=== PATIENT | male | born 1960 | race Caucasian/White ===

== ENCOUNTER → 2020-05-17 15:41 | Outpatient (CLI) | payer MEDICARE, OTHER, SELFPAY ==
--- NOTE | ~2020-05-17 | XR_ITS ---
EXAMINATION: XR shoulder RT min 2V DATE: 05/17/2020 16:18 INDICATION: Right shoulder pain TECHNIQUE: AP internally and externally rotated, AP oblique externally rotated and axillary views of the right shoulder were obtained. COMPARISON: None FINDINGS: Normal alignment. No fracture.Severe osteoarthritis at the right glenohumeral joint with severe join t space narrowing approaching [id number], subarticular cystic change at the inferior glenoid and sm all marginal osteophytes along the inferior humeral head and glenoid. Moderate acromioclavicular oste oarthritis. Soft tissues are unremarkable. Visualized portions of the lungs are clear. IMPRESSION: Moderate acromioclavicular and severe glenohumeral osteoarthritis. Reviewed, dictated and finalized at location A.
== END ==
PROVIDERS: PCP Internal Medicine; Visit Provider Nurse Practitioner Adult Health
DX: M19.011 Primary osteoarthritis, right shoulder (principal)
CPT/HCPCS: 73030

== ENCOUNTER 2024-11-20 14:34 | Outpatient (CLI) | payer MEDICARE, SELFPAY ==
[2024-11-20 14:46] LABS: Basophils Absolute Auto 0.1 K/mm3 (0.0-0.1); Basophils Percent Auto 0.8 % (0.2-1.2); Eosinophils Absolute Auto 0.3 K/mm3 (0-0.3); Eosinophils Percent Auto 4.5 % (0-4.4); Hematocrit 39.4 % (42.0-52.0); Immature Granulocyte Absolute 0.02 K/mm3 (0.00-0.031); Immature Granulocyte Percent A 0.3 % (0-0.5); Lymphocytes Absolute Auto 2.22 K/mm3 (0.9-3.2); Lymphocytes Percent Auto 30.4 % (18.3-44.2); Mean Corpuscular Hemoglobin 28.5 pg (26-34); Mean Corpuscular Volume 86.4 fl (80-100); Mean Platelet Volume 8.7 fl (7.4-10.4); Monocytes Absolute Auto 0.5 K/mm3 (0.1-0.6); Monocytes Percent Auto 6.4 % (2.6-8.5); Neutrophils Absolute Auto 4.2 K/mm3 (1.3-6.7); Neutrophils Percent Auto 57.6 % (45.5-73.1); Platelet Count Result 205 k/mm3 (150-375); Red Blood Count 4.56 M/mm3 (4.6-6.20); Red Cell Distribution Width 13.6 % (11.5-14.5); White Blood Count 7.3 K/mm3 (4.5-10.0)
[2024-11-20 16:29] LABS: Alanine Aminotransferase 21 U/L (6-50); Albumin Level 4.3 g/dL (3.5-5.1); Alkaline Phosphatase 82 U/L (38-126); Anion Gap 8 mmol/L (4-12); Aspartate Amino Transferase 55 U/L (17-59); Bilirubin,Total 0.7 mg/dL (0.2-1.3); Blood Urea Nitrogen 19 mg/dL (9-20); Calcium 9.1 mg/dL (8.4-10.2); Carbon Dioxide 29 mmol/L (22-30); Chloride 101 mmol/L (98-107); Estimated Glomerular Filt Rate > 60; Glucose 95 mg/dL (65-110); Potassium 4.3 mmol/L (3.4-5.0); Sodium 138 mmol/L (137-145)
[2024-11-20 16:59] LABS: Prostate Specific Antigen 5.3 ng/mL (< OR = 4.0)
== END 2024-11-20 14:35 | disposition home or self-care (01) ==
LOC: ANHLAB 14:36
PROVIDERS: PCP Internal Medicine; Visit Provider Internal Medicine Hematology & Oncology
DX: C61 Malignant neoplasm of prostate (principal)
CPT/HCPCS: 36415; 80053; 84153; 84402; 84403; 85025

== ENCOUNTER 2024-11-23 10:22 | Outpatient (CLI) | payer MEDICARE, SELFPAY | END 2024-11-23 10:23 | disposition home or self-care (01) | LOC: ANHAUDIO 10:22 | PROVIDERS: PCP Internal Medicine; Visit Provider Internal Medicine | DX: H90.3 Sensorineural hearing loss, bilateral (principal); H93.13 Tinnitus, bilateral | CPT/HCPCS: 92557; 92567 ==

== ENCOUNTER 2024-11-30 13:37 | Outpatient (CLI) | payer MEDICARE, SELFPAY ==
--- NOTE | ~2024-11-30 | PE_ITS ---
EXAMINATION: PET_PETPSMAST_PT DATE: 11/30/2024 15:36 INDICATION: Prostate cancer. TECHNIQUE: 5.470 mCi of Ga-68 gozetotide was administered intravenously. Low dose computed tomography (CT) images were acquired from the base of the brain to the proximal thighs for attenuation correcti on and anatomic localization. Automated exposure control was employed. Dose-length product (DLP) was 1350 mGy-cm. Positron emission tomography (PET) images were acquired in the same distribution. COMPARISON: None FINDINGS: Head/neck: There are no pathologically enlarged lymph nodes. Chest: The lungs demonstrate mild atelectasis. No pleural effusion. The heart size is normal. There a re coronary artery calcifications. No pericardial effusion. There is bilateral gynecomastia. Abdomen/pelvis/proximal thighs: The liver demonstrates surface nodularity, consistent with cirrhosis. The gallbladder, spleen, pancreas, adrenal glands, and kidneys are normal. The prostate is mildly en larged. There is increased activity in the prostate with maximum SUV of 7.7 on the left. There is div erticulosis of the colon without evidence of diverticulitis. There are no dilated loops of bowel. The re is a periumbilical portacaval shunt. Paraesophageal varices are noted. There is mild left external iliac lymphadenopathy with the largest measuring 14 x 18 mm with maximum SUV of 2.6. There is no asc ites. There is no osseous malignancy. IMPRESSION: 1. Mildly enlarged prostate with increased activity, consistent with primary malignancy. 2. Mild left external iliac lymphadenopathy with maximum SUV of 2.6, which is indeterminate for metas tatic disease. 3. Cirrhosis of the liver with portal venous hypertension. Reviewed, dictated and finalized at location B. IMPRESSION: 1. Mildly enlarged prostate with increased activity, consistent with primary ma lignancy. 2. Mild left external iliac lymphadenopathy with maximum SUV of 2.6, which is i ndeterminate for metastatic disease. 3. Cirrhosis of the liver with portal venous hypertension.
--- OUTSIDE RECORDS SUMMARY | 2024-11-30 15:41 | XMS_ITS | Patient Health Record ---
Author Organization [facility] Office Address [address] [facility] [address] [place] [address] Care Team Providers Care Business Process Manager Name Role Phone Manolo Headley Unavailable [phone] REASON FOR REFERRAL No Information MEDICATIONS Medication SIG (Take, Route, Frequency, Duration) Notes Start Date End Date Status Albuterol Sulfate 108 (90 Base) MCG/ACT 1 puff as needed Inhalation every 4 hrs 10/28/2024 Active Albuterol Sulfate 108 (90 Base) MCG/ACT 1 puff as needed Inhalation every 4 hrs 11/04/2024 Active Calcitriol 0.25 MCG TAKE 1 CAPSULE BY MO UT EVERY OTHER DAY for 90 Active Lasix 20 MG 1 tablet Orally Once a day for 90 days 06/03/2024 05/29/2025 Active Lasix 40 MG 1 tablet Orally Once a day for 90 days 05/31/2023 Active Lisinopril 20 MG 1 tablet Orally twic e a day for 90 days 05/31/2023 Active Vitamin D (Ergocalciferol) 1.25 MG (07932 UT) Take 1 capsule by mouth once a week for Active Tamsulosin HCl 0.4 MG Take 1 capsule by mouth once daily for 90 Active Sodium Chloride 1 GM as directed Orally once a day for 90 days 06/03/2024 10/23/2025 Active Lisinopril 20 MG 1 tablet Orally twic e a day for 90 days 09/27/2023 Active PROBLEMS Problem Type ICD Code Onset Dates Problem Status W/U Status Risk SNOMED Code Notes Problem Type 2 diabetes mellitus with hyperglycemia (E11.65) Active confirmed Hyperglycemia d ue to type 2 diabetes mellitus (217700358455364) Problem Type 2 diabetes mellitus with hyperglycemia (E11.65) Active confirmed Hyperglycemia d ue to type 2 diabetes mellitus (582955459643254) Problem Syndrome of inappropriate secretion of antidiuretic hormone (E22.2) Active confirmed Syndrome of inappropriate secretion of antidiuretic hormone (72045792) Problem Obesity, unspecified (E66.9) Active confirmed Obesity (761878537) Problem Hyperlipidemia, unspecified (E78.5) Active confirmed Hyperlipidemia (61974007) Problem Nicotine dependence, cigarettes, uncomplicated (F17.210) Active confirmed Tobacco user (725332922) Problem Essential (primary) hypertension (I10) Active confirmed Essential hypertension (25099438) Problem Chronic kidney disease, stage 2 (mild) (N18.2) Active confirmed Chronic kidne y disease stage 2 (778407006) Problem Chronic kidney disease, stage 2 (mild) (N18.2) Active confirmed Chronic kidne y disease stage 2 (136439752) Problem Renal osteodystrophy (N25.0) Active confirmed Renal osteodystrophy (13421451) Problem Other proteinuria (R80.8) Active confirmed Proteinuria (34072550) Problem Proteinuria, unspecified (R80.9) Active confirmed Proteinuria (88691157) Problem Essential hypertension (I10) Active confirmed Essential hypertension (07136404) Encounters Encounter Location Date Provider Diagnosis [facility] [address] [address] 12/20/2023 Manolo Headley Chronic kidney disea se, stage 2 (mild) N18.2 ; Essential hypertension I10 ; Proteinuria, unspecified R80.9 ; Type 2 diabetes mellitus with hyperglycemia E11.65 ; Obesity, unspecified E66.9 and Hyperlipidemia, unspecified E78.5 [facility] [address] [address] 03/06/2024 Manolo Headley Chronic kidney disea se, stage 2 (mild) N18.2 ; Essential hypertension I10 ; Proteinuria, unspecified R80.9 ; Type 2 diabetes mellitus with hyperglycemia E11.65 ; Obesity, unspecified E66.9 and Hyperlipidemia, unspecified E78.5 [facility] [address] [address] 06/03/2024 Manolo Headley Syndrome of inappropriate secretion of antidiuretic hormone E22.2 ; Hypo-osmolality and hyponatremia E87.1 ; Edema, unspecified R60.9 and Nicotine dependence, cigarettes, uncomplicated F17.210 [facility] [address] [address] 07/29/[address] [facility] [address] [address] 08/14/2024 Manolo Headley [facility] [address] [address] 09/02/2024 Manolo Headley Chronic kidney disea se, stage 2 (mild) N18.2 ; Essential (primary) hypertension I10 ; Type 2 diabetes mellitus with hyperglycemia E11.65 ; Proteinuria, unspecified R80.9 ; Renal osteodystrophy N25.0 and Hyperlipidemia, unspecified E78.5 [facility] [address] [address] 11/18/2024 Manolo Headley [facility] [address] [place] [address] 10/28/2024 Manolo Headley [facility] [address] [address] 11/04/2024 Manolo Headley [facility] [address] [address] 06/03/2024 Manolo Headley ASSESSMENTS Encounter Date Diagnosis Assessment Notes Treatment Notes Treatment Clinical Notes Section Notes 12/20/2023 Chronic kidney disease, stage 2 (mild) (ICD-10 - N18.2) 03/06/2024 Chronic kidney disease, stage 2 (mild) (ICD-10 - N18.2) 06/03/2024 Syndrome of inappropriate secretion of antidiuretic hormone (ICD-10 - E22.2) 06/03/2024 Hypo-osmolality and hyponatremia (ICD-10 - E87.1) 09/02/2024 Essential (primary) hypertension (ICD-10 - I10) 09/02/2024 Chronic kidney disease, stage 2 (mild) (ICD-10 - N18.2) 03/06/2024 Essential hypertension (ICD-10 - I10) 06/03/2024 Edema, unspecified (ICD-10 - R60.9) 09/02/2024 Type 2 diabetes mellitus with hyperglycemia (ICD-10 - E11.65) 12/20/2023 Essential hypertension (ICD-10 - I10) 03/06/2024 Proteinuria, unspecified (ICD-10 - R80.9) 12/20/2023 Proteinuria, unspecified (ICD-10 - R80.9) 06/03/2024 Nicotine dependence, cigarettes, uncomplicated (ICD-10 - F17.210) 09/02/2024 Proteinuria, unspecified (ICD-10 - R80.9) 09/02/2024 Renal osteodystrophy (ICD-10 - N25.0) 03/06/2024 Type 2 diabetes mellitus with hyperglycemia (ICD-10 - E11.65) 12/20/2023 Type 2 diabetes mellitus with hyperglycemia (ICD-10 - E11.65) 12/20/2023 Obesity, unspecified (ICD-10 - E66.9) 03/06/2024 Obesity, unspecified (ICD-10 - E66.9) 09/02/2024 Hyperlipidemia, unspecified (ICD-10 - E78.5) 03/06/2024 Hyperlipidemia, unspecified (ICD-10 - E78.5) 12/20/2023 Hyperlipidemia, unspecified (ICD-10 - E78.5) PLAN OF TREATMENT Next Appt Details Provider Name:Manolo Headley , 12/02/2024 04:15:00 PM, [address], [facility] [address], [address],
--- OUTSIDE RECORDS SUMMARY | 2024-11-30 15:42 | XMS_ITS | Clinical Summary ---
Author Organization [facility] Address [address] [place] [address] Phone Care Team Providers Care Construction Field Engineer Name Role Phone Brody Gonzalez MD Primary Care Provider Peter Reyes MD Unavailable Allergies No known active allergies Medications albuterol 108 (90 Base) MCG/ACT Aerosol Solution take 2 Puffs by inhalation. 02/27/2018 Active Fluticasone-Ume clidin-Vilant 100-62.5-25 MCG/ACT AEROSOL POWDER, BREATH ACTIVATED take 1 Puff by inhalation. Active ergocalciferol (VITAMIN D) 57768 UNIT Capsule TAKE 1 CAPSULE BY MOUTH ONCE A WEEK 11/27/2023 Active furosemide (Lasix) 40 MG Tablet 1 tablet Orally Once a day for 90 days 05/31/2023 Active gabapentin (NEURONTIN) 600 MG Tablet Take 600 mg by mouth. 12/11/2017 Active lisinopril (PRINIVIL, ZESTRIL) 20 MG Tablet 1 tablet Orally twice a day for 90 days 05/31/2023 Active metFORMIN (GLUCOPHAGE) 500 MG Tablet 02/20/2023 Activ e sertraline (ZOLOFT) 50 MG Tablet Take 50 mg by mouth. Active spironolactone (ALDACTONE) 50 MG Tablet Take 50 mg by mouth. 01/19/2021 Active tamsulosin (FLOMAX) 0.4 MG Capsule Take 0.4 mg by mouth. 12/26/2017 Active Mounjaro 2.5 MG/0.5ML Solution Pen-injector INJECT 1 PEN ONCE A WEEK 11/04/2023 Active Tadalafil 5 MG Tablet Take 1 Tablet by mouth daily. 90 Tablet 3 01/09/2024 Active Encounters Date Type Department Care Team Description 11/18/2024 Telephone [facility] [address] [place] [address] Peter Reyes MD Information 10/15/2024 11:15 AM BRANCH LEAD Initial Consult [facility] [address] [place] [address] Ty Hernandez MD Prostate cancer (HCC) (Primary Dx) Discharge Disposition: Discharged to home or Selfcare 10/15/2024 Travel 10/13/2024 Travel 10/08/2024 11:15 AM BRANCH LEAD Office Visit [facility] [address] [place] [address] Peter Reyes MD Prostate cancer (HCC) (Primary Dx) Discharge Disposition: Discharged to home or Selfcare 10/06/2024 Travel 09/30/2024 Telephone [facility] [address] [place] [address] Peter Reyes MD from Last 3 Months Immunizations Immunization Administration Dates Next Due Covid-19, Mrna, Lnp-s, Pf, 1 00 Mcg Or 50 Mcg Dose (MODERNA) 01/03/2022,02/16/2021,01/26/2021 Influenza Vaccine, Quadrivalent, PF /03/2023,08/30/2022,07/14/2020,2017 Influenza, Injectable, Quadrivalent 06/25/2018 Influenza, Seasonal, Injecta ble, Undefined 06/25/2021 Influenza,Split Virus,Trivalent,Injectable,PF 08/06/2024 Family History Medical History Relation Name Comments Hypertension Brother Kidney Disease Brother Chronic Obstructive Pulmonary Disease Mother pulmonary arrest Mother Heart Disease Sister Kidney Disease Sister Relation Name Status Comments Brother Mother Sister Social History Tobacco Use Types Packs/Day Years Used Date Smoking Tobacco: Every Day Cigarettes Smokeless Tobacco: Never Tobacco Cessation:Ready to Q uit: Not Asked; Counseling Given: Not Answered Alcohol Use Standard Drinks/Week Comments Not Currently 0 (1 standard drink = 0.6 oz pur e alcohol) Sexually Active Control Partners Comments Not Currently Sex and Gender Information Value Date Recorded Sex Assigned at Not on file Legal Sex Male 10:28 AM CDT Gender Identity Not on file Sexual Orientation Not on file Last Filed Vital Signs Vital Sign Reading Time Taken Comments Blood Pressure 116/64 10/15/2024 11:26 AM BRANCH LEAD Pulse 96 10/15/2024 11:26 AM BRANCH LEAD Temperature 36.3 C (97.3 F) 10/15/2024 11:26 AM BRANCH LEAD Respiratory Rate 20 10/15/2024 11:2 6 AM BRANCH LEAD Oxygen Saturation 99% 10/15/2024 11: 26 AM BRANCH LEAD Inhaled Oxygen Concentration - - Weight 124.9 kg (275 lb 4.8 oz) 025 11:26 AM BRANCH LEAD Height 176.5 cm (5' 9.5 ) 10/15/2024 11 :26 AM BRANCH LEAD Body Mass Index 40.07 10/15/2024 11:26 AM BRANCH LEAD Plan of Treatment Upcoming Encounters Date Type Department Care Team (Late st Contact Info) Description 12/10/2024 8:00 AM CDT Office Visit [facility] [address] [place] [address] Peter Reyes MD [address] [address] Health Maintenance Due Date Last Done Comments TdaP Immunization 1960 Pneumococcal Immunization (50+ years) (1 of 2 - PCV) 1979 Zoster Immunization (1 of 2) 1979 Colonoscopy 2005 Colorectal Cancer Screening 2005 Cologuard 2010 Immunochemical Fecal Occult Blood 2010 Respiratory Syncytial Virus (RSV) Immunization (Adult) (1 - Risk 60-74 years 1-dose series) 2020 SARS-COV-2 Immunization ( season) 2024 01/09/2023, 01/03/2022, 11/04/2021, Additional history exists Hepatitis C Virus (HCV) Screening Discontinued 09/20/2015 PSA Discussion Completed 06/03/2024, 01/09/2024 Influenza Immunization Completed , 08/29/2023, 08/30/2022, Additional history exists Hepatitis B Immunization Aged Out No longer eligible based on patient's age to complete this topic Meningococcal Immunization (ACWY) Aged Out No longer eligible based on patient's age to complete this topic Rotavirus Immunization Aged Out No lo nger eligible based on patient's age to complete this topic Procedures Procedure Name Priority Date/Time Associated Diagnosis Comments PSA DIAGNOSTIC,TOTAL Routine 06/03/2024 10:44 AM CDT Prostate cancer screening from Last 3 Months or Most Recently Relevant to Health Maintenance Results * (ABNORMAL) PSA DIAGNOSTIC,TOTAL (06/03/2024 10:44 AM CDT) PSA, TOTAL (PROSTATIC SPECIFIC ANTIGEN) 6.40(H) <4.00 ng/mL 06/03/2024 12:50 PM CDT [facility] Blood Venipuncture / Unknown 06/03/2024 10:44 AM CDT 06/03/2024 12:09 PM CDT Narrative [facility] - 06/03/2024 12:50 PM CDT PSA NOTE: The PSA value should be used in conjunction with information available from clinical evaluation and other diagnostic procedures. The ALINITY Total PSA assay is a Chemiluminescent Microparticle Immunoassay (CMIA) for the quantitative determination of total PSA (both free PSA and PSA complexed to [id number]) in human serum. Total PSA values obtained with different assay methods, including [place] PSA assays, cannot be used interchangeably. us Peter Reyes MD CHEMISTRY ORDERABLES Final Resul t [facility] [address] [place] [address] from Last 3 Months or Most Recently Relevant to Health Maintenance Insurance MEDICARE C [facility] Care Teams Construction Field Engineer Relationship Specialty Start Date End Date Brody Gonzalez MD [address] [place] [address] PCP - General Internal Medicine 01/15/23 Peter Reyes MD [address] [address] Consulting Physician Urology 08/10/24
--- OUTSIDE RECORDS SUMMARY | 2024-11-30 15:42 | XMS_ITS | Data Portability ---
Author Organization [place] [facility] [employer], Main Office Address [address] [place] [address] Care Team Providers Care Bench Molder Apprentice Name Role Phone EDSON HAN Milk Of Lime Slaker [facility] Contracts Specialist [phone] MANOLO CISNEROS Wet Cotton Feeder WALTER GONZALEZ Primary Care Provider [phone] [facility]STR[facility] Gastroen terologist LUÍS FRAZIER Per Diem Clerk [phone] DEON MONZON Hand Button Splitter KANDIS REYES Urologist Assessment Encounter Date Assessment Date Assessment LastModified by Organization Details LastModified Time 10/08/2023 10/08/2023 12/25/2022: PSA 4.35 HDL 37 A1C 6.2 05/08/2023: A1C 6.3 Gluc 111 08/08/2023: A1C 6.5 Not available 10/08/2023 15:21:39 01/02/2024 01/02/2024 12/25/2022: PSA 4.35 HDL 37 A1C 6.2 05/08/2023: A1C 6.3 Gluc 111 08/08/2023: A1C 6.5 01/01/2024: A1C 6.0 TSH 0.415L Gluc 101 Not available 01/02/2024 12:37:38 05/07/2024 05/07/2024 12/25/2022: PSA 4.35 HDL 37 A1C 6.2 05/08/2023: A1C 6.3 Gluc 111 08/08/2023: A1C 6.5 01/01/2024: A1C 6.0 TSH 0.415L Gluc 101 01/09/2024: PSA 6.05H 45 minutes spent with the patient, spent on reviewing diagnosis, and spent on reviewing and filling the disability paperwork romeo Not available 05/14/2024 15:47:01 08/06/2024 08/06/2024 12/25/2022: PSA 4.35 HDL 37 A1C 6.2 05/08/2023: A1C 6.3 Gluc 111 08/08/2023: A1C 6.5 01/01/2024: A1C 6.0 TSH 0.415L Gluc 101 01/09/2024: PSA 6.05H 05/26/2024: Dr Kayode TORREZ H/H 13.0/38.9 06/03/2024: Dr Allred PSA 6.4 06/03/2024: A1C 6.0 45 minutes spent with the patient, spent on reviewing diagnosis, reviewed GI note, discussed his apt with his urologist romeo Not available 08/06/2024 13:58:25 11/03/2024 11/03/2024 12/25/2022: PSA 4.35 HDL 37 A1C 6.2 05/08/2023: A1C 6.3 Gluc 111 08/08/2023: A1C 6.5 01/01/2024: A1C 6.0 TSH 0.415L Gluc 101 01/09/2024: PSA 6.05H 05/26/2024: Dr Kayode TORREZ H/H 13.0/38.9 06/03/2024: Dr Allred PSA 6.4 06/03/2024: A1C 6.0 45 minutes spent with the patient, spent on reviewing diagnosis, reviewed prostate biopsy report, discussed his apt with his urologist, chart updated romeo Not available 11/03/2024 18:17:26 Plan of Treatment Reminders Order Date Submit Date Provider Last Modified By Organization Details Last Modified Time Details Appointments Any 15 2024 10:45A Warner segal MD Not available Not available Not available Lab CMP, serum or plasma 2024 025 [facility] (Lab), [address] [place], [address], 11/20/2024 19:18:34 CBC w/ auto diff 2024 025 [facility] (Lab), [address] [place], [address], 11/20/2024 17:07:20 lipid panel, serum [address] (Lab), [address] [place], [address], 11/04/2024 10:42:02 TSH, serum or plasma [address] (Lab), [address] [place], [address], 11/04/2024 10:42:02 glycohemo globin, total, blood [address] (Lab), [address] [place], [address], 11/04/2024 10:42:01 microalbu min, urine [address] (Lab), [address] [place], [address], 11/04/2024 10:42:02 CMP, serum or plasma [email or web address] (Lab), [address] [place], [address], 08/06/2024 13:22:13 CBC w/ auto diff [email or web address] (Lab), [address] [place], [address], 08/06/2024 13:22:13 lipid panel, serum [address] (Lab), [address] [place], [address], 08/06/2024 13:22:13 TSH, serum or plasma [address] (Lab), [address] [place], [address], 08/06/2024 13:22:13 glycohemo globin, total, blood [address] (Lab), [address] [place], [address], 08/06/2024 13:22:13 microalbu min, urine [address] (Lab), [address] [place], [address], 08/06/2024 13:22:13 CMP, serum or plasma 2023 024 [facility] (Lab), [address] [place], [address], 05/27/2024 00:58:57 CBC w/ auto diff 2023 024 [facility] (Lab), [address] [place], [address], 05/27/2024 00:58:58 lipid panel, serum 2023 024 [facility] (Lab), [address] [place], [address], 05/26/2024 18:16:53 TSH, serum or plasma [address] (Lab), [address] [place], [address], 11/03/2024 11:10:47 PSA, total + free, serum or plasma 2023 024 [facility] (Lab), [address] [place], [address], 06/03/2024 19:08:47 glycohemo globin, total, blood 2023 024 [facility] (Lab), [address] [place], [address], 05/26/2024 22:27:16 microalbu min, urine [address] (Lab), [address] [place], [address], 11/03/2024 11:10:46 CMP, serum or plasma 2023 024 [facility] (Lab), [address] [place], [address], 01/03/2024 12:44:11 CBC w/ auto diff 2023 024 [facility] (Lab), [address] [place], [address], 01/03/2024 12:44:10 lipid panel, serum 2023 024 [facility] (Lab), [address] [place], [address], 01/03/2024 12:44:12 TSH, serum or plasma 2023 024 [facility] (Lab), [address] [place], [address], 01/03/2024 12:44:12 PSA, total + free, serum or plasma 2023 024 [facility] (Lab), [address] [place], [address], 01/10/2024 01:53:18 glycohemo globin, total, blood 2023 024 [facility] (Lab), [address] [place], [address], 01/03/2024 12:44:13 microalbu min, urine 2023 024 [facility] (Lab), [address] [place], [address], 01/03/2024 12:44:11 CMP, serum or plasma [address] (Lab), [address] [place], [address], 04/08/2024 17:52:45 CBC w/ auto diff [address] (Lab), [address] [place], [address], 04/08/2024 17:52:45 lipid panel, serum [address] (Lab), [address] [place], [address], 04/08/2024 17:52:45 TSH, serum or plasma [address] (Lab), [address] [place], [address], 04/08/2024 17:52:45 glycohemo globin, total, blood [address] (Lab), [address] [place], [address], 04/08/2024 17:52:44 microalbu min, urine 2023 024 [email or web address] [facility] ([facility]), [address] [facility], [place], [address], 04/08/2024 17:52:44 Referral nephrolog ist referral - Please call patient to schedule an appointme nt. Thank you. 2024 025 MATILDA Cisneros MD (Nephrology, [address], [address], [place], [address], 11/09/2024 16:58:22 pulmonolo gist referral 2024 025 MATILDA Han [facility]-, [address] [facility], [address], [place], [address], 11/04/2024 14:30:53 oncologis t referral - Please call patient to schedule an appointme nt. Thank you 2024 025 MATILDA Augustin MD, [address], [place], [address], 11/23/2024 17:01:[address] referral - Please call patient to schedule an appointme nt. Thank you. 2024 025 [facility], [address], [place], [address], 11/04/2024 18:30:33 podiatris t referral 2024 025 HILLARY Flores DPM, [address], [address], [place], [address], 11/04/2024 14:14:27 orthopedi c surgeon referral - Please call patient to schedule an appointme nt. Thank you. 2024 025 HILLARY Rosen PA, [address], [place], [address], 11/04/2024 14:30:25 nephrolog ist referral 2023 024 [email or web address] Manolo Cisneros MD (Nephrology, [address], [address], [place], [address], 08/10/2024 13:00:38 gastroent erologist referral 2023 024 [email or web address] Luís Frazier MD, [address] [place], [address], 08/10/2024 13:00:40 pulmonolo gist referral 2023 024 [email or web address] Edson Han [facility]-, [address] [facility], [address], [place], [address], 08/10/2024 13:00:41 urologist referral 2023 024 [email or web address] Kandis Reyes MD, [address] [facility], [address], [place], [address], 08/10/2024 13:02:[address] referral - Please call patient to schedule. [address] (Audiology), [facility] [address], [place], [address], 11/12/2024 08:46:31 cardiolog ist referral 2023 024 Gamaliel Jeffries MD, [address] [facility], [address], [place], [address], 08/10/2024 13:00:39 podiatris t referral 2023 024 Zac Flores DPM, [address] [facility], [address], [place], [address], 08/10/2024 13:01:16 orthopedi c surgeon referral - Please call patient to schedule. 2023 024 [email or web address] [facility], [address], [place], [address], 11/12/2024 08:46:30 nephrolog ist referral 2023 024 [email or web address] Manolo Cisneros MD (Nephrology, [address], [address], [place], [address], 11/03/2024 11:11:21 gastroent erologist referral 2023 024 [email or web address] Luís Frazier MD, [address] [place], [address], 11/03/2024 11:11:25 pulmonolo gist referral 2023 024 Edson Han [facility]-, [address] [facility], [address], [place], [address], 11/03/2024 11:11:[address] referral 2023 024 [email or web address] [facility] [address], [place], [address], 06/04/2024 17:47:22 cardiolog ist referral 2023 024 [email or web address] Gamaliel Jeffries MD, [address], [address], [place], [address], 11/03/2024 11:11:23 orthopedi c surgeon referral 2023 024 [email or web address] Kalen Marquis MD (Orthopedics) , [address], [address], [place], [address], 11/03/2024 11:11:28 urologist referral 2023 024 Kandis Reyes MD, [address] [facility], [address], [place], [address], 11/03/2024 11:11:24 podiatris t referral 2023 024 [email or web address] Zac Flores DPM, [address], [address], [place], [address], 11/03/2024 11:11:22 nephrolog ist referral 2023 024 [email or web address] Manolo Cisneros MD (Nephrology, [address], [address], [place], [address], 06/30/2024 08:48:48 gastroent erologist referral 2023 024 [email or web address] Luís Frazier MD, [address] [place], [address], 06/30/2024 08:49:52 pulmonolo gist referral 2023 024 [email or web address] Edson Han [facility], [address] [facility], [address], [place], [address], 06/30/2024 08:50:15 cardiolog ist referral 2023 024 [email or web address] Gamaliel Jeffries MD, [address] [facility], [address], [place], [address], 06/30/2024 08:50:44 orthopedi c surgeon referral 2023 024 [email or web address] Kalen Marquis MD (Orthopedics) , [address], [address], [place], [address], 06/30/2024 08:50:45 urologist referral 2023 024 [email or web address] Kandis Reyes MD, [address] [facility], [address], [place], [address], 06/30/2024 08:49:27 podiatris t referral 2023 024 [email or web address] Zac Flores [facility], [address] [facility], [address], [place], [address], 06/30/2024 08:48:49 nephrolog ist referral 2023 024 Manolo Cisneros MD (Nephrology, [address], [address], [place], [address], 04/08/2024 17:51:46 gastroent erologist referral 2023 024 Luís Frazier MD, [address] [place], [address], 04/08/2024 17:51:51 pulmonolo gist referral 2023 024 [email or web address] Edson Han [facility], [address] [facility], [address], [place], [address], 04/08/2024 17:51:52 urologist referral 2023 024 Kandis Reyes MD, [address] [facility], [address], [place], [address], 04/08/2024 17:51:49 cardiolog ist referral 2023 024 [email or web address] Gamaliel Jeffries MD, [address] [facility], [address], [place], [address], 04/08/2024 17:51:48 podiatris t referral 2023 024 [email or web address] Zac Flores DPM, [address] [facility], [address], [place], [address], 04/08/2024 17:51:47 Procedures colonosco py screening (PROC) - Please call patient to schedule an appointme nt. Thank you. 2024 025 [facility], [address], [address], [place], [address], 11/04/2024 15:00:46 upper endoscopy procedure (EGD) (PROC) - Please call patient to schedule an appointme nt. Thank you. 2024 025 [facility] Gastroenterol [facility], [address], [address], [place], [address], 11/04/2024 15:05:23 colonosco py screening (PROC) 2023 024 [email or web address] [facility] Gastroenterol [facility]gy, [address], [address], [place], [address], 11/26/2024 10:46:22 upper endoscopy procedure (EGD) (PROC) - Please call patient to schedule. 2023 024 [email or web address] [facility] Gastroenterol ogy, [address], [address], [place], [address], 11/26/2024 10:45:17 colonosco py screening (PROC) 2023 024 [email or web address] Zamudio MD, [address], [address], [place], [address], 11/26/2024 10:42:25 upper endoscopy procedure (EGD) (PROC) 2023 024 [email or web address] Zamudio MD, [address], [address], [place], [address], 11/26/2024 10:43:03 colonosco py screening (PROC) 2023 024 nuvia Weinberg MD, [address], [address], [place], [address], 06/30/2024 08:47:57 upper endoscopy procedure (EGD) (PROC) 2023 024 nuvia Weinberg MD, [address], [address], [place], [address], 06/30/2024 08:47:56 colonosco py screening (PROC) 2023 024 nuvia Weinberg MD, [address], [address], [place], [address], 04/08/2024 17:52:21 upper endoscopy procedure (EGD) (PROC) 2023 024 nuvia Weinberg MD, [address], [address], [place], [address], 04/08/2024 17:52:19 Surgeries None recorded. Imaging LDCT, chest, for lung cancer screening - Please call patient to schedule. [facility] 2024 [facility]25 [facility], [address] [place] [address], [address], [place], [address], 11/04/2024 09:30:54 Medication Orders albuterol sulfate HFA 90 mcg/actua tion aerosol inhaler 2024 025 HILLARY [facility] ([facility]), [address] [place] [address], [facility] [place], [id number], 11/17/2024 08:59:38 Breztri Aerospher e 160 mcg-9mcg- 4.8mcg/ac tuation HFA aerosol inhaler 2023 024 rosalio mares [facility], [address] [facility], [place], [address], 05/07/2024 12:07:34 Breztri Aerospher e 160 mcg-9mcg- 4.8mcg/ac tuation HFA aerosol inhaler [address] [facility], [address] [place], [address], 01/02/2024 12:52:38 Patient TargetsNo targets recorded. Patient Instructions Encounter Date Encounter Id Patient Instructions Last Modified By Organization Details Last Modified Time 01/02/2024 [id number] depression screening* [email or web address] 2 Not available 01/08/2024 18:09:38 alcohol misuse* [email or web address] 2 Not available 01/08/2024 18:09:37 Timed Up and Go test (TUG)* [email or web address] 2 Not available 01/08/2024 18:09:38 dementia rating scale-2* [email or web address] 2 Not available 01/08/2024 18:09:37 multi-dimensiona l health assessment questionnaire* [email or web address] 2 Not available 01/08/2024 18:09:37 diabetic eye exam* [email or web address] Not availa ble 06/30/2024 09:23:21 Personalized a [facility] Plan and Screening Recommendations Advance Directives - Do you have one? No Advance Directives - Do we have your advance directive on file in your health record? Primary Prevention/Interven tion (prevents or decreases the chance of common diseases from occurring) Smoking Risk: Smoker Refer to attached smoking cessation handouts Refer to attached handouts and prescription will be sent to pharmacy Continue to consider stopping smoking and call if we can assist you Alcohol Misuse Screening: Negative Weight: Appropriate Overwei ght continue your current weight loss efforts try to lose 5% of your body weight try to lose 10% of your body weight Physical activity: Need more exercise/physical activity decrease sitting time to no more than 5hr/day Nutrition: Good Average Fall Risk (screened today): Low Intermediate Refer to attached handout Preventing Falls: After your Visit Recommend regular use of cane or walker Vaccines Pneumococcal: Influenza: Your next one in the fall of this year Chronic Disease Risks Stroke: Low Risk Intermediate Risk I have no recommendations Act thea diagnosis, Continue current treatment plan Heart Attack: Low risk Intermediate Risk I have no recommendations Act thea diagnosis, Continue current treatment plan Clogging of the Arteries: Low risk Intermediate Risk I have no recommendations Act thea diagnosis, Continue current treatment plan Diabetes: High Risk Active diagnosis, Continue current treatment plan Secondary Prevention/Interven tion (detects treatable diseases before they may cause symptoms, disability, or ) Prostate Cancer Screening: No digital rectal exam screening necessary Colon Cancer Screening: Colonoscopy Date Screening Last Performed: ___2019____ Eye Disease Screening: Dementia Risk: Low I have no recommendations Depression Screening: Negative Positive Active diagnosis, Continue current treatment plan [email or web address] Not available 01/02/2024 14:33:49 05/07/2024 [id number] diabetic eye exam* [email or web address] Not avail able 11/03/2024 08:06:49 08/06/2024 [id number] diabetic eye exam* ellen mann 2 Not available 08/06/2024 13:22:14 Reason for Referral Wet Cotton Feeder Referral for Pr oteinuria Referring Physician: Walter Gonzalez Internal Medicine, Encounter Date: 10/08/2023 Hand Button Splitter Referral for Type 2 diabetes mellitus without complication Referring Physician: Nathalia Naik Medicine, Encounter Date: 10/08/2023 Contracts Specialist Referral for Es sential hypertension Referring Physician: Nathalia Naik Medicine, Encounter Date: 10/08/2023 Urologist Referral for Prost ate specific antigen above reference range Referring Physician: Walter Gonzalez Internal Medicine, Encounter Date: 10/08/2023 Per Diem Clerk Referral for Chronic hepatitis C Referring Physician: Nathalia Naik Medicine, Encounter Date: 10/08/2023 Milk Of Lime Slaker Referral for C hronic obstructive pulmonary disease Referring Physician: Nathalia Naik Medicine, Encounter Date: 10/08/2023 Wet Cotton Feeder Referral for Pr oteinuria Referring Physician: Nathalia Naik, Encounter Date: 01/02/2024 Hand Button Splitter Referral for Type 2 diabetes mellitus without complication Referring Physician: Nathalia Naik, Encounter Date: 01/02/2024 Contracts Specialist Referral for Es sential hypertension Referring Physician: Walter Gonzalez Internal Medicine, Encounter Date: 01/02/2024 Urologist Referral for Prost ate specific antigen above reference range Referring Physician: Walter Gonzalez Internal Medicine, Encounter Date: 01/02/2024 Per Diem Clerk Referral for Chronic hepatitis C Referring Physician: Walter Gonzalez Internal Medicine, Encounter Date: 01/02/2024 Milk Of Lime Slaker Referral for C hronic obstructive pulmonary disease Referring Physician: Walter Gonzalez Internal Medicine, Encounter Date: 01/02/2024 Orthopedic Surgeon Referral for Pain of bilateral knee joints Referring Physician: Walter Gonzalez Internal Medicine, Encounter Date: 01/02/2024 Wet Cotton Feeder Referral for Pr oteinuria Referring Physician: Walter Gonzalez Internal Medicine, Encounter Date: 05/07/2024 Hand Button Splitter Referral for Type 2 diabetes mellitus without complication Referring Physician: Walter Gonzalez Internal Medicine, Encounter Date: 05/07/2024 Contracts Specialist Referral for Es sential hypertension Referring Physician: Nathalia Naik Medicine, Encounter Date: 05/07/2024 Urologist Referral for Prost ate specific antigen above reference range Referring Physician: Walter Gonzalez Internal Medicine, Encounter Date: 05/07/2024 Per Diem Clerk Referral for Chronic hepatitis C Referring Physician: Nathalia Naik Medicine, Encounter Date: 05/07/2024 Milk Of Lime Slaker Referral for C hronic obstructive pulmonary disease Referring Physician: Nathalia Naik, Encounter Date: 05/07/2024 Orthopedic Surgeon Referral for Pain of bilateral knee joints Referring Physician: Nathalia Naik, Encounter Date: 05/07/2024 [employer] Make Up Helper Referral for Hea ring loss Referring Physician: Walter Gonzalez Internal Medicine, Encounter Date: 05/07/2024 Wet Cotton Feeder Referral for Pr oteinuria Referring Physician: Walter Gonzalez Internal Medicine, Encounter Date: 08/06/2024 Hand Button Splitter Referral for Type 2 diabetes mellitus without complication Referring Physician: Walter Gonzalez Internal Medicine, Encounter Date: 08/06/2024 Contracts Specialist Referral for Es sential hypertension Referring Physician: Walter Gonzalez Internal Medicine, Encounter Date: 08/06/2024 Urologist Referral for Prost ate specific antigen above reference range Referring Physician: Walter Gonzalez Internal Medicine, Encounter Date: 08/06/2024 Per Diem Clerk Referral for Chronic hepatitis C Referring Physician: Nathalia Naik Medicine, Encounter Date: 08/06/2024 Milk Of Lime Slaker Referral for C hronic obstructive pulmonary disease Referring Physician: Nathalia Naik Medicine, Encounter Date: 08/06/2024 Orthopedic Surgeon Referral for Pain of bilateral knee joints Please call patient to schedule. Referring Physician: Nathalia Naik, Encounter Date: 08/06/2024 Cd [employer] Materials Make Up Helper Referral for Hea ring loss Please call patient to schedule. Referring Physician: Nathalia Naik, Encounter Date: 08/06/2024 Wet Cotton Feeder Referral for Pr oteinuria Please call patient to schedule an appointment. Thank you. Referring Physician: Nathalia Naik, Encounter Date: 11/03/2024 Hand Button Splitter Referral for Type 2 diabetes mellitus without complication Referring Physician: Nathalia Naik, Encounter Date: 11/03/2024 Milk Of Lime Slaker Referral for C hronic obstructive pulmonary disease Referring Physician: Nathalia Naik, Encounter Date: 11/03/2024 Orthopedic Surgeon Referral for Pain of bilateral knee joints Please call patient to schedule an appointment. Thank you. Referring Physician: Walter Gonzalez Internal Medicine, Encounter Date: 11/03/2024 [employer] Make Up Helper Referral for Hea ring loss Please call patient to schedule an appointment. Thank you. Referring Physician: Walter Gonzalez Internal Medicine, Encounter Date: 11/03/2024 Please call patient to sched ule an appointment. Thank you Referring Physician: Walter Gonzalez, Internal Medicine, Encounter Date: 11/03/2024 Results Created Date Observation Date Name Description Value Unit Range Abnormal Flag Note LastModifiedBy Organization Detail LastModifiedTime 01/01/20 24 01/01/2024 CBC/C OMPLE TE BLD COUNT W/DIF F white blood cells 10.1 x10'3 /uL 4.2-10 .8 Not Available [facility] (Lab) [address] [place], [address], 01/01/2024 18:00:37 01/01/20 24 01/01/2024 CBC/C OMPLE TE BLD COUNT W/DIF F red blood cells 4.84 x10'6 /uL 4.10-5 .80 Not Available [facility] (Lab) [address] [place], [address], 01/01/2024 18:00:37 01/01/20 24 01/01/2024 CBC/C OMPLE TE BLD COUNT W/DIF F hemoglobin 14.0 g/dL 13.2-1 7.0 Not Available [facility] (Lab) [address] [place], [address], 01/01/2024 18:00:37 01/01/20 24 01/01/2024 CBC/C OMPLE TE BLD COUNT W/DIF F hematocrit 42.2 % 39.3-5 0.0 Not Available [facility] (Lab) [address] [place], [address], 01/01/2024 18:00:37 01/01/20 24 01/01/2024 CBC/C OMPLE TE BLD COUNT W/DIF F mean red cell volume 87.2 fL 80.0-9 7.0 Not Available [facility] (Lab) [address] [place], [address], 01/01/2024 18:00:37 01/01/20 24 01/01/2024 CBC/C OMPLE TE BLD COUNT W/DIF F mean red cell hemoglobin 28.9 pg 27.0-3 3.0 Not Available [facility] (Lab) [address] [facility] [place], [address], 01/01/2024 18:00:37 01/01/20 24 01/01/2024 CBC/C OMPLE TE BLD COUNT W/DIF F mean RBC HGB concentratio n 33.2 g/dL 31.0-3 6.0 Not Available [facility] (Lab) [address] [place], [address], 01/01/2024 18:00:37 01/01/20 24 01/01/2024 CBC/C OMPLE TE BLD COUNT W/DIF F red cell distribution width 14.1 % 11.8-1 5.5 Not Available [facility] (Lab) [address] [place], [address], 01/01/2024 18:00:37 01/01/20 24 01/01/2024 CBC/C OMPLE TE BLD COUNT W/DIF F platelets 236 x10'3 /uL 150-40 0 Not Available [facility] (Lab) [address] [place], [address], 01/01/2024 18:00:37 01/01/20 24 01/01/2024 CBC/C OMPLE TE BLD COUNT W/DIF F mean platelet volume 9.5 fL 9.0-12 .4 Not Available [facility] (Lab) [address] [place], [address], 01/01/2024 18:00:37 01/01/20 24 01/01/2024 CBC/C OMPLE TE BLD COUNT W/DIF F neutrophils 72.7 % 39.0-7 2.0 high Not Available [facility] (Lab) [address] [place], [address], 01/01/2024 18:00:37 01/01/20 24 01/01/2024 CBC/C OMPLE TE BLD COUNT W/DIF F lymphocytes 19.1 % 16.0-4 7.0 Not Available [facility] [facility] (Lab) [address] [place], [address], 01/01/2024 18:00:37 01/01/20 24 01/01/2024 CBC/C OMPLE TE BLD COUNT W/DIF F monocytes 5.6 % 5.0-12 .0 Not Available [facility] (Lab) [address] [place], [address], 01/01/2024 18:00:37 01/01/20 24 01/01/2024 CBC/C OMPLE TE BLD COUNT W/DIF F eosinophils 1.7 % 1.0-7. 0 Not Available [facility] (Lab) [address] [place], [address], 01/01/2024 18:00:37 01/01/20 24 01/01/2024 CBC/C OMPLE TE BLD COUNT W/DIF F basophils 0.5 % 0.0-2. 0 Not Available [facility] (Lab) [address] [place], [address], 01/01/2024 18:00:37 01/01/20 24 01/01/2024 CBC/C OMPLE TE BLD COUNT W/DIF F immature granulocytes 0.4 % 0.00-0 .50 Not Available [facility] (Lab) [address] [place], [address], 01/01/2024 18:00:37 01/01/20 24 01/01/2024 CBC/C OMPLE TE BLD COUNT W/DIF F neutrophils, absolute count 7.37 x10'3 /uL 1.5-8. 0 Not Available [facility] (Lab) [address] [place], [address], 01/01/2024 18:00:37 01/01/20 24 01/01/2024 CBC/C OMPLE TE BLD COUNT W/DIF F lymphocytes, absolute count 1.94 x10'3 /uL 1.07-3 .43 Not Available [facility] (Lab) [address] [place], [address], 01/01/2024 18:00:37 01/01/20 24 01/01/2024 CBC/C OMPLE TE BLD COUNT W/DIF F monocytes, absolute count 0.57 x10'3 /uL 0.29-0 .99 Not Available [facility] (Lab) [address] [place], [address], 01/01/2024 18:00:37 01/01/20 24 01/01/2024 CBC/C OMPLE TE BLD COUNT W/DIF F eosinophils, absolute count 0.17 x10'3 /uL 0.02-0 .53 Not Available [facility] (Lab) [address] [place], [address], 01/01/2024 18:00:37 01/01/20 24 01/01/2024 CBC/C OMPLE TE BLD COUNT W/DIF F basophils, absolute count 0.05 x10'3 /uL 0.01-0 .08 Not Available [facility] (Lab) [address] [place], [address], 01/01/2024 18:00:37 01/01/20 24 01/01/2024 CBC/C OMPLE TE BLD COUNT W/DIF F immature granulocytes ,absolute 0.04 x10'3 /uL 0.00-0 .05 Not Available [facility] (Lab) [address] [place], [address], 01/01/2024 18:00:37 01/01/20 24 01/01/2024 CBC/C OMPLE TE BLD COUNT W/DIF F nucleated red blood cells 0.0 % -0 Not Available [facility] (Lab) [address] [place], [address], 01/01/2024 18:00:37 01/01/20 24 01/01/2024 CBC/C OMPLE TE BLD COUNT W/DIF F NRBC# 0.00 x10'3 /uL Not Available [facility] (Lab) [address] [place], [address], 01/01/2024 18:00:37 01/01/20 24 01/01/2024 MICRO ALBUM IN RANDO M URINE microalbumin , urine 9.5 mg/L 0.0-16 .6 Not Available [facility] (Lab) [address] [place], [address], 01/01/2024 18:56:54 01/01/20 24 01/01/2024 COMPR EHENS THEA METAB OLIC PANEL sodium 137 mmol/ L 137-14 5 Not Available [facility] (Lab) [address] [place], [address], 01/01/2024 18:58:57 01/01/20 24 01/01/2024 COMPR EHENS THEA METAB OLIC PANEL potassium 4.3 mmol/ L 3.5-5. 1 Not Available [facility] (Lab) [address] [place], [address], 01/01/2024 18:58:57 01/01/20 24 01/01/2024 COMPR EHENS THEA METAB OLIC PANEL chloride 101 mmol/ L 98-107 Not Available [facility] (Lab) [address] [place], [address], 01/01/2024 18:58:57 01/01/20 24 01/01/2024 COMPR EHENS THEA METAB OLIC PANEL carbon dioxide 30 mmol/ L 22-30 Not Available [facility] (Lab) [address] [place], [address], 01/01/2024 18:58:57 01/01/20 24 01/01/2024 COMPR EHENS THEA METAB OLIC PANEL anion gap 10.3 mmol/ L 14-22 low Not Available [facility] (Lab) [address] [place], [address], 01/01/2024 18:58:57 01/01/20 24 01/01/2024 COMPR EHENS THEA METAB OLIC PANEL glucose 101 mg/dL 70-99 high Not Available [facility] (Lab) [address] [place], [address], 01/01/2024 18:58:57 01/01/20 24 01/01/2024 COMPR EHENS THEA METAB OLIC PANEL BUN 14 mg/dL 8-19 Not Available [facility] (Lab) [address] [place], [address], 01/01/2024 18:58:57 01/01/20 24 01/01/2024 COMPR EHENS THEA METAB OLIC PANEL creatinine 0.81 mg/dL 0.66-1 .25 Not Available [facility] (Lab) [address] [place], [address], 01/01/2024 18:58:57 01/01/20 24 01/01/2024 COMPR EHENS THEA METAB OLIC PANEL GFR >60 Refer ence Range : [place] [facility] GFR Healt hy Adult : >60 mL/mi n/1.7 3 m2 Chron ic Kidne y Disea se: 15-60 mL/mi n/1.7 3 m2 Kidne y Failu re: <15/m L/min /1.73 m2 www.n iddk. nih.g ov The MDRD study equat ion has not been valid ated in child joanne <18 years of age; pregn ant women ; the elder ly >85 years of age; or in some racia l or ethni c subgr oups, such as Hispa nics. Outsi de the valid ated alejandro eters , estim ated GFR is less accur ate, requi ring clini carlyle judgm ent on a case- by-ca se basis . Clini carlyle inter preta tion for other races and ages must be made by the clini etelvina. The MDRD study equat ion has not been valid ated for the evalu ation of serum creat inine relat ed to nutri drew l statu s or medic ation usage . For perso ns <18 years of age, a pedia tric GFR calcu lator is avail able on the [facility] websi te: https ://erik yarbrough.rebel rg/pr ofess ional s/kdo qi/gf r_cal culat or Not Available [facility] (Lab) [address] [place], [address], 01/01/2024 18:58:57 01/01/20 24 01/01/2024 COMPR EHENS THEA METAB OLIC PANEL alkaline phosphatase 98 U/L 38-126 Not Available [facility] (Lab) [address] [place], [address], 01/01/2024 18:58:57 01/01/20 24 01/01/2024 COMPR EHENS THEA METAB OLIC PANEL alanine aminotransfe rase 17 U/L 0-50 Not Available [facility] (Lab) [address] [place], [address], 01/01/2024 18:58:57 01/01/20 24 01/01/2024 COMPR EHENS THEA METAB OLIC PANEL aspartate aminotransfe rase 29 U/L 15-46 Not Available [facility] (Lab) [address] [place], [address], 01/01/2024 18:58:57 01/01/20 24 01/01/2024 COMPR EHENS THEA METAB OLIC PANEL bilirubin, total 0.70 mg/dL 0.20-1 .30 Not Available [facility] (Lab) [address] [place], [address], 01/01/2024 18:58:57 01/01/20 24 01/01/2024 COMPR EHENS THEA METAB OLIC PANEL calcium 9.3 mg/dL 8.4-10 .2 Not Available [facility] (Lab) [address] [place], [address], 01/01/2024 18:58:57 01/01/20 24 01/01/2024 COMPR EHENS THEA METAB OLIC PANEL total protein 7.1 g/dL 6.3-8. 2 Not Available [facility] (Lab) [address] [place], [address], 01/01/2024 18:58:57 01/01/20 24 01/01/2024 COMPR EHENS THEA METAB OLIC PANEL albumin 4.3 g/dL 3.0-4. 4 Not Available [facility] (Lab) [address] [place], [address], 01/01/2024 18:58:57 01/01/20 24 01/01/2024 COMPR EHENS THEA METAB OLIC PANEL globulin 2.8 g/dL 2.6-4. 2 Not Available [facility] (Lab) [address] [place], [address], 01/01/2024 18:58:57 01/01/20 24 01/01/2024 COMPR EHENS THEA METAB OLIC PANEL A/G ratio 1.5 ratio 1.0-2. 0 Not Available [facility] (Lab) [address] [place], [address], 01/01/2024 18:58:57 01/01/20 24 01/01/2024 LIPID PANEL cholesterol 125 mg/dL 140-19 9 low [facility] NSUS RECOM MENDA TION FOR KALEB STERO L: ADULT CHILD LOW RISK: <200 <170 BORDE RLINE : <200- 239 ----- HIGH RISK: >240 >200 Not Available [facility] (Lab) [address] [place], [address], 01/01/2024 18:58:58 01/01/20 24 01/01/2024 LIPID PANEL triglyceride s 85 mg/dL 0-150 [facility] NS[facility] REPOR T RECOM MENDA TION FOR TRIGL YCERI KEZIA: ADULT CHILD LOW RISK: <150 ----- BODER LINE: 150-1 99 ----- HIGH RISK: >200 ----- Not Available [facility] (Lab) [address] [place], [address], 01/01/2024 18:58:58 01/01/20 24 01/01/2024 LIPID PANEL HDL cholesterol 37 mg/dL 40- low Not Available [facility] (Lab) [address] [place], [address], 01/01/2024 18:58:58 01/01/20 24 01/01/2024 LIPID PANEL LDL cholesterol, calculated 71 mg/dL 0-130 [facility] NS[facility] REPOR T RECOM MENDA TIONS FOR LDL: ADULT CHILD LOW RISK <130 <110 (OPTI MAL LDL) <100 ----- BORDE RLINE : 130-1 59 ----- HIGH RISK: >160 >130 A TRIGL YCERI DE RESUL T >400 INVAL IDATE S THE CALCU LATIO N FOR LDL FRACT IONAT ION - THE LDL RESUL T WILL NOT BE REPOR TRISH. Not Available [facility] (Lab) [address] [place], [address], 01/01/2024 18:58:58 01/01/20 24 01/01/2024 TSH W/REF ANN MARIE FT4 TSH with reflex free T4 0.415 uIU/m L 0.465- 4.680 low Not Available [facility] (Lab) [address] [place], [address], 01/01/2024 19:28:10 01/01/20 24 01/01/2024 HEMOG LOBIN A1C HA1C 6.0 % 4.0-6. 0 Diabe jonathan Scree navneet Crite nishant: <5.7% Consi stent with absen ce of diabe jonathan 5.7-6 .4% Consi stent with incre ased risk for diabe jonathan (pred iabet es) >OR=6 .5% Consi stent with diabe joanthan REFER ENCE: Diabe jonathan Care 2016, 39(Jason ppl.1 ):s13 -s22 Not Available [facility] (Lab) [address] [place], [address], 01/01/2024 20:51:17 01/01/20 24 01/01/2024 T4 FREE free T4 0.93 NG/dL 0.78-2 .19 Not Available [facility] (Lab) [address] [place], [address], 01/01/2024 22:39:26 05/26/20 24 05/26/2024 LIPID PANEL cholesterol 113 mg/dL 140-19 9 low [facility] NS[facility] RECOM MENDA TION FOR KALEB STERO L: ADULT CHILD LOW RISK: <200 <170 BORDE RLINE : <200- 239 ----- HIGH RISK: >240 >200 Not Available [facility] (Lab) [address] [place], [address], 05/26/2024 18:16:53 05/26/20 24 05/26/2024 LIPID PANEL triglyceride s 89 mg/dL 0-150 [facility] REPOR T RECOM MENDA TION FOR TRIGL YCERI KEZIA: ADULT CHILD LOW RISK: <150 ----- BODER LINE: 150-1 99 ----- HIGH RISK: >200 ----- Not Available [facility] (Lab) [address] [place], [address], 05/26/2024 18:16:53 05/26/20 24 05/26/2024 LIPID PANEL HDL cholesterol 40 mg/dL 40- Not Available [facility] (Lab) [address] [place], [address], 05/26/2024 18:16:53 05/26/20 24 05/26/2024 LIPID PANEL LDL cholesterol, calculated 55 mg/dL 0-130 [facility] REPOR T RECOM MENDA TIONS FOR LDL: ADULT CHILD LOW RISK <130 <110 (OPTI MAL LDL) <100 ----- RAIMUNDODE RLINE : 130-1 59 ----- HIGH RISK: >160 >130 A TRIGL YCERI DE RESUL T >400 INVAL IDATE S THE CALCU LATIO N FOR LDL FRACT IONAT ION - THE LDL RESUL T WILL NOT BE REPOR TRISH. Not Available [facility] (Lab) [address] [place], [address], 05/26/2024 18:16:53 05/26/2005/26/2024 HEMOG LOBIN A1C HA1C 6.0 % 4.0-6. 0 Diabe jonathan Scree navneet Crite nishant: <5.7% Consi stent with absen ce of diabe jnoathan 5.7-6 .4% Consi stent with incre ased risk for diabe jonathan (pred iabet es) >OR=6 .5% Consi stent with diabe jonathan REFER ENCE: Diabe jonathan Care 2016, 39(Jason ppl.1 ):s13 -s22 Not Available [facility] (Lab) [address] [place], [address], 05/26/2024 22:27:16 05/26/20 24 05/27/2024 PSA FREE + TOTAL (LC) prostate specific Ag, serum <0.1 NG/mL 0.0-4. 0 Laine ECLIA metho dolog y. . Accor ding to the Ameri can [employer] g[employer] iatio n, Serum PSA shoul d decre ase and remai n at undet ectab le level s after radic al prost atect samina. The AUA defin es bioch emica l recur rence as an initi al PSA value 0.2 ng/mL or great er follo wed by a subse quent confi rmato ry PSA value 0.2 ng/mL or great er. Value s obtai kasandra with diffe rent assay metho ds or kits canno t be used inter leyva eably . Resul ts canno t be inter prete d as absol margaret evide nce of the prese nce or absen ce of jessica zamora se. Not Available [facility] (Lab) [address] [place], [address], 05/27/2024 12:12:05 05/26/20 24 05/27/2024 PSA FREE + TOTAL (LC) PSA, free 0.45 NG/mL n/a Laine ECLIA metho dolog y. Not Available [facility] (Lab) [address] [place], [address], 05/27/2024 12:12:05 05/26/20 24 05/27/2024 PSA FREE + TOTAL (LC) % free PSA >450.0 % The table below lists the proba bilit y of prost ate cance r for men with non-s uspic ious JUANJOSE resul ts and total PSA betwe en 4 and 10 ng/mL , by patie nt age (Marcie hammond et al, WANDY 1998, 279:1 542). % Free PSA 50-64 yr 65-75 yr 0.00- 10.00 % 56% 55% 10.01 -15.0 0% 24% 35% 15.01 -20.0 0% 17% 23% 20.01 -25.0 0% 10% 20% >25.0 0% 5% 9% Pleas e note: Bekah braxton al did not make speci fic recom menda tions regar ding the use of perce nt free PSA for any other popul ation of men. Perfo rmed at: [facility] [address] [facility], [place] [address] Lab Direc tor: Enrique camacho PhD, Phone : [phone] Not Available [facility] (Lab) [address] [place], [address], 05/27/2024 12:12:05 11/03/19 25 09/18/2024 biops y, prost ate, needl e (PROC ) No observ ation record ed. BARCODE Not Available 2024 13:00:46 11/03/19 25 08/03/2024 MRI, pelvi s, w/wo contr ast No observ ation record ed. BARCODE Not Available 2024 13:00:47 Result Notes None recorded. Problems Name Problem SNOMED Code Status Onset Date Resolution Date Notes Provider Name and Address Organization Details Recorded Time Low back pain 002345841 Active 2022 Not Available [facility] 4 04:25:01 Generalize d anxiety disorder 00388341 Active 2022 Not Available [facility] 4 04:25:01 Essential hypertensi on 89176773 Active 2022 Not Available [facility] 4 04:25:01 Cigarette smoker 63988215 Active 2022 Not Available [facility] 4 04:25:01 Prostate specific antigen above reference range 386101973 Active 2022 Not Available [facility] 4 04:25:01 Type 2 diabetes mellitus without complicati on 303098857 Active 2022 Not Available [facility] 4 04:25:01 Infection of sebaceous cyst 649467104 Active 2022 Not Available [facility] 4 04:25:01 Chronic kidney disease 066505636 Active 2022 Not Available [facility] 4 04:25:01 Gastroesop hageal reflux disease without esophagiti s 701866124 Active 2022 Not Available [facility] 4 04:25:01 Pain of bilateral knee joints 8789752591749 04 Active 2022 Not Available [facility] 4 04:25:01 Skin lesion 54517076 Active 2022 Not Available [facility] 4 04:25:02 Urinary incontinen ce 013897287 Active 2022 Not Available [facility] 4 04:25:01 Plantar wart of right foot 5394350943229 9101 Active 2023 Not Available [facility] 4 04:25:01 Lesion of skin of foot 3827094812421 08 Active 2023 Not Available [facility] 4 04:25:00 Foot callus 740103531 Active 2023 Not Available [facility] 4 04:25:01 Onychomyco sis of toenails 602009735 Active 2023 Not Available [facility] 4 04:25:01 Hearing loss 73878561 Active 2023 Walter engel MD [address] [place] [address], [id number] , [employer] [facility] 4 12:09:11 Mixed anxiety and depressive disorder 741722152 Active 2024 Naima Merchant [facility] null, [facility] 5 15:09:28 Asthma-chr onic obstructiv e pulmonary disease overlap syndrome 6045516875077 9107 Active 2021 Not Available [facility] 4 04:25:00 Lumbar radiculopa thy 077908006 Active Not Available [facility] 4 04:25:01 Chronic hepatitis C 224789147 Active Not Available [facility] 4 04:25:01 Chronic obstructiv e pulmonary disease 84467388 Active 2017 Not Available [facility] 4 04:25:01 Body mass index 30+ - obesity 820659958 Active 2017 Not Available [facility] 4 04:25:01 Dry skin 51794654 Active 03/14/ 2022 Not Available [facility] 4 04:25:01 Anxiety disorder 311104898 Active Not Available [facility] 4 04:25:01 Pain 74488834 Active Not Available [facility] 4 04:25:01 Disease of liver 398892909 Active Not Available [facility] 4 04:25:01 Gallstone 805396313 Active Not Available [facility] 4 04:25:01 Osteoarthr itis of knee 586999977 Active Not Available [facility] 4 04:25:01 Proteinuri a 67243097 Active 2021 Not Available [facility] 4 04:25:01 Alpha-1-an titrypsin deficiency 73724048 Active 2021 Not Available [facility] 4 04:25:01 Current tear of medial cartilage AND/OR meniscus of knee Active Not Available [facility] 4 04:25:01 Current tear of lateral cartilage AND/OR meniscus of knee Active Not Available [facility] 4 04:25:01 Follow-up orthopedic assessment 733856232 Active Not Available [facility] 4 04:25:01 Depressive disorder 82316292 Active Not Available [facility] 4 04:25:01 Chondromal acia of patella 97128470 Active Not Available [facility] 4 04:25:01 Arthritis 3332132 Active Not Available [facility] 4 04:25:01 Hypertensi ve disorder 53125903 Active Not Available [facility] 4 04:25:01 Obesity 813824720 Active Not Available [facility] 4 04:25:01 Onychomyco sis 715586178 Active 2021 Not Available [facility] 4 04:25:01 Nicotine dependence 40698160 Active 2021 Not Available [facility] 4 04:25:01 Tinea pedis 0598197 Active 2021 Not Available [facility] 4 04:25:01 Dyspnea on exertion 29118975 Active 2021 Not Available [facility] 4 04:25:01 Verruca plantaris 05766337 Active 2021 Not Available [facility] 4 04:25:01 Derangemen t of knee 78592615 Active Not Available [facility] 4 04:25:01 Alcoholism 8493241 Active Not Available [facility] 4 04:25:01 Diabetes mellitus 89982599 Active 2008 Not Available [facility] 4 04:25:01 Hypersomni a 12554768 Active Not Available [facility] 4 04:25:01 Obstructiv e sleep apnea syndrome 08259068 Active Not Available [facility] 4 04:25:01 Chronic rhinitis 32630000 Active Not Available [facility] 4 04:25:02 Pain in limb 01644860 Active Not Available [facility] 4 04:25:02 Problem Notes None recorded. Procedures Surgical History Date Name Laterality Status Provider Name and Address Organization Details Recorded Time 01/02/20 24 Medicare Wellness CPT Code, subsequent completed Xiang Johnson LPN [facility] 01/02/2024 14:15:56 01/02/20 23 Medicare Wellness CPT Code, subsequent completed Janet Velazquez RN [facility] 01/01/2023 11:41:41 01/02/20 23 Advanced Care Planning completed Janet Velazquez RN [facility] 01/01/2023 11:43:20 05/11/20 18 Cystoscopy and treatment completed Not Available [facility] 11/21/2022 04:42:10 05/11/20 18 Fragmenting of kidney stone completed Not Available [facility] 11/21/2022 04:42:10 09/06/20 14 Knee arthroscopy/donnie farhad completed Not Available [facility] 11/21/2022 04:42:10 05/18/20 14 Knee arthroscopy/donnie farhad completed Not Available [facility] 11/21/2022 04:42:10 02/27/19 89 Remove bladder stone completed Not Available [facility] 11/21/2022 04:42:10 Knee Surgery completed Not Available [facility] 11/21/2022 04:42:10 Imaging Results Imaging Date Name Status LastModified by Organiz ation Details LastModified Time 09/18/2024 biopsy, prostate, needle (PROC) completed [facility] Information not available 11/03/2024 13:00:46 08/03/2024 MRI, pelvis, w/wo contrast completed [facility] Information not available 11/03/2024 13:00:47 Procedure Notes None recorded. Medical Equipment None Reported. Allergies No known drug allergies Medications Name Sig Start Date Stop Date Status Note LastModified by Organization Details LastModified Time safety lancets 28g misc active Not Available Not Available Not Available buspirone 5 mg tablet Take 1 tablet twice a day by oral route for 30 days. active Not Available Not Available No t Available metformin 500 mg tablet TAKE 1 TABLET TWICE DAILY active Not Available Not Available No t Available gabapenti n 600 mg tablet TAKE 1 TABLET BY MOUTH THREE TIMES DAILY active Not Available Not Available No t Available albuterol sulfate 2.5 mg/3 mL (0.083 %) solution for nebulizat ion USE 1 VIAL IN NEBULIZE R THREE TIMES DAILY DIRECTED active Not Available Not Available No t Available ammonium lactate 12 % lotion apply to both feet in the evening before bed- not in between toes 01/01 completed Not Available Not Available Not Available azithromy bull 250 mg tablet TAKE 2 TABLETS (500 MG) BY ORAL ROUTE ONCE DAILY FOR 1 DAY THEN 1 TABLET (250 MG) BY ORAL ROUTE ONCE DAILY FOR 4 DAYS active Not Available Not Available No t Available ibuprofen 800 mg tablet 08/31 completed Not Available Not Available Not Available cephalexi n 250 mg capsule Take 1 capsule every 6 hours by oral route for 7 days. 06/07 completed Not Available Not Available Not Available hydrocodo ne 5 mg-acetam inophen 325 mg tablet TK 1 T PO Q 4 H PRN 06/30 completed Not Available Not Available Not Available BuSpar 10 mg tablet daily 2012 active Not Available Not Available Not Avai lable lisinopri l 20 mg tablet Take 1 tablet every day by oral route for 90 days. active Not Available Not Available No t Available prednison e 20 mg tablet 03/13 completed Not Available Not Available Not Available prednison e 5 mg tablet 12/22 completed Not Available Not Available Not Available Accu-Chek Softclix Lancets USE TO CHECK GLUCOSE ONCE DAILY 04/18 completed Changed to fastclix Not Available Not Available Not Available tamsulosi n 0.4 mg capsule TAKE 1 CAPSULE BY MOUTH ONCE DAILY 2024 active Not Available Not Available Not Avai lable OneTouch Ultra Test strips use to test blood glucose once daily 2024 active Not Available Not Available Not Avai lable sulfaceta mide sodium 10 % eye drops 03/13 completed Not Available Not Available Not Available cephalexi n 500 mg capsule 3 x a day 12/22 completed Not Available Not Available Not Available nicotine 21 mg/24 hr daily transderm al patch Apply 1 patch every day by transder mal route as directed for 30 days. 10/12 completed Not Available Not Available Not Available gabapenti n 300 mg capsule TK 2 CS PO QHS FOR 3 DAYS THEN 1 BID FOR 3 DAYS THE 1 TID THEREAFT ER IF TOLERATI NG 03/13 completed Not Available Not Available Not Available hydrocodo ne 5 mg-acetam inophen 500 mg tablet Take 1 tablet twice a day by oral route. 2012 active Not Available Not Available Not Avai lable furosemid e 20 mg tablet TAKE 1 TABLET BY MOUTH ONCE DAILY active Not Available Not Available No t Available hydrocort isone butyrate 0.1 % topical cream 03/13 completed Not Available Not Available Not Available ergocalci ferol (vitamin D2) 1,250 mcg (50,000 unit) capsule TAKE 1 CAPSULE BY MOUTH ONCE A WEEK active Not Available Not Available No t Available lorazepam 1 mg tablet TK 1 T PO 2 HOURS BEFORE AND 1 T A DAY BEFORE 03/13 completed Not Available Not Available Not Available diazepam 10 mg tablet Take 1 tablet every day by oral route at bedtime. 03/13 completed Not Available Not Available Not Available ibuprofen 600 mg tablet Take 1 tablet 3 times a day by oral route as needed. 2012 active Not Available Not Available Not Avai lable albuterol sulfate HFA 90 mcg/actua tion aerosol inhaler INHALE TWO PUFFS BY MOUTH EVERY 4 TO 6 HOURS NEEDED active Not Available Not Available No t Available ketoconaz ole 2 % topical cream 01/01 completed Not Available Not Available Not Available lisinopri l 40 mg tablet TAKE 1 TABLET EVERY DAY 05/09 completed Not Available Not Available Not Available fluticaso ne propionat e 50 mcg/actua tion nasal spray,thanh pension USE 1 SPRAY(S) IN EACH NOSTRIL ONCE DAILY 10/12 completed Not Available Not Available Not Available sertralin e 50 mg tablet TAKE 1 TABLET EVERY DAY. NO ALCOHOL, DRIVING OR WITH SEDATING MEDICATI ONS. NOTIFY IF ANY CHANGE IN MOOD OR BEHAVIOR active Not Available Not Available No t Available calcitrio l 0.25 mcg capsule TAKE 1 CAPSULE BY MOUTH EVERY OTHER DAY active Not Available Not Available No t Available loratadin e 10 mg tablet TAKE 1 TABLET BY MOUTH ONCE DAILY NEEDED FOR 90 DAYS 10/12 completed Not Available Not Available Not Available spironola ctone 50 mg tablet TAKE 1 TABLET BY MOUTH ONCE DAILY 01/01 completed Not Available Not Available Not Available valsartan 160 mg tablet take one tablet twice a day 06/30 completed Not Available Not Available Not Available tadalafil 5 mg tablet TAKE 1 TABLET BY MOUTH ONCE DAILY active Not Available Not Available No t Available Ventolin HFA 12/22 completed Edson Ivy, next apt 01/09 Not Available Not Available Not Available sodium chloride 1,000 mg soluble tablet TAKE ONE TABLET BY MOUTH DAILY AT 9 AM active Not Available Not Available No t Available Nuvigil 150 mg tablet 03/13 completed Not Available Not Available Not Available GaviLyte- G 236 gram-22.7 4 gram-6.74 gram-5.86 gram oral solution 05/19 completed Not Available Not Available Not Available Safety Lancets 28 gauge TEST ONCE DAILY active Not Available Not Available No t Available Spiriva Respimat 2.5 mcg/actua tion solution for inhalatio n Inhale 2 puffs every day by inhalati on route as directed for 30 days. 10/03 completed Not Available Not Available Not Available Incruse Ellipta 62.5 mcg/actua tion powder for inhalatio n Inhale 1 puff every day by inhalati on route. 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 2024 active Not Available Not Available Not Linnea suero OneTouch Ultra2 Meter USE DIRECTED TO CHECK BLOOD SUGARS ONCE DAILY active Not Available Not Available No t Available OneTouch Delica Plus Lancet 33 gauge USE 1 TO CHECK GLUCOSE ONCE DAILY active Not Available Not Available No t Available Breztri Aerospher e 160 mcg-9mcg- 4.8mcg/ac tuation HFA aerosol inhaler Inhale 2 puffs twice a day by inhalati on route for 90 days. 2024 active Not Available Not Available Not Linnea suero BinaxNOW COVID-19 Ag Self Test kit TEST DIRECTED TODAY 05/09 completed Not Available Not Available Not Available Mounjaro 5 mg/0.5 mL subcutane ous pen injector Inject 0.5 mL every week by subcutan eous route. 2024 active Not Available Not Available Not Linnea suero Mounjaro 2.5 mg/0.5 mL subcutane ous pen injector INJECT 1 PEN ONCE A WEEK 12/02 completed new dose Not Available Not Available Not Available Vitals Date Recorded Body height Body mass index (BMI) Body weight Body temperature Heart rate Systolic blood pressure Diastolic blood pressure Provider Name and Address Organization Details Last Updated DateTime 4 177.8 cm 26.5 kg/m2 14187.7 9 g 97.2 [degF] 100 /min 128 mm[Hg] 66 mm[Hg] SAHIL Oneil [facility] [employer] 4 15:18:26 Date Recorded Body height Body mass index (BMI) Body weight Body temperature Heart rate Systolic blood pressure Diastolic blood pressure Provider Name and Address Organization Details Last Updated DateTime 4 177.8 cm 37.3 kg/m2 276404. 02 g 97.6 [degF] 78 /min 124 mm[Hg] 66 mm[Hg] SAHIL Oneil [facility] [employer] 4 12:27:13 Date Recorded Pain severity - 0-10 verbal numeric rating [Score] - Reported Provider Name and Address Organization Details Last Updated DateTime 01/02/2024 7 Xiang Johnson LPN [facility] I L [facility] 01/02/2024 14:16:50 Date Recorded Body height Body mass index (BMI) Body weight Body temperature Heart rate Systolic blood pressure Diastolic blood pressure Provider Name and Address Organization Details Last Updated DateTime 4 177.8 cm 36.3 kg/m2 988470. 87 g 97.6 [degF] 78 /min 122 mm[Hg] 62 mm[Hg] SAHIL Oneil [facility] [employer] 4 11:40:29 Date Recorded Body height Body mass index (BMI) Body weight Body temperature Heart rate Oxygen saturation Oxygen saturation in Arterial blood by Pulse oximetry Systolic blood pressure Diastolic blood pressure Provider Name and Address Organization Details Last Updated DateTime 4 177.8 cm 35.7 kg/m2 412451. 5 g 98.1 [degF] 80 /min 94 % 94 % 126 mm[Hg] 62 mm[Hg] Mary Downs MA [facility] [employer] 4 12:33:09 Date Recorded Body height Body mass index (BMI) Body weight Body temperature Heart rate Oxygen saturation Oxygen saturation in Arterial blood by Pulse oximetry Pain severity - 0-10 verbal numeric rating [Score] - Reported Systolic blood pressure Diastolic blood pressure Provider Name and Address Organization Details Last Updated DateTime 5 177.8 cm 40.3 kg/m2 131810. 46 g 97.7 [degF] 85 /min 96 % 96 % 2 124 mm[Hg] 62 mm[Hg] Batool Stauffer MA [facility] [employer] 5 12:06:12 Social History Question Answer Notes LastModified by Organization Details LastModified Time Tobacco Smoking Status Current Every Day Smoker Not Available [employer] 11/21/2022 04:41:35 Do You Have An Advance Directive? No Papers Given Previously [email or web address] Information not available 01/02/2024 What Is Your Level Of Alcohol Consumption? None Former Alcoholic MIGRATION.0301 [id number] Information not available 11/21/2022 Do You Wear A Helmet When Biking? No [email or web address] Information not available 01/02/2024 What Is Your Level Of Caffeine Consumption? Occasional 0-1 Day. No OTC Stimulants MIGRATION.030 [id number] Information not available 11/21/2022 How Much Tobacco Do You Chew? None MIGRATION.030 613965 Information not available 11/21/2022 In The 14 Days Before Symptom Onset, Have You Had Close Contact With A Laboratory-conf irmed COVID-19 While That Case Was Ill? No MIGRATION.030 [id number] Information not available 11/21/2022 In The 14 Days Before Symptom Onset, Have You Had Close Contact With A Person Who Is Under Investigation For COVID-19 While That Person Was Ill? No MIGRATION.030 835986 Information not available 11/21/2022 Are You Currently Employed? No [email or web address] Information not available 01/02/2024 What Type Of Diet Are You Following? REGULAR MIGRATION.030 [id number] Information not available 11/21/2022 Which Illicit Or Recreational Drugs Have You Used? None MIGRATION.030 023168 Information not available 11/21/2022 Do You Or Have You Ever Used E-cigarettes Or Vape? Never Used Electronic Cigarettes MIGRATION.030 319012 Information not available 11/21/2022 What Is The Highest Grade Or Level Of School You Have Completed Or The Highest Degree You Have Received? [id number] MIGRATION.030 257212 Information not available 11/21/2022 Do You Have An Electrostatic Air Filter? Yes MIGRATION.030 174504 Information not available 11/21/2022 What Is Your Occupation? Disabled MIGRATION.030 918759 Information not available 11/21/2022 Have There Been Any Changes To Your Family Or Social Situation? Yes MIGRATION.030 938981 Information not available 11/21/2022 What Is The Fluoride Status Of Your Home? Fluoridated MIGRATION.030 131176 Information not available 11/21/2022 Are There Any Guns Present In Your Home? Yes MIGRATION.0301 477640 Information not available 11/21/2022 Do You Have A Humidifier? Yes MIGRATION.0301 970802 Information not available 11/21/2022 Do You Use Insect Repellent Routinely? No MIGRATION.0301 111120 Information not available 11/21/2022 Where Do You Live? SingleLevelHouse MIGRATION.030 683155 Information not available 11/21/2022 Guns Present In The Home? Yes Information not available 01/02/2024 Are You Able To Care For Yourself? Yes [email or web address] Information not available 01/02/2024 Are You Blind Or Do Yo Have Difficulty Seeing? No Information not available 01/02/2024 Are You Deaf Or Do You Have Serious Difficulty Hearing? No [email or web address] Information not available 01/02/2024 Live Alone Of With Others? With Others [email or web address] Information not available 01/02/2024 Do You Have A Medical Power Of Pickle Water Pump Operator? No MIGRATION.0301 189975 Information not available 11/21/2022 Do You Have Moisture Problems In Your Home? No MIGRATION.0301 053624 Information not available 11/21/2022 What Was The Date Of Your Most Recent Tobacco Screening? 11/03/2024 Information not available 11/03/2024 How Many Children Do You Have? 1 MIGRATION.0301 111763 Information not available 11/21/2022 What Is Your Current Pack Years? [email or web address] MIGRATION.0301 880007 Information not available 11/21/2022 Do You Have Any Pets? No [email or web address] Information not available 01/02/2024 What Is Your Relationship Status? MIGRATION.0301 801297 Information not available 11/21/2022 Do You Use Your Seat Belt Or Car Seat Routinely? Yes MIGRATION.0301 765213 Information not available 11/21/2022 Do You Have Smoke And Carbon Monoxide Detectors In Your Home? Yes MIGRATION.0301 406084 Information not available 11/21/2022 At What Age Did You Start Smoking Tobacco? 16 MIGRATION.0301 381296 Information not available 11/21/2022 Are You Passively Exposed To Smoke? Yes MIGRATION.0301 783801 Information not available 11/21/2022 Do You Or Have You Ever Used Smokeless Tobacco? Never Used Smokeless Tobacco MIGRATION.0301 187917 Information not available 11/21/2022 Are There Any Smokers In Your House? Yes MIGRATION.0301 914101 Information not available 11/21/2022 How Much Tobacco Do You Smoke? 1 PPD Information not available 11/03/2024 What Types Of Sporting Activities Do You Participate In? None MIGRATION.0301 851519 Information not available 11/21/2022 Do You Feel Stressed (tense, Restless, Nervous, Or Anxious, Or Unable To Sleep At Night)? [id number] MIGRATION.0301 256497 Information not available 11/21/2022 Do You Use Any Illicit Or Recreational Drugs? No MIGRATION.0301 480804 Information not available 11/21/2022 Do You Use Sunscreen Routinely? No Information not available 01/02/2024 Has Tobacco Cessation Counseling Been Provided? No MIGRATION.0301 093163 Information not available 11/21/2022 How Many Years Have You Smoked Tobacco? 48 [email or web address] Information not available 11/04/2024 Have You Recently Traveled Abroad? No MIGRATION.0301 773486 Information not available 11/21/2022 Do You Have Any Dietary Restrictions? No MIGRATION.0301 208783 Information not available 11/21/2022 Do You Or Have You Ever Used Any Other Forms Of Tobacco Or Nicotine? No MIGRATION.0301 933542 Information not available 11/21/2022 Sex: Male Functional Status Question Answer Note LastModified by Organizat ion Details LastModified Time What is your exercise level? None MIGRATION.[id number] Information not available 11/21/2022 Mental Status None recorded. Family History Relationship Description Onset Age of this Age Resolved Age Notes LastModified by Organization Details LastModified Time Unspecified Relation Hypertensive disorder [facility] MIGRATION.941 [id number] Not available 11/21/2022 04:42:16 Unspecified Relation Family history of ischemic heart disease MIGRATION.979 [id number] Not available 11/21/2022 04:42:16 Unspecified Relation Family history of chronic obstructive lung disease MIGRATION.252 0326004 Not available 11/21/2022 04:42:16 Unspecified Relation Family history of Depression MIGRATION.969 [id number] Not available 11/21/2022 04:42:16 Unspecified Relation Family history of Crohn's disease MIGRATION.909 [id number] Not available 11/21/2022 04:42:16 Mother Diabetes mellitus [facility] MIGRATION.570 [id number] Not available 11/21/2022 04:42:16 Brother Sleep apnea MIGRATION.03 0 [id number] Not available 11/21/2022 04:42:16 Notes:heart disease, COPD,de pression, krohns disease, RLS,sleep apnea (Brother) Medical History Condition Response BLINDNESS N NERVE DISEASE Y RHEUMATIC FEVER N BLADDER PROBLEMS N KIDNEY STONES N MRSA N OTHER # 1 N POLIO N LUNG DISEASE/DISORDER N RADIATION / CHEMOTHERAPY N COPD Y Other # 2 N BLOOD DISEASES N EAR OR HEARING PROBLEMS N MUMPS N DEPRESSION (INCLUDING POST ) Y BOWEL PROBLEMS N STROKE/TIA N ULCERS N BENIGN PROSTATIC HYPERPLASIA N MEASLES N MYOCARDIAL INFARCTION N OBESITY Y GERD/NAUSEA N ANEURYSM N URINARY/BLADDER/KIDNEY PROBLEMS Y CORONARY ARTERY DISEASE (CAD) N ADDICTION CONCERNS N ENDOMETRIOSIS N Impotence N USE OF BLOOD THINNERS N SKIN PROBLEMS N GASTROINTESTINAL DISORDER N PERIPHERAL VASCULAR DISEASE N MUSCLE,JOINT OR BONE PROBLEMS N GASTROINTESTINAL BLEEDING N BLOOD CLOTS N ASTHMA N CATARACTS N ERECTILE DYSFUNCTION N VARICOSITIES N GI PROBLEMS N Low Testosterone N INFERTILITY N AIDS/HIV N CHEMOTHERAPY / RADIATION N LIVER DISEASE N MALE HYPOGONADISM N HYPERTENSION Y Deficiency N TOURETTE'S N ANXIETY DISORDER Y BLOOD TRANSFUSION N ANEMIA/BLOOD DISORDER N CHRONIC EAR INFECTIONS N BRONCHITIS N TUBERCULOSIS N GLAUCOMA N FOOT PROBLEM N DIVERTICULITIS N SLEEP APNEA Y CHICKENPOX N INFECTIOUS DISEASE N HEART ARRHYTHMIA N PROSTATE N INSOMNIA N HIGH CHOLESTEROL / HYPERLIPIDEMIA N HYPERTHYROIDISM N EYE PROBLEMS N EDEMA N CHRONIC PAIN SYNDROME N HYPOTHYROIDISM N CAROTID BLOCKAGE N CONSTIPATION N BACK / NECK PROBLEMS Y ATHEROSCLEROSIS N BREAST PROBLEMS N DIALYSIS N ECZEMA N OSTEOPOROSIS N ARTHRITIS Y APPENDICITIS N DIABETES, TYPE Y BAD TEETH N ENT N HEARTBURN / REFLUX N AUTISM SPECTRUM DISORDER (ASD) N HEPATITIS / LIVER DISEASE Y GOUT N SLEEP DISORDER N ALZHEIMER'S DISEASE N Brain Problems N HERPES N DEMENTIA N HEADACHES/MIGRAINES N SEIZURES/EPILEPSY N VASCULAR DISEASE N PACEMAKER N Blood Disorder N DIZZINESS N HEART DISEASE/HEART PROBLEMS N KIDNEY DISEASE Y MULTIPLE SCLEROSIS N CARDIAC ARRHYTHMIA N CANCER: SPECIFY N ATRIAL FIBRILLATION N Gall Stones Y PULMONARY EMBOLISM N AUTOIMMUNE DISEASE N Immunizations Vaccine Type Date Status Note Provider Nam e and Address Organization Details Recorded Time COVID-19, mRNA, LNP-S, PF, 100 mcg/0.5mL dose or 50 mcg/0.25mL dose 2 completed Not Available [facility] 10/05/2023 04:25:02 COVID-19, mRNA, LNP-S, PF, 100 mcg/0.5mL dose or 50 mcg/0.25mL dose 1 completed Not Available [facility] 10/05/2023 04:25:02 COVID-19, mRNA, LNP-S, PF, 100 mcg/0.5mL dose or 50 mcg/0.25mL dose 1 completed Not Available [facility] 10/05/2023 04:25:02 Influenza, split virus, quadrivalent, preservative 8 completed Not Available [facility] 10/05/2023 04:25:02 Influenza, split virus, trivalent, preservative 1 completed Not Available [facility] 10/05/2023 04:25:02 Influenza, split virus, quadrivalent, PF 2 completed Not Available [facility] 10/05/2023 04:25:02 Influenza, split virus, quadrivalent, PF 0 completed Not Available [facility] 10/05/2023 04:25:02 Influenza, split virus, quadrivalent, PF 8 completed Not Available [facility] 10/05/2023 04:25:02 Influenza, split virus, quadrivalent, PF 3 completed Walter Gonzalez MD [address], [place], [address], [employer] 08/29/2023 15:26:27 Influenza, split virus, trivalent, PF 4 completed Walter Gonzalez MD [address], [place], [address], [employer] 08/06/2024 14:18:32 Past Encounters Encounter ID Performer Location Encounter Start Date Encounter Closed Date Diagnosis/Indication Diagnosis SNOMED-CT Code Diagnosis ICD10 Code Diagnosis Note [id number] [facility] [address] [place] [address] 02/07/2021 00:00:00 02/07/2021 12:08:25 [id number] [facility] [place] [address] [place] [address] 04/12/2021 00:00:00 04/12/2021 14:07:21 [id number] [facility] [place] [address] [place] [address] 06/08/2021 00:00:00 06/22/2021 14:10:56 [id number] [facility] [address] [place] [address] 09/21/2021 00:00:00 09/21/2021 17:34:45 [id number] [facility] [place] [address] [place] [address] 10/12/2021 00:00:00 11/14/2021 12:10:29 [id number] [facility] [place] [address] [place] [address] 10/13/2021 00:00:00 10/13/2021 13:16:14 [id number] [facility] [place] [address] [place] [address] 11/24/2021 00:00:00 11/24/2021 12:11:48 [id number] [facility] [place] [address] [place] [address] 12/04/2021 00:00:00 12/04/2021 15:51:55 [id number] [facility] [place] [address] [place] [address] 12/25/2021 00:00:00 12/26/2021 12:06:31 [id number] [facility] Internal Med [facility] [address] [place] [address] 03/01/2022 00:00:00 03/01/2022 15:14:24 [id number] [facility] General [facility] [address] [place] [address] 03/13/2022 00:00:00 03/13/2022 13:46:02 [id number] [facility] [place] [address] [place] [address] 08/30/2022 00:00:00 08/30/2022 11:43:29 [id number] [facility] General Surgery [address] [facility] [place] [address] 09/11/2022 00:00:00 09/11/2022 13:47:37 [id number] [facility] General Surgery [address] [address] 10/02/2022 00:00:00 10/02/2022 13:32:26 [id number] [facility] General Surgery [address] [address] 10/09/2022 00:00:00 10/09/2022 13:15:34 [id number] [facility] Pul[facility] [address] [place] [address] 10/24/2022 00:00:00 10/24/2022 13:52:19 [id number] Walter engel MD [facility] Internal [facility] [address] [facility] [address] [place] [address] 01/01/2023 11:11:41 01/01/2023 11:50:14 Screening - NAD 157024490 Z13.9 C-scope: DId get this with Dr Weinberg and next in 5 years 05/08/18 Get yearly flu shotUTD tdapUTD on COVID 19 vaccineCan do shingrix RTC in 4 monthsDo labsER if worseHe did verbalize his understand ing of the above Low back pain 796627962 M54.50 On gabapentin 600mg tidDoes well on thisDoes not see pain management Li parker anxiety disorder 74453644 F41.1 On the sertraline 50mg daily, does well on this dose, renewed 06/08/2021 Not on buspirone 5mg po bid, as he is anxious more as he found out that his GF cheated on him Not suicidal or homicidalD eclines any referral to psychiatry Chronic ob structive pulmonary disease 04775761 J44.9 On ventDanish Carbajal HHN 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 S/p PFT 05/26/2021 S/p LDCT 05/08/2021 S/p LDCT 06/25/2022 Chronic hepatitis C [address] Bingham 06/30/18 Treated with [facility] 02/08/2020 : Dr Frazier, f/u in 3 months, started on lasix and aldactone and needs to do EGD 07/26/2020 : Dr Burke Cherryca: EGD: F/u EGD in 2-3 years and f/u with liver clinic On spironolac tone 50mg daily given by Dr Efren Nina GI Dr Frazier last OV 01/22/2022 , is to get another Essential hypertension 14812366 I10 On lisinopril 40mg daily Does wellGet labsNeeds to see Dr Jeffries, last OV 07/12/2021 , f/u in one year Cigarette smoker 3719143 7 F17.210 2-3 PPD for 20 yearsNow 1PPDGet LDCTStates that the welbutrin or the chantix did not work Advised to quit, can do nicotine gum and patchLDCT: 03/21/18: Neg OV 12/22/18:G et LDCT again OV 04/27/19:L DCT 04/15/19: NotedIs to see Dr Bingham and Dr Jeffries OV 08/31/19:S ees Edson Dyerdv ised to use his CPAP OV 12/22/2019 :Keep apt with Edson Ivy NPUses his CPAP OV 06/07/2020 :Now smokes 1-2 cigarettes per day, advised to quit!Get LDCT doneSeyordan Coyne and use CPAP OV 10/05/2020 :Uses CPAPSees pulmonary Edson Ivy 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/07/2021 :Advised to quit smokingNee ds to see Edson leal LDCT done OV 06/08/2021 :Now sees Edson Han NPLDCT 05/08/2021 : next in one year OV 10/12/2021 :Keep apt with Edson Han 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/01/2022 :Edson Han NP 11/24/2021 , next 05/28/2022 OV 08/30/2022 :See pulmonary OV 01/01/2023 Edson Han next apt 04/24/2023 Obstructiv e sleep apnea syndrome 41584063 G47.33 On CPAP See pulmonary Prostate s pecific antigen above reference range 482121327 R97.[address] Brewer a referral Type 2 yaya betes mellitus without complication 177780712 E11.9 On metformin 500mg bid Does wellGet labsNeeds to see eyeDr Ramalexandreaher 12/25/2021 , next 07/02/2022 Pain of bi lateral knee joints 3473881302 [address] Marquis 02/13/2022 , s/p knee injections , need to lose weight to get surgery Chronic ki dney disease 178687058 N18.9 S/p US abd 02/02/2022 , Dr Kayode TORREZ Gastroesop hageal reflux disease without esophagitis 883315268 K21.9 LDCT 06/25/2022 , thickened mucosa, told to contact PCP, by Edson Han Will refer EGD Proteinuria 32788623 R80 .[address] Kayode TORREZ Skin lesion 62994955 L98 .9 S/p removal Dr Nguyen 10/09/2022 Adult heal th examination 967091624 Z00.00 Screening for disorder 005678646 Z13.9 [id number] Edson Han, [facility] Pulmonolo gy [place] [address] [place] [address] 04/24/2023 10:45:59 04/24/2023 11:43:39 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 He is aware to get his children and siblings testedChec k alpha 1 level Nicotine dependence 5629 4008 Z87.891 Smoking cessation counseling and techniques reviewed at length. L iterature reviewed.A void triggers, support groups.Dis traction techniques Greater than 3 but less than 10 minutes spent discussing cessation. Declines NRT.Discus sed Rx options if needed in the future.LDC T due 06/2023 - ordered today Asthma-chr onic obstructive pulmonary disease overlap syndrome [id number] 1587888 J44.9 CAT 10PFT completed 05/26/21 (in chart) with mild obstructio n and good bronchodil ator response.C ontinue Trelegy Ellipta 100 one puff dailyHe is aware to rinse and spit after use.Contin ue Albuterol PRN - discussed indication s for useDiscuss ed reportable signs and symptomsOr emily for nebulizer today for PRN useRTC in 3-4 months, PRN for concerns Obstructiv e sleep apnea syndrome 18110594 G47.33 Home study 02/2019 with AHI 13.5Machin e set up 06/26/18Do wnload today with 60% total use in the last 30 days.He is on CPAP 8 cm H2OHis AHI is 4.9 [id number] Walter engel MD [facility] [address], [place] [address] 05/09/2023 11:57:12 05/09/2023 13:58:54 Screening - NAD 946820798 Z13.9 C-scope: DId get this with Dr Weinberg and next in 5 years 05/08/18 Get yearly flu shotUTD tdapUTD on COVID 19 vaccineCan do shingrix RTC in 4 monthsDo labsER if worseHe did verbalize his understand ing of the above Low back pain 576913241 M54.50 On gabapentin 600mg tidDoes well on thisDoes not see pain management Li parker anxiety disorder 06080496 F41.1 On the sertraline 50mg daily, does well on this doseNot on buspirone 5mg po bid, as he is anxious more as he found out that his GF cheated on him Not suicidal or homicidalD eclines any referral to psychiatry Chronic ob structive pulmonary disease 94799929 J44.9 On ventolinOn lauralegyOn HHN 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 S/p PFT 05/26/2021 S/p LDCT 05/08/2021 S/p LDCT 06/25/2022 Addendum: 08/19/2023 :LDCT 08/07/2023 : Edson Ivy NP Chronic hepatitis C [address] Bingham 06/30/18 Treated with [place] 02/08/2020 : Dr Frazier, f/u in 3 months, started on lasix and aldactone and needs to do EGD 07/26/2020 : Dr Burke Myers: EGD: F/u EGD in 2-3 years and f/u with liver clinic On spironolac tone 50mg daily given by Dr Efren Nina GI Dr Frazier last OV 01/22/2022 , is to get another [place] Essential hypertension 07515800 I10 On lisinopril 40mg daily Does wellGet labsNeeds to see Dr Jeffries, last OV 07/12/2021 , f/u in one year Cigarette smoker 7833544 7 F17.210 2-3 PPD for 20 yearsNow 1PPDGet LDCTStates that the welbutrin or the chantix did not work Advised to quit, can do nicotine gum and patchLDCT: 03/21/18: Neg OV 12/22/18:G et LDCT again OV 04/27/19:L DCT 04/15/19: NotedIs to see Dr Bingham and Dr Jeffries OV 08/31/19:S ees Edson Dyerdv ised to use his CPAP OV 12/22/2019 :Keep apt with Edson Ivy NPUses his CPAP OV 06/07/2020 :Now smokes 1-2 cigarettes per day, advised to quit!Get LDCT doneSeyordan Coyne and use CPAP OV 10/05/2020 :Uses CPAPSees pulmonary Edson Ivy 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/07/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 :Advised to quit smokingNee ds to see Edson leal LDCT done OV 06/08/2021 :Now sees Edson Han NPLDCT 05/08/2021 : next in one year OV 10/12/2021 :Keep apt with Edson Han 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/01/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 :Edson Han 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 11/24/2021 , next 05/28/2022 OV 08/30/2022 :See pulmonary OV 01/01/2023 Edson Han next apt 04/24/2023 OV 05/09/2023 : Sees Edson Han 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 Obstructiv e sleep apnea syndrome 53038393 G47.33 On CPAP See pulmonary Prostate s pecific antigen above reference range 212360204 R97.[address] Brewer a referral Type 2 yaya betes mellitus without complication 760032654 E11.9 On metformin 500mg bid Does wellGet labsNeeds to see eyeDr Lynsey 12/25/2021 , next 07/02/2022 Pain of bi lateral knee joints 5110425331 [address] Marquis 02/13/2022 , s/p knee injections , need to lose weight to get surgery Chronic ki dney disease 584810959 N18.9 S/p US abd 02/02/2022 , Dr Cisneros IJ Gastroesop hageal reflux disease without esophagitis 092287756 K21.9 LDCT 06/25/2022 , thickened mucosa, told to contact PCP, by Edson Han Will refer EGD Proteinuria 62793749 R80 .9 On VIT DOn Calcitriol Sees Dr Kayode TORREZ Skin lesion 42146311 L98 .9 S/p removal Dr Nguyen 10/09/2022 Urinary incontinence 165 808268 R32 On flomaxElev ated PSASees Dr Reyes [id number] Walter engel MD [facility] [address] [facility], [address] [place] [address] 08/29/2023 12:08:11 08/29/2023 12:47:34 Screening - NAD 413056094 Z13.9 C-scope: DId get this with Dr Weinberg and next in 5 years 05/08/18 Get yearly flu shotUTD tdapUTD on COVID 19 vaccineCan do shingrixCa n do RSV vaccine RTC in 4 monthsDo labsER if worseHe did verbalize his understand ing of the above Low back pain 522734568 M54.50 On gabapentin 600mg tidDoes well on thisDoes not see pain management Li Galeano Generalize d anxiety disorder 80797116 F41.1 On the sertraline 50mg daily, does well on this doseNot on buspirone 5mg po bid, as he is anxious more as he found out that his GF cheated on him Not suicidal or homicidalD eclines any referral to psychiatry Chronic ob structive pulmonary disease 08225697 J44.9 On ventolinOn trelegyOn HHN Seen 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 S/p PFT 05/26/2021 S/p LDCT 05/08/2021 S/p LDCT 06/25/2022 LDCT 08/07/2023 : Edson Ivy 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 Chronic hepatitis C [address] Bingham 06/30/18 Treated with Harvoni 02/08/2020 : Dr Frazier, f/u in 3 months, started on lasix and aldactone and needs to do EGD 07/26/2020 : Dr Burke Myers: EGD: F/u EGD in 2-3 years and f/u with liver clinic On spironolac tone 50mg daily given by Dr Efren hussein Sees GI Dr Frazier last OV 01/22/2022 Referred 08/29/2023 Essential hypertension 61208803 I10 On lisinopril 40mg daily Does wellGet labsNeeds to see Dr Jeffries Cigarette smoker 5624671 7 F17.210 2-3 PPD for 20 yearsNow 1PPDGet LDCTStates that the welbutrin or the chantix did not work Advised to quit, can do nicotine gum and patchLDCT: 03/21/18: Neg OV 12/22/18:G et LDCT again OV 04/27/19:L DCT 04/15/19: NotedIs to see Dr Bingham and Dr Jeffries OV 08/31/19:S ees Edson Dyerdv ised to use his CPAP OV 12/22/2019 :Keep apt with Edson Ivy NPUses his CPAP OV 06/07/2020 :Now smokes 1-2 cigarettes per day, advised to quit!Get LDCT doneSeyordan Coyne and use CPAP OV 10/05/2020 :Uses CPAPSees pulmonary 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 Ivy 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/07/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 :Advised to quit smokingNee ds to see Edson leal LDCT done OV 06/08/2021 :Now sees Edson Han NPLDCT 05/08/2021 : next in one year OV 10/12/2021 :Keep apt with Edson Han 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/01/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 :Edson Han NP 11/24/2021 , next 05/28/2022 OV 08/30/2022 :See pulmonary OV 01/01/2023 Edson Han next apt 04/24/2023 OV 05/09/2023 : Sees Edson Han 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 08/29/2023 : See pulmonary Obstructiv e sleep apnea syndrome 27407665 G47.33 On CPAP See pulmonary Prostate s pecific antigen above reference range 861233362 R97.[address] Brewer a referral Type 2 yaya betes mellitus without complication 800315015 E11.9 On metformin 500mg bidGet on mounjaro 08/29/2023 as per his wishes, he denies any MEN2, MCT, or pancreatic symptoms, he will get the prescripti on and RTC next week for teaching Does Ina Jones to see eyeDr Lynsey 12/25/2021 , next 07/02/2022 Pain of bi lateral knee joints 1141970265 [address] Marquis 02/13/2022 , s/p knee injections , need to lose weight to get surgery Chronic ki dney disease 322358166 N18.9 S/p US abd 02/02/2022 , Dr Cisneros IJ Gastroesop hageal reflux disease without esophagitis 937249895 K21.9 LDCT 06/25/2022 , thickened mucosa, told to contact PCP, by Edson Han Will refer EGD Proteinuria 48450786 R80 .9 On VIT DOn Calcitriol Sees Dr Kayode TORREZ Skin lesion 34827001 L98 .9 S/p removal Dr Nguyen 10/09/2022 Urinary incontinence 165 568119 R32 On flomaxElev ated PSASees Dr Reyes Screening for malignant neoplasm of colon 279845515 Z12.11 Administra tion of influenza vaccine 80301022 Z23 [id number] Deon Monzon DPM [facility] [address] [address] 09/30/2023 11:06:41 12/20/2023 12:19:37 Plantar wart of right foot 1222551127 5502032 B07.0 hyperkerat oses alexandrea >> 4;onychomy cosis alexandrea Foot callus 908947083 L8 4 bilateral Lesion of skin of foot 7736823463 44259 L98.9 Type 2 yaya betes mellitus without complication 032447866 E11.9 Onychomyco sis of toenails 500297103 B35.1 [id number] Walter engel MD [facility] Internal Med [facility] [address] [facility], [address] [place] [address] 10/08/2023 15:08:26 10/08/2023 15:46:03 Screening - NAD 018406660 Z13.9 C-scope: DId get this with Dr Weinberg and next in 5 years 05/08/18 Get yearly flu shotUTD tdapUTD on COVID 19 vaccineCan do shingrixCa n do RSV vaccine RTC in 4 monthsDo labsER if worseHe did verbalize his understand ing of the above Low back pain 022105443 M54.50 On gabapentin 600mg tidDoes well on thisDoes not see pain management Li Rosas d anxiety disorder 24857364 F41.1 On the sertraline 50mg daily, does well on this doseNot on buspirone 5mg po bid, as he is anxious more as he found out that his GF cheated on him Not suicidal or homicidalD eclines any referral to psychiatry Chronic ob structive pulmonary disease 73702701 J44.9 On ventolinOn lauralegyOn HHN Seen 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 S/p PFT 05/26/2021 S/p LDCT 05/08/2021 S/p LDCT 06/25/2022 LDCT 08/07/2023 : Edson Ivy 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 Chronic hepatitis C [address] Bingham 06/30/18 Treated with Harvoni 02/08/2020 : Dr Frazier, f/u in 3 months, started on lasix and aldactone and needs to do EGD 07/26/2020 : Dr Burke Myers: EGD: F/u EGD in 2-3 years and f/u with liver clinic On spironolac tone 50mg daily given by Dr Efren hussein Sees GI Dr Frazier last OV 01/22/2022 Referred 08/29/2023 Essential hypertension 24458830 I10 On lisinopril 40mg daily Does Ina labsNeeds to see Dr Jeffries Cigarette smoker 4978935 7 F17.210 2-3 PPD for 20 yearsNow 1PPDGet LDCTStates that the welbutrin or the chantix did not work Advised to quit, can do nicotine gum and patchLDCT: 03/21/18: Neg OV 12/22/18:G et LDCT again OV 04/27/19:L DCT 04/15/19: NotedIs to see Dr Bingham and Dr Jeffries OV 08/31/19:S ees Edson Dyerdv ised to use his CPAP OV 12/22/2019 :Keep apt with Edson Ivy NPUses his CPAP OV 06/07/2020 :Now smokes 1-2 cigarettes per day, advised to quit!Get LDCT doneSeyordan Coyne and use CPAP OV 10/05/2020 :Uses CPAPSees pulmonary Edson Ivy 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/07/2021 :Advised to quit smokingNee ds to see Edson leal LDCT done OV 06/08/2021 :Now sees Edson Han NPLDCT 05/08/2021 : next in one year OV 10/12/2021 :Keep apt with Edson Han NP OV 03/01/2022 :Edson Han NP 11/24/2021 , next 05/28/2022 OV 08/30/2022 :See pulmonary OV 01/01/2023 Edson Han next apt 04/24/2023 OV 05/09/2023 : Sees Edson Han 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 08/29/2023 : See pulmonary OV 10/08/2023 : Keep apt with Dr Syed Obstructiv e sleep apnea syndrome 85354182 G47.33 On CPAP See pulmonary Prostate s pecific antigen above reference range 996314641 R97.[address] Brewer a referral Type 2 yaya betes mellitus without complication 625008716 E11.9 On metformin 500mg bidOn mounjaro 08/29/2023 He denies any MEN2, MCT, or pancreatic symptoms, he will get the prescripti on and RTC next week for teaching Does Ina labsNeeds to see Renae Menon 12/25/2021 , next 07/02/2022 OV 10/08/2023 :Andrew teaching done today, advised on how to use the pen, all side effects explained to him regarding the Mounlachellero, he did verbalize his understand ing of the teachingGe t labs Pain of bi lateral knee joints 0763631934 [address] Marquis 02/13/2022 , s/p knee injections , need to lose weight to get surgery Chronic ki dney disease 514883487 N18.9 S/p US abd 02/02/2022 , Dr Cisneros IJ Gastroesop hageal reflux disease without esophagitis 223301785 K21.9 LDCT 06/25/2022 , thickened mucosa, told to contact PCP, by Edson Han Will refer EGD Proteinuria 68423487 R80 .9 On VIT DOn Calcitriol Sees Dr Kayode TORREZ Skin lesion 51947758 L98 .9 S/p removal Dr Nguyen 10/09/2022 Urinary incontinence 165 677667 R32 On flomaxElev ated PSASees Dr Reyes Screening for malignant neoplasm of colon 513131177 Z12.11 [id number] Walter engel MD [facility] [address] [facility], [facility] [address] [place] [address] 01/02/2024 11:55:23 01/02/2024 13:09:24 Screening - NAD 341091262 Z13.9 C-scope: DId get this with Dr Weinberg and next in 5 years 05/08/18 Get yearly flu shotUTD tdapUTD on COVID 19 vaccineCan do shingrixCa n do RSV vaccine RTC in 4 monthsDo labsER if worseHe did verbalize his understand ing of the above Low back pain 304236377 M54.50 On gabapentin 600mg tidDoes well on thisDoes not see pain management Li Galeano Generalize d anxiety disorder 60607480 F41.1 On the sertraline 50mg daily, does well on this doseNot on buspirone 5mg po bid, as he is anxious more as he found out that his GF cheated on him Not suicidal or homicidalD eclines any referral to psychiatry Chronic ob structive pulmonary disease 45422724 J44.9 On ventolinOn trelegy, change to BreztrMaria C SWEENEYN Seen 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 S/p PFT 05/26/2021 S/p LDCT 05/08/2021 S/p LDCT 06/25/2022 LDCT 08/07/2023 : Edson Ivy 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 Chronic hepatitis C [address] Bingham 06/30/18 Treated with Harvoni 02/08/2020 : Dr Frazier, f/u in 3 months, started on lasix and aldactone and needs to do EGD 07/26/2020 : Dr Burke Myers: EGD: F/u EGD in 2-3 years and f/u with liver clinic On spironolac tone 50mg daily given by Dr Efren hussein Sees GI Dr Frazier last OV 01/22/2022 Referred 08/29/2023 Essential hypertension 60178000 I10 On lisinopril 20mg daily, filled by Dr Cisneros IJ 12/29/2023 Does wellGet labsNeeds to see Dr Jeffries Cigarette smoker 8505137 7 F17.210 2-3 PPD for 20 yearsNow 1PPDGet LDCTStates that the welbutrin or the chantix did not work Advised to quit, can do nicotine gum and patchLDCT: 03/21/18: Neg OV 12/22/18:G et LDCT again OV 04/27/19:L DCT 04/15/19: NotedIs to see Dr Bingham and Dr Jeffries OV 08/31/19:S ees Edson Dyerdv ised to use his CPAP OV 12/22/2019 :Keep apt with Edson Ivy NPUses his CPAP OV 06/07/2020 :Now smokes 1-2 cigarettes per day, advised to quit!Get LDCT doneSeyordan Coyne and use CPAP OV 10/05/2020 :Uses CPAPSees pulmonary Edson Ivy 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/07/2021 :Advised to quit smokingNee ds to see Edson leal LDCT done OV 06/08/2021 :Now sees Edson Han NPLDCT 05/08/2021 : next in one year OV 10/12/2021 :Keep apt with Edson Han 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/01/2022 :Edson Han 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 11/24/2021 , next 05/28/2022 OV 08/30/2022 :See pulmonary OV 01/01/2023 Edson Han next apt 04/24/2023 OV 05/09/2023 : Sees Edson Han 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 08/29/2023 : See pulmonary OV 10/08/2023 : Keep apt with Dr Syed OV 01/02/2024 : Now sees Edson Obstructiv e sleep apnea syndrome 29813457 G47.33 On CPAP See pulmonary Prostate s pecific antigen above reference range 518814331 R97.[address] Brewer a referral Type 2 yaya betes mellitus without complication 332316882 E11.9 On metformin 500mg bidOn mounjaro 08/29/2023 He denies any MEN2, MCT, or pancreatic symptoms, he will get the prescripti on and RTC next week for teaching Does Ina labsNeeds to see eyeDr Rammacher 12/25/2021 , next 07/02/2022 OV 10/08/2023 :Mounjaro teaching done today, advised on how to use the pen, all side effects explained to him regarding the Mounjaro, he did verbalize his understand ing of the teachingGe t labs OV 01/02/2024 : Does Ina labs Pain of bi lateral knee joints 5891521518 [address] Marquis 02/13/2022 , s/p knee injections , need to lose weight to get surgeryGet a referral to ortho Chronic ki dney disease 478125117 N18.9 S/p US abd 02/02/2022 , Dr Kayode TORREZ Gastroesop hageal reflux disease without esophagitis 869594457 K21.9 LDCT 06/25/2022 , thickened mucosa, told to contact PCP, by Edson Han Will refer EGD Proteinuria 54728129 R80 .9 On VIT DOn Calcitriol Sees Dr Kayode TORREZ Skin lesion 80352798 L98 .9 S/p removal Dr Nguyen 10/09/2022 Urinary incontinence 165 471026 R32 On flomaxElev ated PSASees Dr Reyes Screening for malignant neoplasm of colon 871199826 Z12.11 Screening for malignant neoplasm of prostate 509654210 Z12.5 Adult heal th examination 785688873 Z00.00 Screening for disorder 793709402 Z13.9 [id number] Walter engel MD [facility] Internal Med [facility] [address] [facility], [facility] [address] [place] [address] 05/07/2024 11:28:32 05/07/2024 12:11:47 Screening - NAD 866928848 Z13.9 C-scope: DId get this with Dr Weinberg and next in 5 years 05/08/18 Get yearly flu shotUTD tdapUTD on COVID 19 vaccineCan do shingrixCa n do RSV vaccine OV 05/07/2024 : His disability paperwork completed and handed to him RTC in 4 monthsDo labsER if worseHe did verbalize his understand ing of the above Low back pain 935165635 M54.50 On gabapentin 600mg tidDoes well on thisDoes not see pain management Li Galeano Generalize d anxiety disorder 31577367 F41.1 On the sertraline 50mg daily, does well on this doseNot on buspirone 5mg po bid, as he is anxious more as he found out that his GF cheated on him Not suicidal or homicidalD eclines any referral to psychiatry Chronic ob structive pulmonary disease 35118276 J44.9 On ventolinOn trelegy, change to BreztriOn HHN Seen 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 S/p PFT 05/26/2021 S/p LDCT 05/08/2021 S/p LDCT 06/25/2022 LDCT 08/07/2023 : Edson Ivy 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 Chronic hepatitis C [address] Bingham 06/30/18 Treated with Harvoni 02/08/2020 : Dr Frazier, f/u in 3 months, started on lasix and aldactone and needs to do EGD 07/26/2020 : Dr Burke Myers: EGD: F/u EGD in 2-3 years and f/u with liver clinic On spironolac tone 50mg daily given by Dr fEren hussein Sees GI Dr Frazier last OV 01/22/2022 Referred 08/29/2023 Essential hypertension 41229868 I10 On lisinopril 20mg daily, filled by Dr Cisneros IJ 12/29/2023 Does wellGet labsNeeds to see Dr Jeffries Cigarette smoker 6844550 7 F17.210 2-3 PPD for 20 yearsNow 1PPDGet LDCTStates that the welbutrin or the chantix did not work Advised to quit, can do nicotine gum and patchLDCT: 03/21/18: Neg OV 12/22/18:G et LDCT again OV 04/27/19:L DCT 04/15/19: NotedIs to see Dr Bingham and Dr Jeffries OV 08/31/19:S ees Edson Dyerdv ised to use his CPAP OV 12/22/2019 :Keep apt with Edson Ivy NPUses his CPAP OV 06/07/2020 :Now smokes 1-2 cigarettes per day, advised to quit!Get LDCT doneSees Edson and use CPAP OV 10/05/2020 :Uses CPAPSees pulmonary Edson Ivy 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/07/2021 :Advised to quit smokingNee ds to see Edson Barry t LDCT done OV 06/08/2021 :Now sees Edson Han NPLDCT 05/08/2021 : next in one year OV 10/12/2021 :Keep apt with Edson Han NP OV 03/01/2022 :Edson Han NP 11/24/2021 , next 05/28/2022 OV 08/30/2022 :See pulmonary OV 01/01/2023 Edson Han next apt 04/24/2023 OV 05/09/2023 : Sees Edson Han NP OV 08/29/2023 : See pulmonary OV 10/08/2023 : Keep apt with Dr Syed OV 01/02/2024 : Now sees Edson OV 05/07/2024 : See Edson Han NP Obstructiv e sleep apnea syndrome 68545849 G47.33 On CPAP See pulmonary Prostate s pecific antigen above reference range 065203941 R97.[address] Brewer a referral Type 2 yaya betes mellitus without complication 103524862 E11.9 On metformin 500mg Kiko conde 08/29/2023 He denies any MEN2, MCT, or pancreatic symptoms, he will get the prescripti on and RTC next week for teaching Does wellGet labsNeeds to see Renae Menon 12/25/2021 , next 07/02/2022 OV 10/08/2023 :Mounjaro teaching done today, advised on how to use the pen, all side effects explained to him regarding the Mounjaro, he did verbalize his understand ing of the teachingGe t labs OV 01/02/2024 : Does wellGet labs OV 05/07/2024 :On metforminG et labs Pain of bi lateral knee joints 4137941302 [address] Marquis 02/13/2022 , s/p knee injections , need to lose weight to get surgeryGet a referral to ortho Chronic ki dney disease 666504660 N18.9 S/p US abd 02/02/2022 , Dr Cisneros IJ Gastroesop hageal reflux disease without esophagitis 826119444 K21.9 LDCT 06/25/2022 , thickened mucosa, told to contact PCP, by Edson Han Will refer EGD Proteinuria 62928544 R80 .9 On VIT DOn Calcitriol Sees Dr Kayode TORREZ Skin lesion 59668337 L98 .9 S/p removal Dr Nguyen 10/09/2022 Urinary incontinence 165 524724 R32 On flomaxElev ated PSASees Dr Reyes Screening for malignant neoplasm of colon 445922145 Z12.11 Screening for malignant neoplasm of prostate 526313051 Z12.5 Hearing loss 33542525 H9 1.90 Refer to audiologis t, feels that his hearing is not as good [id number] Walter engel MD [facility] Internal Med [facility] [address] [facility], [address] [place] [address] 08/06/2024 12:08:48 08/06/2024 13:09:16 Screening - NAD 820927449 Z13.9 C-scope: DId get this with Dr Weinberg and next in 5 years 05/08/18 Get yearly flu shotUTD tdapUTD on COVID 19 vaccineCan do shingrixCa n do RSV vaccine OV 05/07/2024 : His disability paperwork completed and handed to him RTC in 4 monthsDo labsER if worseHe did verbalize his understand ing of the above Low back pain 092120556 M54.50 On gabapentin 600mg tidDoes well on thisDoes not see pain management Li Rosas d anxiety disorder 63824940 F41.1 On the sertraline 50mg daily, does well on this doseNot on buspirone 5mg po bid, as he is anxious more as he found out that his GF cheated on him Not suicidal or homicidalD eclines any referral to psychiatry Chronic ob structive pulmonary disease 43686027 J44.9 On ventolinOn trelegy, change to BreztriOn HHN Seen 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 S/p PFT 05/26/2021 S/p LDCT 05/08/2021 S/p LDCT 06/25/2022 LDCT 08/07/2023 : Edson Ivy 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 Chronic hepatitis C 1283 [address] B18.2 Dr Bingham 06/30/18 Treated with Harvoni 02/08/2020 : Dr Frazier, f/u in 3 months, started on lasix and aldactone and needs to do EGD 07/26/2020 : Dr Burke Cherryca: EGD: F/u EGD in 2-3 years and f/u with liver clinic On spironolac tone 50mg daily given by Dr Efren hussein Sees GI Dr Frazier last OV 01/22/2022 Referred 08/29/2023 Essential hypertension 88570653 I10 On lisinopril 20mg daily, filled by Dr Cisneros IJ 12/29/2023 Does wellGet labsNeeds to see Dr Jeffries Cigarette smoker 7009707 7 F17.210 2-3 PPD for 20 yearsNow 1PPDGet LDCTStates that the welbutrin or the chantix did not work Advised to quit, can do nicotine gum and patchLDCT: 03/21/18: Neg OV 12/22/18:G et LDCT again OV 04/27/19:L DCT 04/15/19: NotedIs to see Dr Bingham and Dr Jeffries OV 08/31/19:S ees Edson Dyerdv ised to use his CPAP OV 12/22/2019 :Keep apt with Edson Ivy NPUses his CPAP OV 06/07/2020 :Now smokes 1-2 cigarettes per day, advised to quit!Get LDCT doneSees Edson and use CPAP OV 10/05/2020 :Uses CPAPSees pulmonary Edson Ivy 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/07/2021 :Advised to quit smokingNee ds to see Edson Barry t LDCT done OV 06/08/2021 :Now sees Edson Han NPLDCT 05/08/2021 : next in one year OV 10/12/2021 :Keep apt with Edson Han 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/01/2022 :Edson Han 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 11/24/2021 , next 05/28/2022 OV 08/30/2022 :See pulmonary OV 01/01/2023 Edson Han next apt 04/24/2023 OV 05/09/2023 : Sees Edson Han 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 08/29/2023 : See pulmonary OV 10/08/2023 : Keep apt with Dr Syed OV 01/02/2024 : Now sees Edson OV 05/07/2024 : See Edson Han NP OV 08/06/2024 : Edson Han NPAdvised to quit smoking, also on trelegy Obstructiv e sleep apnea syndrome 66733947 G47.33 On CPAP See pulmonary Prostate s pecific antigen above reference range 833075898 R97.[address] Reyes Type 2 yaya betes mellitus without complication 963195215 E11.9 On metformin 500mg bidOn mounjaro 08/29/2023 He denies any MEN2, MCT, or pancreatic symptoms, he will get the prescripti on and RTC next week for teaching Joe sainiNevarsha to see Renae Menon 12/25/2021 , next 07/02/2022 OV 10/08/2023 :Mounjaro teaching done today, advised on how to use the pen, all side effects explained to him regarding the Mounjaro, he did verbalize his understand ing of the teachingHemal t labs OV 01/02/2024 : Does davidGet labs OV 05/07/2024 :On metforminG et labs OV 08/06/2024 :On metforminO n Andrew, does very well, states that he has tolerated the Mounjaro very well, and has continued to lose weightAdvi sed to hydrate and also use his supplement sNeeds to do labs, has to see eye MD also Pain of bi lateral knee joints 0273867651 [address] Marquis 02/13/2022 , s/p knee injections , need to lose weight to get surgeryGet a referral to ortho, referred again 08/06/2024 Chronic ki dney disease 788275671 N18.9 S/p US abd 02/02/2022 , Dr Kayode TORREZ Gastroesop hageal reflux disease without esophagitis 423117595 K21.9 LDCT 06/25/2022 , thickened mucosa, told to contact PCP, by Edson Han Will refer EGD Proteinuria 16443303 R80 .9 On VIT DOn Calcitriol Sees Dr Kayode TORREZ Skin lesion 06321813 L98 .9 S/p removal Dr Nguyen 10/09/2022 Urinary incontinence 165 607302 R32 On flomaxElev ated PSASees Dr Reyes Screening for malignant neoplasm of colon 844834296 Z12.11 Hearing loss 94092218 H9 1.90 Refer to audiologis t, feels that his hearing is not as good Administra tion of influenza vaccine 86807458 Z23 [id number] Walter engel MD [facility] [place] [facility] [address] [address] 11/03/2024 11:51:08 11/03/2024 12:48:30 Screening - NAD 908115613 Z13.9 C-scope: DId get this with Dr Weinberg and next in 5 years 05/08/18 Get yearly flu shotUTD tdapUTD on COVID 19 vaccineCan do shingrixCa n do RSV vaccineCan do #20 pneumonia OV 05/07/2024 : His disability paperwork completed and handed to him RTC in 4 monthsDo labsER if worseHe did verbalize his understand ing of the above Low back pain 387824088 M54.50 On gabapentin 600mg tidDoes well on thisDoes not see pain management Li Galeano Generalize d anxiety disorder 74026202 F41.1 On the sertraline 50mg daily, does well on this doseNot on buspirone 5mg po bid, as he is anxious more as he found out that his GF cheated on him Not suicidal or homicidalD eclines any referral to psychiatry Chronic ob structive pulmonary disease 08792328 J44.9 On ventolinOn BreztriOn HHN Seen 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 S/p PFT 05/26/2021 S/p LDCT 05/08/2021 S/p LDCT 06/25/2022 LDCT 08/07/2023 : Edson Ivy 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 Chronic hepatitis C [address] Bingham 06/30/18 Treated with Harvoni 02/08/2020 : Dr Frazier, f/u in 3 months, started on lasix and aldactone and needs to do EGD 07/26/2020 : Dr Burke Myers: EGD: F/u EGD in 2-3 years and f/u with liver clinic On spironolac tone 50mg daily given by Dr Efren hussein Sees GI Dr Frazier last OV 01/22/[address] Frazier on 12/2024 Essential hypertension 64949443 I10 On lisinopril 20mg daily, filled by Dr Cisneros IJ 12/29/2023 Does wellGet labsSeen by Dr Jeffries, s/p veneseal on 10/29/2024 Cigarette smoker 1725195 7 F17.210 2-3 PPD for 20 yearsNow 1PPDGet LDCTStates that the welbutrin or the chantix did not work Advised to quit, can do nicotine gum and patchLDCT: 03/21/18: Neg OV 12/22/18:G et LDCT again OV 04/27/19:L DCT 04/15/19: NotedIs to see Dr Bingham and Dr Jeffries OV 08/31/19:S ees Edson Dyerdv ised to use his CPAP OV 12/22/2019 :Keep apt with Edson Ivy NPUses his CPAP OV 06/07/2020 :Now smokes 1-2 cigarettes per day, advised to quit!Get LDCT doneSees Edson and use CPAP OV 10/05/2020 :Uses CPAPSees pulmonary Edson Ivy 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/07/2021 :Advised to quit smokingNee ds to see Edson CottrellGe t LDCT done OV 06/08/2021 :Now sees Edson Han NPLDCT 05/08/2021 : next in one year OV 10/12/2021 :Keep apt with Edson Han NP OV 03/01/2022 :Edson Han 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 11/24/2021 , next 05/28/2022 OV 08/30/2022 :See pulmonary OV 01/01/2023 Edson Han next apt 04/24/2023 OV 05/09/2023 : Sees Edson Han 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 08/29/2023 : See pulmonary OV 10/08/2023 : Keep apt with Dr Syed OV 01/02/2024 : Now sees Edson OV 05/07/2024 : See Edson Han NP OV 08/06/2024 : Edson Han NPAdvised to quit smoking, also on trelegy OV 11/03/2024 : Edson Han NPAdvised to quit! Obstructiv e sleep apnea syndrome 38200923 G47.33 On CPAP See pulmonary Prostate s pecific antigen above reference range 602106851 R97.[address] Reyes, now diagnosed with prostate cancerBx 09/18/2024 , is contemplat ing surgery or radiation Type 2 yaya betes mellitus without complication [id number] E11.9 On metformin 500mg bidOn mounjaro 08/29/2023 He denies any MEN2, MCT, or pancreatic symptoms, he will get the prescripti on and RTC next week for teaching Does wellGet labsNeeds to see Renae Rammacher 12/25/2021 , next 07/02/2022 OV 10/08/2023 :Mounjaro teaching done today, advised on how to use the pen, all side effects explained to him regarding the Mounjaro, he did verbalize his understand ing of the teachingGe t labs OV 01/02/2024 : Does wellGet labs OV 05/07/2024 :On metforminG et labs OV 08/06/2024 :On metforminO n Andrew, does very well, states that he has tolerated the Mounjaro very well, and has continued to lose weightAdvi sed to hydrate and also use his supplement sNeeds to do labs, has to see eye MD also OV 11/03/2024 :On metforminO n MounjaroGe t labs Pain of bi lateral knee joints [id number] [address] Marquis 02/13/2022 , s/p knee injections , need to lose weight to get surgeryGet a referral to ortho, referred again 08/06/2024 Chronic ki dney disease 913364411 N18.9 S/p US abd 02/02/2022 , Dr Kayode TORREZ Gastroesop hageal reflux disease without esophagitis [id number] K21.9 LDCT 06/25/2022 , thickened mucosa, told to contact PCP, by Edson Han Will refer EGD Proteinuria 52848641 R80 .9 On VIT DOn Calcitriol Sees Dr Kayode TORREZ Skin lesion 11897853 L98 .9 S/p removal Dr Nguyen 10/09/2022 Urinary incontinence 165 592629 R32 On flomaxElev ated PSASees Dr Reyes Screening for malignant neoplasm of colon [id number] Z12.11 Hearing loss 17528671 H9 1.90 Refer to audiologis t, feels that his hearing is not as good Health Concerns Section Related Observation LastModified by Organization Detai ls LastModified Time None Recorded Concern Status LastModified by Organization Details LastModified Time None Recorded Advance Directives Directive N: papers given previously Payers Encounter Date Sequence Insurance Name Policy Number Policy Walters Covered Member ID Walters Member ID Guarantor Name 10/08/2023 1 [facility] (MEDICARE REPLACEMENT/A DVANTAGE - HMO) [id number] Celio Foote [id number] Celio Foote 01/02/2024 1 [facility] (MEDICARE REPLACEMENT/A DVANTAGE - HMO) [id number] Celio Foote [id number] Celio Foote 05/07/2024 1 [facility] (MEDICARE REPLACEMENT/A DVANTAGE - HMO) [id number] Celio Foote [id number] Celio Foote 08/06/2024 1 [facility] (MEDICARE REPLACEMENT/A DVANTAGE - HMO) [id number] Celio Foote [id number] Celio Foote 11/03/2024 1 [facility] (MEDICARE REPLACEMENT/A DVANTAGE - HMO) [id number] Celio Foote [id number] Celio Foote Notes Date Note Type Note Provider Name and Address Organization Details Recorded Time 4 text/htm l OV 03/13/18:Here to establish care:Past PMD: Dr Reyes, last apt on 03/17/18Past Hx:HTNLBPKidney stonesDepressionReviewed social family historyHe states that he is doing well todayHe would like to get a referral to pain management as he does have 'bone on bone knee pain' and LBPHe states that he used to be on hydrocodone, but has tried to wean off this but needs to see pain managementOV 05/19/18:Here as he was in the hospital, he states that he is doing well at this timeHe was seen there for RUQ abd pain, he did a have a CT abd and a KUBOV 06/30/18:Here for his routine aptHe did have labs on 06/17/18 and is here to review theseOV 12/22/18:Here for his routine aptHe has not done any labs, he does want an apt with ortho for R>L knee painHe would like to check a KUB OV 04/27/19:Here for his routine aptNo new labsDoes have URI sx of cough, dry, no fevers, no chest pain or SOB, no blood in sputumNo rash, no wheezingHe states that he did do a sleep study but does not have the results yet from itOV 08/31/19:Here for his routine aptHe is doing well todayHis last labs were on 07/14/19OV 12/22/2019:Here for his routine aptHe has not done any new labsHe feels wellHe does have a spot on his R ankle, it is red, is tender, he does not recall any direct trauma to the area or any insect bite, no fevers or chills, no N/V or diarrheaHis ROS is otherwise negativeOV 06/07/2020:Here for his routine aptHe feels wellHe has not done the labsHe does c/o R shoulder pain, this is sharp, went to pain management and they did and xray and was told it was 'bone on bone', he is R handed, no weakness in the R UENo acute or remote traumaHe is here for his MWV alsoOV 10/05/2020:Here for his routine aptHe feels wellHe has done the labs yesterday, and states that he has also done labs for Dr Girno has also had a shot in the R shoulder from pain management and this has really helped the pain and the movement in the shoulderOV 02/07/2021:Here for his routine aptHe is doing very wellHe did do the labs and is here to review theseOV 06/08/2021:Here for his routine aptHe feels that he does have a URI, sx of cough, dry, no fevers, no chest pain or SOB, no blood in sputumNo rash, no wheezingNo exposure to COVID 19 and he has had his COVID 19 vaccine doneHe did do the labs on 05/26/2021Here for his MWVOV 10/12/2021:Here for his routine aptHe is doing wellNo new labs notedWnats to see ortho as he has alexandrea knee pain, does not see pain management nowOV 03/01/2022:Here for his routine aptHe is doing very well, he did see Dr Marquis and did have shots in the knees but was told to lose weightHe did see Dr Cisneros IJ alsoNeeds to do labsOV 08/30/2022:Here for his f/u apt, he is doing well today, he did 08/24/2022 OV 01/01/2023:Here for his f/u apt, he is doing well OV 05/09/2023: Here for his routine apt, is doing well today, labs done on 05/08/2023 OV 08/29/2023: Here for his f/u apt, he is doing well today, he did do thelabs OV 10/08/2023: Here for his Andrew training, he is doing very well now Walter Gonzalez MD [address] [facility], [address], [place], [address], [place] [facility] 10/17/2023 11:50:47 4 text/htm l OV 03/13/18:Here to establish care:Past PMD: Dr Reyes, last apt on 03/17/18Past Hx:HTNLBPKidney stonesDepressionReviewed social family historyHe states that he is doing well todayHe would like to get a referral to pain management as he does have 'bone on bone knee pain' and LBPHe states that he used to be on hydrocodone, but has tried to wean off this but needs to see pain managementOV 05/19/18:Here as he was in the hospital, he states that he is doing well at this timeHe was seen there for RUQ abd pain, he did a have a CT abd and a KUBOV 06/30/18:Here for his routine aptHe did have labs on 06/17/18 and is here to review theseOV 12/22/18:Here for his routine aptHe has not done any labs, he does want an apt with ortho for R>L knee painHe would like to check a KUB OV 04/27/19:Here for his routine aptNo new labsDoes have URI sx of cough, dry, no fevers, no chest pain or SOB, no blood in sputumNo rash, no wheezingHe states that he did do a sleep study but does not have the results yet from itOV 08/31/19:Here for his routine aptHe is doing well todayHis last labs were on 07/14/19OV 12/22/2019:Here for his routine aptHe has not done any new labsHe feels wellHe does have a spot on his R ankle, it is red, is tender, he does not recall any direct trauma to the area or any insect bite, no fevers or chills, no N/V or diarrheaHis ROS is otherwise negativeOV 06/07/2020:Here for his routine aptHe feels wellHe has not done the labsHe does c/o R shoulder pain, this is sharp, went to pain management and they did and xray and was told it was 'bone on bone', he is R handed, no weakness in the R UENo acute or remote traumaHe is here for his MWV alsoOV 10/05/2020:Here for his routine aptHe feels wellHe has done the labs yesterday, and states that he has also done labs for Dr Giron has also had a shot in the R shoulder from pain management and this has really helped the pain and the movement in the shoulderOV 02/07/2021:Here for his routine aptHe is doing very wellHe did do the labs and is here to review theseOV 06/08/2021:Here for his routine aptHe feels that he does have a URI, sx of cough, dry, no fevers, no chest pain or SOB, no blood in sputumNo rash, no wheezingNo exposure to COVID 19 and he has had his COVID 19 vaccine doneHe did do the labs on 05/26/2021Here for his MWVOV 10/12/2021:Here for his routine aptHe is doing wellNo new labs notedWnats to see ortho as he has alexandrea knee pain, does not see pain management nowOV 03/01/2022:Here for his routine aptHe is doing very well, he did see Dr Marquis and did have shots in the knees but was told to lose weightHe did see Dr Cisneros IJ alsoNeeds to do labsOV 08/30/2022:Here for his f/u apt, he is doing well today, he did 08/24/2022 OV 01/01/2023:Here for his f/u apt, he is doing well OV 05/09/2023: Here for his routine apt, is doing well today, labs done on 05/08/2023 OV 08/29/2023: Here for his f/u apt, he is doing well today, he did do thelabs OV 10/08/2023: Here for his Mounjaro training, he is doing very well now OV 01/02/2024: Here for his routine apt, he is doing well, and states that he has tolerated his Mounjaro very well Walter Gonzalez MD [address] [facility], [address], [place], [address], [place] - [facility] [employer] [facility] 01/08/2024 18:12:25 4 text/htm l OV 03/13/18:Here to establish care:Past PMD: Dr Reyes, last apt on 03/17/18Past Hx:HTNLBPKidney stonesDepressionReviewed social family historyHe states that he is doing well todayHe would like to get a referral to pain management as he does have 'bone on bone knee pain' and LBPHe states that he used to be on hydrocodone, but has tried to wean off this but needs to see pain managementOV 05/19/18:Here as he was in the hospital, he states that he is doing well at this timeHe was seen there for RUQ abd pain, he did a have a CT abd and a KUBOV 06/30/18:Here for his routine aptHe did have labs on 06/17/18 and is here to review theseOV 12/22/18:Here for his routine aptHe has not done any labs, he does want an apt with ortho for R>L knee painHe would like to check a KUB OV 04/27/19:Here for his routine aptNo new labsDoes have URI sx of cough, dry, no fevers, no chest pain or SOB, no blood in sputumNo rash, no wheezingHe states that he did do a sleep study but does not have the results yet from itOV 08/31/19:Here for his routine aptHe is doing well todayHis last labs were on 07/14/19OV 12/22/2019:Here for his routine aptHe has not done any new labsHe feels wellHe does have a spot on his R ankle, it is red, is tender, he does not recall any direct trauma to the area or any insect bite, no fevers or chills, no N/V or diarrheaHis ROS is otherwise negativeOV 06/07/2020:Here for his routine aptHe feels wellHe has not done the labsHe does c/o R shoulder pain, this is sharp, went to pain management and they did and xray and was told it was 'bone on bone', he is R handed, no weakness in the R UENo acute or remote traumaHe is here for his MWV alsoOV 10/05/2020:Here for his routine aptHe feels wellHe has done the labs yesterday, and states that he has also done labs for Dr Giron has also had a shot in the R shoulder from pain management and this has really helped the pain and the movement in the shoulderOV 02/07/2021:Here for his routine aptHe is doing very wellHe did do the labs and is here to review theseOV 06/08/2021:Here for his routine aptHe feels that he does have a URI, sx of cough, dry, no fevers, no chest pain or SOB, no blood in sputumNo rash, no wheezingNo exposure to COVID 19 and he has had his COVID 19 vaccine doneHe did do the labs on 05/26/2021Here for his MWVOV 10/12/2021:Here for his routine aptHe is doing wellNo new labs notedWnats to see ortho as he has alexandrea knee pain, does not see pain management nowOV 03/01/2022:Here for his routine aptHe is doing very well, he did see Dr Marquis and did have shots in the knees but was told to lose weightHe did see Dr Cisneros IJ alsoNeeds to do labsOV 08/30/2022:Here for his f/u apt, he is doing well today, he did 08/24/2022 OV 01/01/2023:Here for his f/u apt, he is doing well OV 05/09/2023: Here for his routine apt, is doing well today, labs done on 05/08/2023 OV 08/29/2023: Here for his f/u apt, he is doing well today, he did do thelabs OV 10/08/2023: Here for his Mounjaro training, he is doing very well now OV 01/02/2024: Here for his routine apt, he is doing well, and states that he has tolerated his Mounjaro very well OV 05/07/2024: Here for his f/u apt, he is doing very well today, he has not done his labs, but he would like to get his disability paperwork done Walter Gonzalez MD [address] [facility] [facility] [address], [place], [address], [place] - [facility] 05/14/2024 15:47:18 4 text/htm l OV 03/13/18:Here to establish care:Past PMD: Dr Reyes, last apt on 03/17/18Past Hx:HTNLBPKidney stonesDepressionReviewed social family historyHe states that he is doing well todayHe would like to get a referral to pain management as he does have 'bone on bone knee pain' and LBPHe states that he used to be on hydrocodone, but has tried to wean off this but needs to see pain managementOV 05/19/18:Here as he was in the hospital, he states that he is doing well at this timeHe was seen there for RUQ abd pain, he did a have a CT abd and a KUBOV 06/30/18:Here for his routine aptHe did have labs on 06/17/18 and is here to review theseOV 12/22/18:Here for his routine aptHe has not done any labs, he does want an apt with ortho for R>L knee painHe would like to check a KUB OV 04/27/19:Here for his routine aptNo new labsDoes have URI sx of cough, dry, no fevers, no chest pain or SOB, no blood in sputumNo rash, no wheezingHe states that he did do a sleep study but does not have the results yet from itOV 08/31/19:Here for his routine aptHe is doing well todayHis last labs were on 07/14/19OV 12/22/2019:Here for his routine aptHe has not done any new labsHe feels wellHe does have a spot on his R ankle, it is red, is tender, he does not recall any direct trauma to the area or any insect bite, no fevers or chills, no N/V or diarrheaHis ROS is otherwise negativeOV 06/07/2020:Here for his routine aptHe feels wellHe has not done the labsHe does c/o R shoulder pain, this is sharp, went to pain management and they did and xray and was told it was 'bone on bone', he is R handed, no weakness in the R UENo acute or remote traumaHe is here for his MWV alsoOV 10/05/2020:Here for his routine aptHe feels wellHe has done the labs yesterday, and states that he has also done labs for Dr Giron has also had a shot in the R shoulder from pain management and this has really helped the pain and the movement in the shoulderOV 02/07/2021:Here for his routine aptHe is doing very wellHe did do the labs and is here to review theseOV 06/08/2021:Here for his routine aptHe feels that he does have a URI, sx of cough, dry, no fevers, no chest pain or SOB, no blood in sputumNo rash, no wheezingNo exposure to COVID 19 and he has had his COVID 19 vaccine doneHe did do the labs on 05/26/2021Here for his MWVOV 10/12/2021:Here for his routine aptHe is doing wellNo new labs notedWnats to see ortho as he has alexandrea knee pain, does not see pain management nowOV 03/01/2022:Here for his routine aptHe is doing very well, he did see Dr Marquis and did have shots in the knees but was told to lose weightHe did see Dr Cisneros IJ alsoNeeds to do labsOV 08/30/2022:Here for his f/u apt, he is doing well today, he did 08/24/2022 OV 01/01/2023:Here for his f/u apt, he is doing well OV 05/09/2023: Here for his routine apt, is doing well today, labs done on 05/08/2023 OV 08/29/2023: Here for his f/u apt, he is doing well today, he did do thelabs OV 10/08/2023: Here for his Mounjaro training, he is doing very well now OV 01/02/2024: Here for his routine apt, he is doing well, and states that he has tolerated his Mounjaro very well OV 05/07/2024: Here for his f/u apt, he is doing very well today, he has not done his labs, but he would like to get his disability paperwork done OV 08/06/2024: Here for his f/u apt, he is doing very well, he did see Dr Allred and is now to get another imaging done as his PSA was again elevated Walter Gonzalez MD [address] [facility], [place], [address], [place] [facility] 08/06/2024 14:19:02 5 text/htm l OV 03/13/18:Here to establish care:Past PMD: Dr Reyes, last apt on 03/17/18Past Hx:HTNLBPKidney stonesDepressionReviewed social family historyHe states that he is doing well todayHe would like to get a referral to pain management as he does have 'bone on bone knee pain' and LBPHe states that he used to be on hydrocodone, but has tried to wean off this but needs to see pain managementOV 05/19/18:Here as he was in the hospital, he states that he is doing well at this timeHe was seen there for RUQ abd pain, he did a have a CT abd and a KUBOV 06/30/18:Here for his routine aptHe did have labs on 06/17/18 and is here to review theseOV 12/22/18:Here for his routine aptHe has not done any labs, he does want an apt with ortho for R>L knee painHe would like to check a KUB OV 04/27/19:Here for his routine aptNo new labsDoes have URI sx of cough, dry, no fevers, no chest pain or SOB, no blood in sputumNo rash, no wheezingHe states that he did do a sleep study but does not have the results yet from itOV 08/31/19:Here for his routine aptHe is doing well todayHis last labs were on 07/14/19OV 12/22/2019:Here for his routine aptHe has not done any new labsHe feels wellHe does have a spot on his R ankle, it is red, is tender, he does not recall any direct trauma to the area or any insect bite, no fevers or chills, no N/V or diarrheaHis ROS is otherwise negativeOV 06/07/2020:Here for his routine aptHe feels wellHe has not done the labsHe does c/o R shoulder pain, this is sharp, went to pain management and they did and xray and was told it was 'bone on bone', he is R handed, no weakness in the R UENo acute or remote traumaHe is here for his MWV alsoOV 10/05/2020:Here for his routine aptHe feels wellHe has done the labs yesterday, and states that he has also done labs for Dr Giron has also had a shot in the R shoulder from pain management and this has really helped the pain and the movement in the shoulderOV 02/07/2021:Here for his routine aptHe is doing very wellHe did do the labs and is here to review theseOV 06/08/2021:Here for his routine aptHe feels that he does have a URI, sx of cough, dry, no fevers, no chest pain or SOB, no blood in sputumNo rash, no wheezingNo exposure to COVID 19 and he has had his COVID 19 vaccine doneHe did do the labs on 05/26/2021Here for his MWVOV 10/12/2021:Here for his routine aptHe is doing wellNo new labs notedWnats to see ortho as he has alexandrea knee pain, does not see pain management nowOV 03/01/2022:Here for his routine aptHe is doing very well, he did see Dr Marquis and did have shots in the knees but was told to lose weightHe did see Dr Cisneros IJ alsoNeeds to do labsOV 08/30/2022:Here for his f/u apt, he is doing well today, he did 08/24/2022 OV 01/01/2023:Here for his f/u apt, he is doing well OV 05/09/2023: Here for his routine apt, is doing well today, labs done on 05/08/2023 OV 08/29/2023: Here for his f/u apt, he is doing well today, he did do thelabs OV 10/08/2023: Here for his Mounjaro training, he is doing very well now OV 01/02/2024: Here for his routine apt, he is doing well, and states that he has tolerated his Mounjaro very well OV 05/07/2024: Here for his f/u apt, he is doing very well today, he has not done his labs, but he would like to get his disability paperwork done OV 08/06/2024: Here for his f/u apt, he is doing very well, he did see Dr Allred and is now to get another imaging done as his PSA was again elevated OV 11/03/2024: Here for his f/u apt, he is doing well today, he is here with his significant other, states that he is now diagnosed with prostate cancer Walter Gonzalez MD [address] [place] [address] [address], [address], [place], [address], [place] [facility] [employer] [facility] 11/03/2024 18:17:50
--- OUTSIDE RECORDS SUMMARY | 2024-11-30 15:42 | XMS_ITS | Clinical Summary ---
Author Organization [facility] Address [address] [place] [address] [place] [address] Care Team Providers Care Human Services Professional Name Role Phone Unavailable Primary Care Provider Unavailabl e Allergies No known active allergies Medications albuterol sulfate HFA 90 mcg/actuation aerosol inhaler Take 2 Puffs by inhalation every 4 hours as needed for Other (See Comment). Active tadalafil (CIALIS) 5 mg tablet Take 1 Tablet by mouth daily. 4 Active tamsulosin (FLOMAX) 0.4 mg capsule Take 1 Capsule by mouth daily. 5 Active tirzepatide (Mounjaro) 2.5 mg/0.5 mL Pen Injector Inject 2.5 mg by subcutaneous injection every 7 days. 4 Active metFORMIN (GLUCOPHAGE) 500 mg tablet Take 1 Tablet by mouth 2 times daily. 3 Active lisinopriL (PRINIVIL) 20 mg tablet Take 20 mg by mouth daily. 3 Active furosemide (LASIX) 40 mg tablet Take 40 mg by mouth daily. 3 Active gabapentin (NEURONTIN) 600 mg tablet Take 1 Tablet by mouth 3 times daily. Active fluticasone-ume clidinium-vilan terol (TRELEGY ELLIPTA) 100-62.5-25 mcg Disk with Device Take 1 Puff by inhalation daily. Active ergocalciferol (VITAMIN D2) 50,000 unit capsule Take 1 Capsule by mouth every 7 days. 4 Active Active Problems No known active problems Encounters Date Type Department Care Team Description 11/27/2024 Orders Only [facility] Oncology and Hematology - [place] [address] [place] [address] Jesse Augustin MD 11/25/2024 Orders Only [facility] Oncology and Hematology - [place] [address] [place] [address] Jesse Augustin MD 11/25/2024 External Device Data [facility] ABSTRACTION Provider, Abstract 11/24/2024 External Device Data [facility] ABSTRACTION Provider, Abstract 11/24/2024 External Device Data [facility] ABSTRACTION Provider, Abstract 11/23/2024 Orders Only [facility] Oncology and Hematology - [place] [address] [place] [address] Jesse Augustin MD 11/20/2024 1:30 PM [employer] TECHNICIAN Office Visit [facility] Oncology and Hematology - [place] [address] [place] [address] Jesse Augustin MD Prostate cancer (CMS/HCC) (Primary Dx) from Last 3 Months Family History Medical History Relation Name Comments No Known Problems Brother 1 No Known Problems Brother 2 Diabetes Brother 3 Heart Disease Brother 3 Kidney Disease Brother 3 No Known Problems Child Heart Disease Father No Known Problems Mother Diabetes Sister 1 Hypertension Sister 1 No Known Problems Sister 2 No Known Problems Sister 3 No Known Problems Sister 4 Diabetes Sister 5 Heart Disease Sister 5 Relation Name Status Comments Brother 1 Alive Brother 2 Alive Brother 3 Child Alive Father Mother Sister 1 Alive Sister 2 Alive Sister 3 Alive Sister 4 Alive Sister 5 Social History Tobacco Use Types Packs/Day Years Used Date Smoking Tobacco: Every Day Cigarettes 0.5 49.2 Started: 09/23/1975 Smokeless Tobacco: Never Tobacco Cessation:Ready to Q uit: Not Asked; Counseling Given: Not Answered Alcohol Use Standard Drinks/Week Comments Never 0 (1 standard drink = 0.6 oz pur e alcohol) Sex and Gender Information Value Date Recorded Sex Assigned at Not on file Legal Sex Male 6:44 PM [employer] TECHNICIAN Gender Identity Not on file Sexual Orientation Not on file Last Filed Vital Signs Vital Sign Reading Time Taken Comments Blood Pressure 139/84 11/20/2024 1:58 PM [employer]ASS TECHNICIAN Pulse 86 11/20/2024 1:58 PM [employer]ASS TECHNICIAN Temperature 36.8 C (98.3 F) 11/20/2024 1:58 PM [employer] GLASS TECHNICIAN Respiratory Rate 15 11/20/2024 1:58 PM [employer] GLASS TECHNICIAN Oxygen Saturation 95% 11/20/2024 1:58 PM AUT[employer] GLASS TECHNICIAN Inhaled Oxygen Concentration - - Weight 129.9 kg (286 lb 6.4 oz) 11/20/2024 1:58 PM AUT[employer] GLASS TECHNICIAN Height 177.8 cm (5' 10 ) 11/20/2024 1:58 PM [employer] GLASS TECHNICIAN Body Mass Index 41.09 11/20/2024 1:58 PM AUTO GLASS TECHNICIAN Plan of Treatment Upcoming Encounters Date Type Department Care Team (Late st Contact Info) Description 12/16/2024 2:15 PM CDT Office Visit [facility] Oncology and Hematology [facility] [address] [facility] [address] [place] [address] Jesse Augustin MD [address] [facility] [address] [place] [address] Health Maintenance Due Date Last Done Comments DIABETES ANNUAL FOOT EXAM 1978 DIABETES ANNUAL RETINAL EXAM 1978 DIABETES MICROALBUMIN ANNUAL SCREEN 1978 LDL CHOLESTEROL ANNUAL 1978 DTAP/TDAP/TD VACCINES (1 - Tdap) 1979 COLORECTAL SCREENING 2005 Colorectal Cancer Screening 2005 FIT-DNA Q 3 years 2005 FIT/FOBT Q 1 year 2005 Flex Sig/CT Colonography Q 5 years 2005 Lung Cancer Screening 2010 ZOSTER VACCINE (1 of 2) 2010 RSV VACCINE (60+ or ) (1 - Risk 60-74 years 1-dose series) 2020 Medicare [place] ([place]) Preventative Visit/Annual Wellness Visit 09/23/2024 01/02/2024, 01/01/2023 DIABETES HBA1C Q 6 MONTHS 11/23/2024 05/26/2024 Abdominal Aortic Aneurysm (A AA) Screening Completed 07/01/2018, 02/07/2018 INFLUENZA VACCINE Completed 08/06/2024, , 08/30/2022, Additional history exists Procedures Procedure Name Priority Date/Time Associated Diagnosis Comments PSA Routine 11/20/2024 9:58 AM AUTO GLASS TECHNICIAN CBC WITH AUTODIFFERENTIAL Routine 11/20/2024 9:53 AM AUTO GLASS TECHNICIAN TESTOSTERONE, TOTAL Routine 11/20/2024 8 :39 AM AUTO GLASS TECHNICIAN MRA PELVIS W WO CONTRAST Routine 025 10:42 AM AUTO GLASS TECHNICIAN CBC WITH DIFFERENTIAL Routine 11/02/2024 10:46 AM AUTO GLASS TECHNICIAN from Last 3 Months Results * PSA (11/20/2024 9:58 AM AUTO GLASS TECHNICIAN) Blood us Jesse Augustin MD CHEMISTRY ORDERABLES Final Resu lt * CBC WITH AUTODIFFERENTIAL (11/20/2024 9:53 AM AUTO GLASS TECHNICIAN) Blood us Jesse Augustin MD HEMATOLOGY ORDERABLES Final Res ult * TESTOSTERONE, TOTAL (11/20/2024 8:39 AM AUTO GLASS TECHNICIAN) Blood us Jeses Augustin MD CHEMISTRY ORDERABLES Final Resu lt * MRA PELVIS W WO CONTRAST (11/03/2024 10:42 AM AUTO GLASS TECHNICIAN) Anatomical Region Laterality Modality Pelvis Other us Jesse Augustin MD MR ORDERABLES Final Result * CBC WITH DIFFERENTIAL (11/02/2024 10:46 AM AUTO GLASS TECHNICIAN) Blood us Jesse Augustin MD HEMATOLOGY ORDERABLES Final Res ult from Last 3 Months Insurance MEDICARE PART A AND B [facility] AAR [id number] [address] [facility] [id number]
--- OUTSIDE RECORDS SUMMARY | 2024-11-30 15:42 | XMS_ITS | Patient Health Summary ---
Author Organization [facility] Address [address] [place] [address] Care Team Providers Care Senior Analytical Chemist Name Role Phone Brody Goznalez MD Primary Care Provider Note from [facility],non-owned Affiliates and Associated Physician Practices is amultiple site organization consisting of ambulatory clinics and hospital sitesin [place], [place], [place] and [place]. This disclosure is being madepursuant to the Care Everywhere program and may not contain all information available regarding this patient. Last updated 18.[facility] Allergies No known active allergies Medications * Be aware that medications may not be up to date on this document. Alwaysverify current medications with the patient. * sertraline (ZOLOFT) 12.5 MG tablet Take 4 (four) Half Tablet by mouth once daily * gabapentin (NEURONTIN) 600 MG tablet Take 1 (one) tablet by mouth 3 times daily * albuterol HFA (PROVENTIL;VENTOLIN;PROAIR) 108 (90 BASE) MCG/ACT inhaler (Started 02/27/2018) Inhale 2 puffs by mouth every 4 hours as needed * lisinopril (PRINIVIL; ZESTRIL) 40 MG tablet(Started 02/18/2018) Take 1 (one) tablet by mouth once daily * spironolactone (ALDACTONE) 50 MG tablet(Started 01/19/2021) Take 1 tablet by mouth once daily 3 refills by 01/19/2022 * furosemide (LASIX) 20 MG tablet(Started 01/19/2021) Take 1 tablet by mouth once daily 3 refills by 01/19/2022 * metFORMIN (GLUCOPHAGE) 500 MG tablet Take 1 (one) tablet by mouth 2 times daily with morning and evening meal * tadalafil (CIALIS) 5 MG tablet Take 1 (one) tablet by mouth once as needed * Bxenuepjivs-Cvvjplxgc-Pkdyyg (TRELEGY ELLIPTA) 100-62.5-25 MCG/INH Inhale 1 (one) puff by mouth once daily * tamsulosin (Flomax) 0.4 MG capsule Take 1 (one) capsule by mouth once daily * Mounjaro 5 MG/0.5ML injection(Started 12/02/2023) Inject 5 (five) mg subcutaneously every 7 days * vitamin D, ergocalciferol, (Drisdol) 1.25 MG (39358 UT) capsule Take 1 (one) capsule by mouth every 7 days * sodium chloride 1 GM tablet Take 1 (one) tablet by mouth once daily Active Problems Problem Noted Date Diagnosed Date Osteoarthritis of knee 02/06/2020 Obesity 02/06/2020 Cirrhosis (prior HCV + [facility] risks) 06/30/2018 Right upper quadrant abdominal pain 05/20/2018 Chronic pain COPD (chronic obstructive pulmonary disease) Depression Hypertension Neuropathy Sleep apnea Spinal stenosis Resolved Problems Problem Noted Date Diagnosed Date Resolved Date History of hepatitis C 02/05 Social History Tobacco Use Types Packs/Day Years Used Date Smoking Tobacco: Every Day Cigarettes 1 50 Smokeless Tobacco: Never Tobacco Cessation:Ready to Q uit: Not Asked; Counseling Given: Not Answered Alcohol Use Standard Drinks/Week Comments Yes 0 (1 standard drink = 0.6 oz pur e alcohol) Rarely. Sex and Gender Information Value Date Recorded Sex Assigned at Not on file Gender Identity Not on file Sexual Orientation Not on file Last Filed Vital Signs Vital Sign Reading Time Taken Comments Blood Pressure 117/72 06/22/2024 10:24 AM CDT Pulse 102 06/22/2024 10:24 AM CDT Temperature 36.7 C (98.1 F) 06/22/2024 10:24 AM CDT Respiratory Rate 14 06/22/2024 10:24 AM CDT Oxygen Saturation 98% 06/22/2024 10:24 AM CDT Inhaled Oxygen Concentration - - Weight 112.5 kg (248 lb) 06/22/2024 10:24 AM CDT Height 177.8 cm (5' 10 ) 06/22/2024 10:24 AM CDT Body Mass Index 35.58 06/22/2024 10:24 AM CDT Procedures * PT-INR [facility](Performed 06/22/2024) Performed for Other cirrhosis of liver (HCC) * COMPREHENSIVE METABOLIC PANEL(Performed 06/22/2024) Performed for Other cirrhosis of liver (HCC) * CBC W AUTO DIFFERENTIAL(Performed 06/22/2024) Performed for Other cirrhosis of liver (HCC) * ALPHA FETOPROTEIN BLOOD TUMOR MARKER(Performed 06/22/2024) Performed for Other cirrhosis of liver (HCC) * MT LIVER ELASTOGRAPHY(Performed 06/22/2024) Performed for Cirrhosis (prior HCV + DAWKINS risks) * MT LIVER ELASTOGRAPHY(Performed 01/21/2023) Performed for Other cirrhosis of liver (HCC) * ALPHA FETOPROTEIN BLOOD TUMOR MARKER(Performed 01/15/2023) * PT-INR(Performed 01/15/2023) * CBC W AUTO DIFFERENTIAL(Performed 01/15/2023) * COMPREHENSIVE METABOLIC PANEL(Performed 01/15/2023) * ALPHA FETOPROTEIN BLOOD TUMOR MARKER(Performed 01/17/2022) * PT-INR(Performed 01/17/2022) * CBC W AUTO DIFFERENTIAL(Performed 01/17/2022) * COMPREHENSIVE METABOLIC PANEL(Performed 01/17/2022) * ALPHA FETOPROTEIN BLOOD TUMOR MARKER(Performed 09/11/2021) * PT-INR(Performed 09/11/2021) * CBC W AUTO DIFFERENTIAL(Performed 09/11/2021) * COMPREHENSIVE METABOLIC PANEL(Performed 09/11/2021) * PT-INR(Performed 03/31/2021) Performed for Cirrhosis (prior HCV + DAWKINS risks) * COMPREHENSIVE METABOLIC PANEL(Performed 03/31/2021) Performed for Cirrhosis (prior HCV + DAWKINS risks) * CBC W AUTO DIFFERENTIAL(Performed 03/31/2021) Performed for Cirrhosis (prior HCV + DAWKINS risks) * ALPHA FETOPROTEIN BLOOD TUMOR MARKER(Performed 03/31/2021) Performed for Cirrhosis (prior HCV + DAWKINS risks) * FERRITIN(Performed 09/20/2020) Performed for Other cirrhosis of liver (HCC) * BASIC METABOLIC PANEL (CALCIUM TOTAL)(Performed 09/20/2020) Performed for Other cirrhosis of liver (HCC) * JZCHO-9-UCLKMYBFWOJ BLOOD PHENOTYPING PANEL(Performed 09/20/2020) Performed for Cirrhosis (prior HCV + DAWKINS risks) * ZNNHM-2-NTRAOXUIWON BLOOD(Performed 09/20/2020) Performed for Cirrhosis (prior HCV + DAWKINS risks) * TRANSFERRIN(Performed 09/20/2020) Performed for Cirrhosis (prior HCV + DAWKINS risks) * IRON BLOOD(Performed 09/20/2020) Performed for Cirrhosis (prior HCV + DAWKINS risks) * HEPATITIS B CORE ANTIBODY TOTAL(Performed 09/20/2020) Performed for Encounter for screening for other viral diseases , Cirrhosis (prior HCV + DAWKINS risks) * HEPATITIS B SURFACE ANTIGEN W RFLX CONFIRMATION(Performed 09/20/2020) Performed for Encounter for screening for other viral diseases , Cirrhosis (prior HCV + DAWKINS risks) * HEPATITIS B SURFACE ANTIBODY(Performed 09/20/2020) Performed for Encounter for screening for other viral diseases , Cirrhosis (prior HCV + DAWKINS risks) * HEPATITIS A ANTIBODY(Performed 09/20/2020) Performed for Cirrhosis (prior HCV + DAWKINS risks) * US ABDOMEN LIMITED(Performed 09/20/2020) Performed for Cirrhosis (prior HCV + DAWKINS risks) * MT ED EGD FLEX TRANSORAL DX(Performed 07/26/2020) Performed for Other cirrhosis of liver (HCC) * EGD(Performed 07/26/2020) * COMPREHENSIVE METABOLIC PANEL(Performed 02/08/2020) Performed for Cirrhosis of liver without ascites, unspecified hepatic cirrhosis type (HCC) * CBC W AUTO DIFFERENTIAL(Performed 02/08/2020) Performed for Cirrhosis of liver without ascites, unspecified hepatic cirrhosis type (HCC) * CT ABDOMEN MULTI PHASE W CONT(Performed 08/25/2019) Performed for Cirrhosis of liver without ascites, unspecified hepatic cirrhosis type (HCC) * CREATININE BLOOD - POCT (IP) [facility](Performed 08/25/2019) Performed for Cirrhosis of liver without ascites, unspecified hepatic cirrhosis type (HCC) * COMPREHENSIVE METABOLIC PANEL(Performed 02/20/2019) Performed for Cirrhosis of liver without ascites, unspecified hepatic cirrhosis type (HCC) * CBC W AUTO DIFFERENTIAL(Performed 02/20/2019) Performed for Cirrhosis of liver without ascites, unspecified hepatic cirrhosis type (HCC) * CT ABDOMEN MULTI PHASE W CONT(Performed 08/18/2018) Performed for Right upper quadrant abdominal pain * CREATININE BLOOD - POCT (IP) [facility](Performed 08/18/2018) Performed for Right upper quadrant abdominal pain * COMPREHENSIVE METABOLIC PANEL(Performed 06/30/2018) Performed for Right upper quadrant abdominal pain * CBC W AUTO DIFFERENTIAL(Performed 06/30/2018) Performed for Right upper quadrant abdominal pain * PULSE OXIMETRY - POINT OF CARE (AMB)(Performed 02/27/2018) Performed for COPD exacerbation (HCC) * HEPATITIS C REAL-TIME PCR QUANTASURE(Performed 09/20/2015) * CBC W AUTO DIFFERENTIAL(Performed 09/20/2015) * COMPREHENSIVE METABOLIC PANEL(Performed 09/20/2015) * HEPATITIS C REAL-TIME PCR QUANTASURE(Performed 03/07/2015) * COMPREHENSIVE METABOLIC PANEL(Performed 03/07/2015) * CBC W AUTO DIFFERENTIAL(Performed 03/07/2015) * HEPATITIS C RNA QUANTITATIVE(Performed 06/18/2014) * HEPATITIS C FIBROSURE(Performed 06/18/2014) * COMPREHENSIVE METABOLIC PANEL(Performed 06/18/2014) * CBC W AUTO DIFFERENTIAL(Performed 06/18/2014) * CBC W AUTO DIFFERENTIAL(Performed 06/18/2014) * HEPATITIS C GENOTYPE(Performed 11/16/2013) * INTERLEUKIN-28B POLYMORPHISM GENOTYPE(Performed 11/16/2013) * HEPATITIS C RNA QUANTITATIVE(Performed 11/16/2013) * SMOOTH MUSCLE ANTIBODY(Performed 11/16/2013) * SHELDON BLOOD SCREEN(Performed 11/16/2013) * ALPHA FETOPROTEIN BLOOD TUMOR MARKER(Performed 11/16/2013) * FERRITIN(Performed 11/16/2013) * T4 FREE(Performed 11/16/2013) * COMPREHENSIVE METABOLIC PANEL(Performed 11/16/2013) * CBC W AUTO DIFFERENTIAL(Performed 11/16/2013) * PT-INR [facility](Performed 11/16/2013) * GROSS + MICRO EXAM(Performed 01/29/2008) Results * PT-INR [facility] (06/22/2024 12:06 PM CDT) Only the most recent of2 resultswithin the time period is included. PT 13.2 12.1 - 14.8 Seconds 06/22/2024 1:16 PM CDT [facility] INR 1.0 See Comment 06/22/2024 1:16 PM CDT [facility] Comment:The suggested therap eutic range for standard coumadin (warfarin) therapy is an INR of 2.0-3.0. For high-risk patients (Mechanical Mitral Valve Prosthesis, etc.), the suggested prophylactic therapeutic range is an INR of 2.5-3.5. Blood BLOOD SPECIMEN / Unknown Lab Venipuncture / Unknown 06/22/2024 12:06 PM CDT 06/22/2024 12:50 PM CDT Luís Grider MD LAB - COAG ULATION ORDERABLES Performing Organization Address [facility] Co de Phone Number [facility] [address] [place] [address], [facility] [phone] * ALPHA FETOPROTEIN BLOOD TUMOR MARKER (06/22/2024 12:06 PM CDT) Only the most recent of6 resultswithin the time period is included. [facility] Alpha-Fetoprote in Tumor Marker 5.7 <=8.3 ng/mL 06/22/2024 1:39 PM CDT [facility] Comment: AFP values will vary depending on testing procedure used. Results are not comparable across different methods. AFP values obtained by [facility] using an [place] Alinity Immunoassay. Blood BLOOD SPECIMEN / Unknown Lab Venipuncture / Unknown 06/22/2024 12:06 PM CDT 06/22/2024 12:50 PM CDT Luís Grider MD LAB - CHEM ISTRY ORDERABLES Performing Organization Address [facility] Co de Phone Number [facility] [address] [place] [id number], [facility] [phone] * CBC W/ DIFFERENTIAL (06/22/2024 12:06 PM CDT) Only the most recent of13 resultswithin the time period is included. [facility] WBC 7.3 4.0 - 10.7 x10E9/L 06/22/2024 1:05 PM CDT [facility] RBC Count 4.74 4.30 - 5.80 x10E12/L 06/22/2024 1:05 PM CDT [facility] Hemoglobin 13.7 13.3 - 17.5 g/dL 06/22/2024 1:05 PM CDT [facility] Hematocrit 41.0 38.7 - 51.1 % 06/22/2024 1:05 PM [facility] MCV 86.5 80.0 - 98.0 fL 06/22/2024 1:05 PM [facility] MCH 28.9 26.7 - 33.6 pg 06/22/2024 1:05 PM [facility] MCHC 33.4 31.7 - 36.3 g/dL 06/22/2024 1:05 PM [facility] RDW-CV 13.5 11.3 - 14.8 % 06/22/2024 1:05 PM [facility] Platelet Count 236 150 - 420 x10E9/L 06/22/2024 1:05 PM [facility] MPV 9.2 7.8 - 11.4 fL 06/22/2024 1:05 PM [facility] Neutrophil % 63.2 41.0 - 74.0 % 06/22/2024 1:05 PM [facility] Lymphocyte % 27.3 17.0 - 47.0 % 06/22/2024 1:05 PM [facility] Monocyte % 6.1 3.0 - 11.0 % 06/22/2024 1:05 PM [facility] Eosinophil % 2.1 0.0 - 7.0 % 06/22/2024 1:05 PM [facility] Basophil % 0.6 0.0 - 1.6 % 06/22/2024 1:05 PM [facility] Immature Granulocytes % 0.7 0.0 - 1.0 % 06/22/2024 1:05 PM [facility] Neutrophil Absolute 4.59 1.60 - 7.50 x10E9/L 06/22/2024 1:05 PM [facility] Lymphocyte Absolute 1.98 1.00 - 4.40 x10E9/L 06/22/2024 1:05 PM [facility] Monocyte Absolute 0.44 0.15 - 1.00 x10E9/L 06/22/2024 1:05 PM [facility] Eosinophil Absolute 0.15 0.00 - 0.60 x10E9/L 06/22/2024 1:05 PM [facility] Basophil Absolute 0.04 0.00 - 0.13 x10E9/L 06/22/2024 1:05 PM [facility] Blood BLOOD SPECIMEN / Unknown Lab Venipuncture / Unknown 06/22/2024 12:06 PM CDT 06/22/2024 12:51 PM CDT Luís Grider MD LAB - CHRISSIE TOLOGY ORDERABLES [facility] [address] [place] [address], [facility] [phone] * (ABNORMAL) COMPREHENSIVE METABOLIC PANEL (06/22/2024 12:06 PM CDT) Only the most recent of12 resultswithin the time period is included. BUN 17 7 - 26 mg/dL 06/22/2024 1:22 PM [facility] Creatinine 0.97 0.71 - 1.16 mg/dL 06/22/2024 1:22 PM [facility] Sodium 139 136 - 145 mmol/L 06/22/2024 1:22 PM [facility] Potassium 4.2 3.5 - 4.5 mmol/L 06/22/2024 1:22 PM [facility] Chloride 105 98 - 107 mmol/L 06/22/2024 1:22 PM [facility] CO2 26 22 - 29 mmol/L 06/22/2024 1:22 PM [facility] Glucose 103 70 - 115 mg/dL 06/22/2024 1:22 PM [facility] Calcium 9.0 8.4 - 10.2 mg/dL 06/22/2024 1:22 PM [facility] Protein Total 7.2 6.0 - 8.3 g/dL 06/22/2024 1:22 PM [facility] Albumin 3.9 3.4 - 5.0 g/dL 06/22/2024 1:22 PM [facility] Bilirubin Total 0.4 0.2 - 1.2 mg/dL 06/22/2024 1:22 PM [facility] Alkaline Phosphatase 94 40 - 150 U/L 06/22/2024 1:22 PM [facility] ALT 15 5 - 55 U/L 06/22/2024 1:22 PM [facility] AST 19 5 - 34 U/L 06/22/2024 1:22 PM [facility] Anion Gap 8 6 - 16 06/22/2024 1:22 PM [facility] BUN/Creatinine Ratio 18 7 - 23 06/22/2024 1:22 PM [facility] Osmolality Calculated 290 275 - 295 mOsm/kg 06/22/2024 1:22 PM [facility] Albumin/Globulin Ratio 1.2 1.1 - 2.3 06/22/2024 1:22 PM [facility] eGFR by CKD-EPI 88(L) >=90 mL/min/1.7 3 m2 06/22/2024 1:22 PM [facility] Blood BLOOD SPECIMEN / Unknown Lab Venipuncture / Unknown 06/22/2024 12:06 PM CDT 06/22/2024 12:51 PM CDT Luís Grider MD LAB - CHEM ISTRY ORDERABLES [facility] [address] [place] [address], [facility] [phone] * PROC FIBROSCAN (06/22/2024 10:02 AM CDT) Narrative Luís Grider MD - 06/22/2024 10:02 AM CDT Luís Grider MD 06/24/2024 4:18 PM Diagnosis: Other cirrhosis of liver (HCC) RN verified patient is NPO for prior 3 hours. Procedure explained. Date of Exam: 06/22/2024 Liver Stiffness: (LSM, kPa) median: 14.9 IQR/Median% (ideally < 30%): 6% CAP (controlled attenuation parameter): 230 Technical Difficulty: None Ordering Provider: Luís Badillo MD Phone Fax Fibroscan interpretation: I have personally reviewed the Fibroscan report and associated tracings. The calculated Liver Stiffness Measurement (LSM, kPa) indicates that: The probability of advanced liver fibrosis is: moderate. The loss of ultrasound signal, (controlled attenuation parameter, CAP [dB/m]), indicates that the probability of hepatic steatosis is: low. Luís Badillo MD The following criteria are used to indicate the probability of advanced (stage 3-4) fibrosis: < 7.0 kPa: low 7.0-8.9 kPa: low to moderate 9.0-14.9 kPa: moderate 15-20 kPa: high > 20 kPa: very high Liver stiffness > 20 kPa is also associated with a high probability of complications of portal hypertension including varices and ascites. Liver stiffness > 50 kPa is associated with a high risk of variceal bleeding. These interpretations are based on the following published data: Bayron PJ, Jeri M, Carmen M, et al. Accuracy of FibroScan controlled attenuation parameter and liver stiffness measurement in assessing steatosis and fibrosis in patients with nonalcoholic fatty liver disease. Gastroenterology 2019;156:3864-1095. Danyel MS, Ely R, Van Natta ML, et al. Vibration-controlled transient elastography to assess fibrosis and steatosis in patients with nonalcoholic fatty liver disease. Clin Gastroenterol Hepatol 2019;17:156-163. Note that scores have been developed that incorporate the Fibroscan liver stiffness measurement from large cohorts of patients with liver biopsies to further refine the ability of Fibroscan to identify patients with MASH and advanced fibrosis. These include the FAST (Fibroscan-AST) score (James, 202) and the Agile3+ and Agile4 scores (Miley, 202). James TA, Van Natta ML, Grecia M, Chas A, et al. Validation of the accuracy of the FAST score for detecting patients with at-risk nonalcoholic steatohepatitis (DAWKINS) in a [place] cohort and comparison to other non-invasive algorithms. PLoS ONE (2021) 17: [id number]. Miley COLLAZO, Chelsie J, Mary RASHID, et al. Enhanced diagnosis of advanced fibrosis and cirrhosis in individuals with NAFLD using FibroScan-based Agile scores. J Hepatol (2022) 78: 247-259. Fibroscan LSM can also be used with laboratory parameters without formulas to assess prognosis. According to the Baveno-VII criteria (Mcgowan, 202), Fibroscan LSM ?15 kPa plus a platelet count of ?[id number]/L rules out clinically significant portal hypertension (sensitivity and negative predictive value >90%) in patients with compensated advanced chronic liver disease. Mcgowan R, Elina J, Cathy G, Kelsey T, Bernadette Piedra on behalf of the [facility] VII Faculty. Baveno VII--Renewing consensus in portal hypertension. J Hepatol (2021) 76: 959-974 Assessing the likelihood of advanced fibrosis in patients with intermediate liver stiffness measurement (LSM) by Fibroscan (e.g., 8-15 kPa) can be improved by also calculating the FIB-4 score (Shaunae et al. Hepatology Communications 2019;3:4629-1520) or NAFLD Fibrosis score (Gee et al. Clinical Gastroenterology and Hepatology 2019;17:6245-9851 using routine clinical data. Note: 1. Fibroscan cannot reliably identify earlier stages of fibrosis (ie distinguish F0 from F1 and F2) and thus a histologic stage cannot be predicted from the Fibroscan reading. 2. Liver stiffness can be increased by factors other than fibrosis including passive congestion, infiltrative processes, active alcoholism, recent moderate alcohol consumption in the 2 weeks before the exam, biliary obstruction and marked inflammation. The interpretation of the Fibroscan result provided above may not have taken such clinical factors into account. Disease etiology also influences Fibroscan cutoff values for fibrosis stages and the following cutoffs have been proposed (Kylie et al, Clin Gastro Hepatol 2015; 13:27-36): Cutoffs for Stage 3 and Stage 4 fibrosis respectively: Hepatitis B: >9 and >11.7 kPa Hepatitis C: >9.5 and >12.5 kPa HCV-HIV: >11 and >14 kPa Cholestatic liver diseases: >10 and >17.9 kPa MASLD/MASH: >10 and >14 kPa CAP estimates of steatosis: normal <200 dB/m mild 200 to 250 dB/m moderate 250-290 dB/m substantial > 290 dB/m (Note that Fibroscan is not a quantitative measure of liver fat.) These criteria are estimates and may change as additional supporting data becomes available. (This additional interpretive data was last updated 01/26/23.) [email or web address] Luís Grider MD PROCEDURE/ MINOR SURGICAL ORDERABLES * PROC FIBROSCAN (01/21/2023 10:25 AM CDT) Narrative Luís Badillo MD - 01/21/2023 10:25 AM CDT Luís Badillo MD 01/23/2023 3:11 PM Diagnosis: DAWKINS RN verified patient has no implanted devices and NPO for prior 3 hours. Date of Exam: 01/21/2023 Liver Stiffness: (LSM, kPa) median: 19.8 IQR (interquartile range): 2.5 IQR/Median% (ideally < 30%): 13% CAP (controlled attenuation parameter): 377 Technical Difficulty: None Ordering Provider: Dr. Badillo Phone Fax Fibroscan interpretation: I have personally reviewed the Fibroscan report and associated tracings. The calculated Liver Stiffness Measurement (LSM, kPa) indicates that: The probability of advanced liver fibrosis is: high. The loss of ultrasound signal, (controlled attenuation parameter, CAP [dB/m]), indicates that the probability of hepatic steatosis is: high. Luís Badillo MD The following criteria are used to indicate the probability of advanced (stage 3-4) fibrosis: < 7.0 kPa: low 7.0-8.9 kPa: low to moderate 9.0-14.9 kPa: moderate 15-20 kPa: high > 20 kPa: very high Liver stiffness > 20 kPa is also associated with a high probability of complications of portal hypertension including varices and ascites. Liver stiffness > 50 kPa is associated with a high risk of variceal bleeding. These interpretations are based on the following published data: Bayron PJ, Jeri M, Carmen M, et al. Accuracy of FibroScan controlled attenuation parameter and liver stiffness measurement in assessing steatosis and fibrosis in patients with nonalcoholic fatty liver disease. Gastroenterology 2019;156:8040-6575. Danyel MS, Ely R, Van Rodrigo ML, et al. Vibration-controlled transient elastography to assess fibrosis and steatosis in patients with nonalcoholic fatty liver disease. Clin Gastroenterol Hepatol 2019;17:156-163. Note: 1. Fibroscan cannot reliably identify earlier stages of fibrosis (ie distinguish F0 from F1 and F2) and thus a histologic stage cannot be predicted from the Fibroscan reading. 2. Assessing the likelihood of advanced fibrosis in patients with indeterminate liver stiffness measurement (LSM) by Fibroscan (e.g., 8-15 kPa) can be improved by also calculating the FIB4 score (Kiki et al. Hepatology Communications 2019;3:7542-0563) or NAFLD Fibrosis score (Gee et al. Clinical Gastroenterology and Hepatology 2019;17:5017-0876. from routine clinical data. 3. Liver stiffness can be increased by factors other than fibrosis including passive congestion, infiltrative processes, active alcoholism, biliary obstruction and marked inflammation. The interpretation of the Fibroscan result provided above may not have taken such clinical factors into account. Disease etiology also influences Fibroscan cutoff values for fibrosis stages and the following cutoffs have been proposed (Kylie et al, Clin Gastro Hepatol 2015; 13:27-36): Cutoffs for Stage 3 and Stage 4 fibrosis respectively: Hepatitis B: >9 and >11.7 kPa Hepatitis C: >9.5 and >12.5 kPa HCV-HIV: >11 and >14 kPa Cholestatic liver diseases: >10 and >17.9 kPa NAFLD/DAWKINS: >10 and >14 kPa CAP estimates of steatosis: normal <200 dB/m mild 200 to 250 dB/m moderate 250-290 dB/m substantial > 290 dB/m (Note that Fibroscan is not a quantitative measure of liver fat.) These criteria are estimates and may change as additional supporting data becomes available. [email or web address] Luís Grider MD PROCEDURE/ MINOR SURGICAL ORDERABLES * PT-INR (01/15/2023 10:14 AM CDT) Only the most recent of4 resultswithin the time period is included. INR 1.0 [facility] Comment: Reference Range 0.9-1.1 Moderate-intensity Warfarin Therapy 2.0-3.0 Higher-intensity Warfarin Therapy 3.0-4.0 PT 10.1 9.0 - 11.5 sec [facility] Comment: For additional information, please refer to [email or web address]/faq/[email or web address] (This link is being provided for informational/ educational purposes only.) Test Performed at: [facility] [address] TIARA FRANCISCO MD 01/15/2023 10:1 4 AM CDT 01/15/2023 10:14 AM CDT Luís Grider MD LAB - COAG ULATION ORDERABLES Performing Organization Address City/[facility]/ZIP Co de Phone Number [facility] [address] [place] [phone] * [id number]-[id number] BLOOD PHENOTYPING PANEL (09/20/2020 9:15 AM MOLDING TECHNICIAN) Dcbez-4-Miovfqfdz in Phenotype M1S 09/22/2020 8:18 AM MOLDING TECHNICIAN [employer] ([facility]) Comment: 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 The M allele protein product is a normal variant. The S allele protein product is a deficiency variant that is associated with a less severe deficiency (approximately 60 percent of normal serum concentrations) of the odefj-9-zdacmzbq inhibitor than the classic Z variant (approximately 15 percent of normal serum concentrations). Individuals with this phenotype are rarely at risk for development of jncng-3-tfjapzdi inhibitor deficiency-related hepatic or pulmonary disease. Caution in interpretation is advised if the patient has been transfused in the previous 21 days. Performed By: [facility] [address] [place] [address] Rebar Bender: Theresa Mustafa MD Xrswn-3-Dfqqmirgg in 131 90 - 200 mg/dL 09/22/2020 8:18 AM MOLDING TECHNICIAN [employer] ([facility]) Comment:To convert to umol/L , multiply mg/dL by 0.185 Blood BLOOD SPECIMEN / Unknown Lab Venipuncture / Unknown 09/20/2020 9:15 AM MOLDING TECHNICIAN 09/20/2020 11:05 AM MOLDING TECHNICIAN Luís Grider MD LAB - CHEM ISTRY ORDERABLES Performing Organization Address City/[facility]/ZIP Co de Phone Number [employer] [facility]) [address] * TRANSFERRIN (09/20/2020 9:15 AM MOLDING TECHNICIAN) Transferrin 298 174 - 382 mg/dL 09/20/2020 12:25 PM [facility] Transferrin Saturation % 26 16 - 50 % 09/20/2020 12:25 PM [facility] Blood BLOOD SPECIMEN / Unknown Lab Venipuncture / Unknown 09/20/2020 9:15 AM MOLDING TECHNICIAN 09/20/2020 11:05 AM MOLDING TECHNICIAN Luís Grider MD LAB - CHEM ISTRY ORDERABLES Performing Organization Address City/[facility]/ZIP Co de Phone Number [address] [address], [facility] [phone] * [id number]-[id number] BLOOD (09/20/2020 9:15 AM MOLDING TECHNICIAN) Icmff-8-Ipfzer ypsin 129 90 - 200 mg/dL 09/20/2020 11:44 AM [facility] Blood BLOOD SPECIMEN / Unknown Lab Venipuncture / Unknown 09/20/2020 9:15 AM MOLDING TECHNICIAN 09/20/2020 11:05 AM MOLDING TECHNICIAN Luís Grider MD LAB - CHEM ISTRY ORDERABLES Performing Organization Address [facility]/ZIP Co de Phone Number [address] [address], [facility] [phone] * BASIC METABOLIC PANEL (CALCIUM TOTAL) (09/20/2020 9:15 AM MOLDING TECHNICIAN) BUN 19 7 - 26 mg/dL 09/20/2020 10:50 AM [facility] Creatinine 1.0 0.6 - 1.2 mg/dL 09/20/2020 10:50 AM [facility] Sodium 143 136 - 145 mmol/L 09/20/2020 10:50 AM [facility] Potassium 4.4 3.5 - 4.5 mmol/L 09/20/2020 10:50 AM [facility] Chloride 103 98 - 107 mmol/L 09/20/2020 10:50 AM [facility] CO2 29 22 - 29 mmol/L 09/20/2020 10:50 AM [facility] Glucose 109 70 - 115 mg/dL 09/20/2020 10:50 AM [facility] Calcium 9.2 8.4 - 10.2 mg/dL 09/20/2020 10:50 AM [facility] Anion Gap 15 8 - 18 09/20/2020 10:50 AM [facility] BUN/Creatinine Ratio 19 7 - 23 09/20/2020 10:50 AM [facility] Osmolality Calculated 299 270 - 300 mOsm/kg 09/20/2020 10:50 AM [facility] eGFR >60 >60 mL/min/1.7 3 m2 09/20/2020 10:50 AM [facility] Blood BLOOD SPECIMEN / Unknown Lab Venipuncture / Unknown 09/20/2020 9:15 AM MOLDING TECHNICIAN 09/20/2020 10:17 AM MOLDING TECHNICIAN Luís Grider MD LAB - CHEM ISTRY ORDERABLES [address] [address], [facility] [phone] * IRON BLOOD (09/20/2020 9:15 AM MOLDING TECHNICIAN) Pathologist [facility] Iron 90 50 - 175 mcg/dL 09/20/2020 12:30 PM [facility] Blood BLOOD SPECIMEN / Unknown Lab Venipuncture / Unknown 09/20/2020 9:15 AM MOLDING TECHNICIAN 09/20/2020 11:05 AM MOLDING TECHNICIAN Luís Grider MD LAB - CHEM ISTRY ORDERABLES [address] [address], [facility] [phone] * HEPATITIS B SURFACE ANTIBODY (09/20/2020 9:15 AM MOLDING TECHNICIAN) Hepatitis B Virus Surface Antibody Non-react robert Non-react robert 09/20/2020 11:54 AM [facility] Comment: < 8 mIU/mL Hepatitis B surface Antibody (HBsAb). Nonreactive for HBsAb - individual is considered not immune to Hepatitis B Virus infection. Hepatitis B Surface Antibody Quantitative 1.5 <8.0 mIU/mL 09/20/2020 11:54 AM MOLDING TECHNICIAN [facility] Comment: Hepatitis B Surface Antibody Numeric Result Interpretation: Nonreactive: <8.0 mIU/mL Indeterminate: 8.0 - 12.0 mIU/mL Reactive: >12.0 mIU/mL Blood BLOOD SPECIMEN / Unknown Lab Venipuncture / Unknown 09/20/2020 9:15 AM MOLDING TECHNICIAN 09/20/2020 11:05 AM MOLDING TECHNICIAN Luís Grider MD LAB - CHEM ISTRY ORDERABLES [address] [address], [facility] [phone] * (ABNORMAL) HEPATITIS B CORE ANTIBODY (09/20/2020 9:15 AM MOLDING TECHNICIAN) HBc Antibody Total Reactive(A ) Non-reacti ve 09/20/2020 12:29 PM MOLDING TECHNICIAN [facility] Blood BLOOD SPECIMEN / Unknown Lab Venipuncture / Unknown 09/20/2020 9:15 AM MOLDING TECHNICIAN 09/20/2020 11:05 AM MOLDING TECHNICIAN Luís Grider MD LAB - CHEM ISTRY ORDERABLES [address] [address], [facility] [phone] * HEPATITIS B SURFACE ANTIGEN W RFLX CONFIRMATION (09/20/2020 9:15 AM MOLDING TECHNICIAN) Hepatitis B Virus Surface Antigen Non-reacti ve Non-reacti ve 09/20/2020 11:54 AM MOLDING TECHNICIAN [facility] Blood BLOOD SPECIMEN / Unknown Lab Venipuncture / Unknown 09/20/2020 9:15 AM MOLDING TECHNICIAN 09/20/2020 11:05 AM MOLDING TECHNICIAN Luís Grider MD LAB - CHEM ISTRY ORDERABLES Performing Organization Address [facility]/ZIP Co de Phone Number [facility] [address] [place] [address], [place] [phone] * (ABNORMAL) HEPATITIS A ANTIBODY (09/20/2020 9:15 AM MOLDING TECHNICIAN) Hepatitis A Virus Antibody Total Positive( A) Negative 09/21/2020 1:42 PM MOLDING TECHNICIAN [employer] ([facility]) Comment: The positive anti-HAV is consistent with recent or remote Hepatitis A infection or antibody response to HAV vaccination. False positive anti-HAV can occur. Performed by [facility], [address] [place] [address] [email or web address], Theresa Mustafa MD, Lab. Director Blood BLOOD SPECIMEN / Unknown Lab Venipuncture / Unknown 09/20/2020 9:15 AM MOLDING TECHNICIAN 09/20/2020 11:05 AM MOLDING TECHNICIAN Luís Grider MD LAB - CHEM ISTRY ORDERABLES Performing Organization Address [facility] Co de Phone Number [employer] ([facility]) [address] [place], [place] [phone] [place] [address] * FERRITIN (09/20/2020 9:15 AM MOLDING TECHNICIAN) Only the most recent of2 resultswithin the time period is included. Ferritin 39 22 - 275 ng/mL 09/20/2020 11:54 AM MOLDING TECHNICIAN [facility] Blood BLOOD SPECIMEN / Unknown Lab Venipuncture / Unknown 09/20/2020 9:15 AM MOLDING TECHNICIAN 09/20/2020 11:05 AM MOLDING TECHNICIAN Luís Grider MD LAB - CHEM ISTRY ORDERABLES Performing Organization Address [facility] Co de Phone Number [facility] [address] [place] [address], [place] [phone] * US ABDOMEN LIMITED (09/20/2020 8:58 AM MOLDING TECHNICIAN) Anatomical Region Laterality Modality Abdomen Ultrasound 09/20/2020 9:00 AM MOLDING TECHNICIAN Impressions 09/20/2020 9:15 AM MOLDING TECHNICIAN IMPRESSION: 1.Hepatic cirrhosis without evidence of discrete observations suggest hepatocellular carcinoma. 2.No evidence of cholelithiasis or acute cholecystitis. Dictated by Josh Collins MD (resident advisor) I, Dr. LEONCIO RESENDIZ have personally reviewed and interpreted this examination/study. This report was electronically signed by LEONCIO RESENDIZ on 09/20/2020 9:15 AM . Narrative 09/20/2020 9:15 AM MOLDING TECHNICIAN EXAMINATION: Limited abdominal sonogram HISTORY: 59-year-old male with history of cirrhosis, HCC screening COMPARISON: CT abdomen multiphase dated 08/25/2019 FINDINGS: Hepatic echotexture is coarsened with a mildly nodular hepatic contour, consistent with cirrhosis. No discrete hepatic mass or intrahepatic biliary dilation is seen. The hepatic veins are patent. The main portal vein is patent and nondilated with hepatopedal flow. No gallstones or pericholecystic fluid is seen. The gallbladder wall is normal in thickness, measuring 3 mm. Sonographic Aguirre's sign is negative. The common bile duct is nondilated, measuring 4 mm. The right kidney measures 10.6 x 4.7 x 5.4 cm. Limited views the right kidney reveal no evidence of nephrolithiasis or hydronephrosis. The spleen measures 13.2 cm in length. The visible pancreas is normal in echogenicity. No ascites is present. Procedure Note Leoncio Resendiz MD - 09/20/2020 EXAMINATION: Limited abdominal sonogram HISTORY: 59-year-old male with history of cirrhosis, HCC screening COMPARISON: CT abdomen multiphase dated 08/25/2019 FINDINGS: Hepatic echotexture is coarsened with a mildly nodular hepatic contour, consistent with cirrhosis. No discrete hepatic mass or intrahepatic biliary dilation is seen. The hepatic veins are patent. The main portal vein is patent and nondilated with hepatopedal flow. No gallstones or pericholecystic fluid is seen. The gallbladder wall is normal in thickness, measuring 3 mm. Sonographic Aguirre's sign is negative. The common bile duct is nondilated, measuring 4 mm. The right kidney measures 10.6 x 4.7 x 5.4 cm. Limited views the right kidney reveal no evidence of nephrolithiasis or hydronephrosis. Thespleen measures 13.2 cm in length. The visible pancreas is normal in echogenicity. No ascites is present. IMPRESSION: 1.Hepatic cirrhosis without evidence of discrete observations suggest hepatocellular carcinoma. 2.No evidence of cholelithiasis or acute cholecystitis. Dictated by Josh Collins MD (resident advisor) I, Dr. LEONCIO RESENDIZ have personally reviewed and interpreted this examination/study. This report was electronically signed by LEONCIO RESENDIZ on 09/20/2020 9:15 AM . Luís Grider MD US ORDERAB LES * EGD (07/26/2020 1:03 PM MOLDING TECHNICIAN) Report Endoscopy POC Endoscopy Department Report __ _ Patient Name: Celio Foote Procedure Date: 07/26/2020 1:03 PM Date of : 1960 Classification: Outpatient Gender: Male Ethnicity: Not or Race: White __ _ Providers: Burke Myers MD, Ty Cadena (Fellow) Referring MD: Luís Badillo MD (Referring MD) Procedure: Upper GI endoscopy Indications: Cirrhosis rule out esophageal varices Medications: See the Anesthesia note for documentation of the administered medications Patient Profile: 58M w/ cirrhosis, for EV screen. Description of Procedure: Pre-Anesthesia Assessment: Prior to the procedure, a History and Physical was performed, and patient medications and allergies were reviewed. The patient's tolerance of previous anesthesia was also reviewed. The risks and benefits of the procedure and the sedation options and risks were discussed with the patient. All questions were answered, and informed consent was obtained. Prior Anticoagulants: The patient has taken no previous anticoagulant or antiplatelet agents. ASA Grade Assessment: III - A patient with severe systemic disease. After reviewing the risks and benefits, the patient was deemed in satisfactory condition to undergo the procedure. After obtaining informed consent, the endoscope was passed under direct vision. Throughout the procedure, the patient's blood pressure, pulse, and oxygen saturations were monitored continuously. The GIF-H190 was introduced through the mouth, and advanced to the second part of duodenum. The upper GI endoscopy was accomplished without difficulty. The patient tolerated the procedure well. Findings: The examined esophagus was normal. The esophagogastric landmarks were identified: The Z-line was found at 45 cm, the upper extent of the gastric folds was found at 45 cm, and the site of hiatal narrowing was found at 45 cm from the incisors. The entire examined stomach was normal. The cardia and gastric fundus were normal on retroflexion. A small lymphangiectasia was present in the second portion of the duodenum. The exam of the duodenum was otherwise normal. Estimated Blood Loss: Estimated blood loss: None. Complications: No immediate complications. Impression: - Normal esophagus. No esophageal, gastroesophageal or gastric varices present. - Normal stomach. - Small lymphangiectasia in second portion of duodenum, otherwise normal examined duodenum. Moderate Sedation: MAC Recommendation: - Patient has a contact number available for emergencies. The signs and symptoms of potential delayed complications were discussed with the patient. Return to normal activities tomorrow. Written discharge instructions were provided to the patient. - Resume previous diet. - Continue present medications. - Repeat upper endoscopy in 2-3 years for surveillance. - Follow-up in Liver clinic as previously scheduled. Attending Participation: I was present and participated during the entire procedure, including non-espinosa portions. Procedure Code(s): --- Professional --- 77993, Esophagogastroduode noscopy, flexible, transoral; diagnostic, including collection of specimen(s) by brushing or washing, when performed (separate procedure) Diagnosis Code(s): --- Professional --- I89.0, Lymphedema, not elsewhere classified K74.60, Unspecified cirrhosis of liver CPT copyright 2019 [employer]. All rights reserved. The codes documented in this report are preliminary and upon animation director review may be revised to meet current compliance requirements. Burke Myers MD 07/26/2020 1:48:58 PM Note Initiated On: 07/26/2020 1:03 PM Number of Addenda: 0 [facility] [address] [place], [place] [id number] [place] [address] PROVATION 07/26/2020 1:03 PM MOLDING TECHNICIAN Anthony Silva MD GI PROCEDURE ORDERAB LES [facility] PROVATION * CT ABDOMEN MULTI PHASE W CONT (08/25/2019 8:25 AM MOLDING TECHNICIAN) Only the most recent of2 resultswithin the time period is included. Anatomical Region Laterality Modality Computed Tomogra phy 08/25/2019 8:31 AM MOLDING TECHNICIAN Impressions 08/26/2019 4:07 PM MOLDING TECHNICIAN IMPRESSION: 1. No arterially-enhancing hepatic lesions concerning for hepatocellular carcinoma. 2. Hepatic cirrhosis with sequela of portal hypertension. Dictated by Christiano Rhodes MD (resident advisor). I, Dr. ROE LÓPEZ M.D. have personally reviewed and interpreted this examination/study. This report was electronically signed by ROE LÓPEZ M.D. on 08/26/2019 4:07 PM . Narrative 08/26/2019 4:07 PM MOLDING TECHNICIAN EXAMINATION: Computed tomography (CT) of the abdomen with contrast HISTORY: K74.60: Cirrhosis of liver without ascites, unspecified hepatic cirrhosis type TECHNIQUE: CT of the abdomen was performed following the uneventful administration of 150 mL of Isovue-370 intravenous contrast according to a three-phase liver protocol. COMPARISON: Comparison is made with a study from 08/18/2018. FINDINGS: The aorta is normal in course and caliber. Mild bilateral dependent atelectasis is present. Otherwise no focal consolidation is seen in the visible lung bases. The heart size is normal without pericardial effusion. Surface nodularity of the liver is consistent with hepatic cirrhosis. No arterially-enhancing liver lesion suspicious for hepatocellular carcinoma is identified. A 1.0 cm simple cyst is redemonstrated in the right hepatic lobe. An evolving region of fat necrosis along the lateral aspect of the inferior tip of the liver has decreased in size when compared to the prior exam. There is a replaced right hepatic artery arising from the superior mesenteric artery. There is an accessory left hepatic artery arising from the left gastric artery. The portal vein is mildly dilated measuring up to 1.9 cm in diameter. The portal and main hepatic veins are patent without evidence of thrombi. No ascites is identified. 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 The spleen is not enlarged. The gallbladder is normal without evidence of wall thickening, pericholecystic fluid, or gallstones. The intrahepatic and extrahepatic bile ducts are nondilated. The pancreas and adrenal glands are normal. The right kidney remains smaller than the left with mild cortical scarring. There is no evidence of renal calculus or hydronephrosis. The previously identified calculi in the lower pole of the right kidney as well as the proximal right ureter are not seen on today's examination. The distal esophagus and stomach appear normal. The visualized portions of the small bowel and large bowel are normal in caliber without evidence of wall thickening or obstruction. No free intraperitoneal air is seen. Nonspecific enlarged periportal lymph nodes are redemonstrated, the largest measuring 1.6 cm in short axis (series 8, image 106). A mildly enlarged lymph node along the anterior aspect of the common bile duct measures 2 cm in short axis (series 8 image 83), unchanged from the prior exam. Bone windows demonstrate no suspicious lytic or blastic lesions. The visible osseous structures are intact. Mild multilevel degenerative changes are noted in the spine. Procedure Note Roe López MD - 08/26/2019 EXAMINATION: Computed tomography (CT) of the abdomen with contrast HISTORY: K74.60: Cirrhosis of liver without ascites, unspecified hepatic cirrhosis type TECHNIQUE: CT of the abdomen was performed following the uneventful administration of 150 mL of Isovue-370 intravenous contrast according toa three-phase liver protocol. COMPARISON: Comparison is made with a study from 08/18/2018. FINDINGS: The aorta is normal in course and caliber. Mild bilateral dependent atelectasis is present. Otherwise no focal consolidation is seen in the visible lung bases. The heart size isnormal without pericardial effusion. Surface nodularity of the liver is consistent with hepatic cirrhosis. No arterially-enhancing liver lesion suspicious for hepatocellularcarcinoma is identified. A 1.0 cm simple cyst is redemonstrated in the righthepatic lobe. An evolving region of fat necrosis along the lateral aspect of the inferior tip of the liver has decreased in size when compared to theprior exam. There is a replaced right hepatic artery arising from the superior mesenteric artery. There is an accessory left hepatic artery arisingfrom the left gastric artery. The portal vein is mildly dilated measuring upto 1.9 cm in diameter. The portal and main hepatic veins are patent without evidence of thrombi. No ascites is identified. 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 The spleen is not enlarged. The gallbladder is normal without evidence of wall thickening, pericholecystic fluid, or gallstones. The intrahepatic and extrahepatic bile ducts are nondilated. The pancreas and adrenal glands are normal.The right kidney remains smaller than the left with mild cortical scarring. There is no evidence of renal calculus or hydronephrosis. The previously identified calculi in the lower pole of the right kidney as well as the proximal right ureter are not seen on today's examination. The distal esophagus and stomach appear normal. The visualized portionsof the small bowel and large bowel are normal in caliber without evidenceof wall thickening or obstruction. No free intraperitoneal air is seen. Nonspecific enlarged periportal lymph nodes are redemonstrated, the largest measuring 1.6 cm in short axis (series 8, image 106). A mildly enlarged lymph node along the anterior aspect of the common bile duct measures 2 cm in short axis (series 8 image 83), unchanged from theprior exam. Bone windows demonstrate no suspicious lytic or blastic lesions. The visible osseous structures are intact. Mild multilevel degenerative changes are noted in the spine. IMPRESSION: 1. No arterially-enhancing hepatic lesions concerning for hepatocellular carcinoma. 2. Hepatic cirrhosis with sequela of portal hypertension. Dictated by Christiano Rhodes MD (resident advisor). I, Dr. ROE LÓPEZ M.D. have personally reviewed and interpretedthis examination/study. This report was electronically signed by ROE LÓPEZ M.D. on 08/26/2019 4:07 PM . Darshan Wolf MD CT ORDERABLES * (ABNORMAL) CREATININE BLOOD - POCT (IP) [facility] (08/25/2019 8:07 AM MOLDING TECHNICIAN) Only the most recent of2 resultswithin the time period is included. Creatinine POCT 1.45(A) 0.3 - 1.3 mg/dL [facility] POCT TESTING eGFR POCT 53(A) 60 ml/min [facility] POCT TEST[facility] Blood BLOOD SPECIMEN / Unknown 08/25/2019 8:07 AM MOLDING TECHNICIAN Darshan Wolf MD LAB - POINT OF CARE ORDERABLES [facility] POCT TESTING [address] [phone] * PULSE OXIMETRY - POINT OF CARE (AMB) (02/27/2018) Pathologist [facility] Oximetry POCT 96 0 - 100 % QC Verified Yes Yes Blood BLOOD SPECIMEN / Unknown 02/27/2018 Nancy Weaver APRNGOOD [facility] LAB - POINT OF CARE ORDERABLES * HEPATITIS C REAL-TIME PCR QUANTASURE (09/20/2015 2:00 PM MOLDING TECHNICIAN) Only the most recent of2 resultswithin the time period is included. Pathologist [facility] Hepatitis C Virus RNA PCR Quantitative <15 NOT DETECTED <15 IU/mL [facility] ([facility]) Hepatitis C Virus RNA Log IU/mL <1.18 NOT DETECTED <1.18 Log IU/mL [facility] ([facility]) See Note [facility] ([facility]) Comment: This test was performed using the NATI(R)AmpliPrep/ NATI(R)TaqMan(R)HCV Test, v2.0. The performance characteristics of this assay have been determined by [employer]. Performance characteristics refer to the analytical performance of the test. For more information on this test, go to: http://education.[employer]/faq/EZI27g2 (This link is being provided for informational/ educational purposes only.) Test Performed at: [facility] [address] [place] [address] NGUYEN GARCIA DO,MPH 09/20/2015 2:00 PM MOLDING TECHNICIAN 09/20/2015 2:00 PM MOLDING TECHNICIAN Darshan Wolf MD LAB - SEROLOGY ORDER [facility] ([facility]) * (ABNORMAL) HEPATITIS C FIBROSURE (06/18/2014 12:54 PM CDT) Fibrosis Score 0.71(H) 0.00 - 0.21 [facility] (BEAKER) Fibrosis Stage Comment [facility] (BEAKER) Comment:F3-Bridging fibrosis with many septa Necroinflammat Activity Score 0.48(H) 0.00 - 0.17 [facility] (BEAKER) Necroinflammat Activity Grade A1-A2 [facility] (BEAKER) Alpha 2-Macroglobulins Quantitative 340(H) 110 - 276 mg/dL [facility] (BEAKER) Haptoglobin 85 34 - 200 mg/dL [facility] (BEAKER) Apolipoprotein A-1 123 110 - 180 mg/dL [facility] (BEAKER) Bilirubin Total 0.6 0.0 - 1.2 mg/dL [facility] (BEAKER) GGT 70(H) 0 - 65 IU/L [facility] (BEAKER) ALT P5P 56(H) 0 - 55 IU/L [facility] (BEAKER) Interpretation Comment [facility] ([facility]ER) Comment: Quantitative results of 6 biochemical tests are analyzed using a computational algorithm to provide a quantitative surrogate marker (0.0-1.0) for liver fibrosis (METAVIR F0-F4) and for necroinflammatory activity (METAVIR A0-A3). Fibrosis Scoring Comment [facility] (BEAKER) Comment: <0.21 = Stage F0 - No fibrosis 0.21 - 0.27 = Stage F0 - F1 0.27 - 0.31 = Stage F1 - Portal fibrosis 0.31 - 0.48 = Stage F1 - F2 0.48 - 0.58 = Stage F2 - Bridging fibrosis with few septa 0.58 - 0.72 = Stage F3 - Bridging fibrosis with many septa 0.72 - 0.74 = Stage F3 - F4 >0.74 = Stage F4 - Cirrhosis Necroinflammat Activity Scoring Comment [facility] [facility] ([place] Comment: <0.17 = Grade A0 - No Activity 0.17 - 0.29 = Grade A0 - A1 0.29 - 0.36 = Grade A1 - Minimal activity 0.36 - 0.52 = Grade A1 - A2 0.52 - 0.60 = Grade A2 - Moderate activity 0.60 - 0.62 = Grade A2 - A3 >0.62 = Grade A3 - Severe activity Limitations Comment [facility] ([facility] Comment: The negative predictive value of a Fibrotest score <0.31 (absence of clinically significant fibrosis) was 85% when compared to liver biopsy in 1,270 HCV infected patients with a 38% prevalence of significant liver fibrosis (F2, 3 or 4). The positive predictive value of a Fibro- test score >0.48 (F2, 3, 4) was 61% in that same patient cohort. HCV FibroSURE is not recommended in patients with Gilbert Disease, acute hemolysis (e.g. HCV ribavirin therapy mediated hemolysis) acute hepa- titis of the liver, extra-hepatic cholestasis, transplant patients, and/or renal insufficiency patients. Any of these clinical situations may lead to inaccurate quantitative predictions of fibrosis and necroinflammatory activity in the liver. Comment Comment [facility] ([place]) Comment: This test was developed and its performance characteristics determined by [facility]. It has not been cleared or approved by the Food and Drug Administration. The FDA has determined that such clearance or approval is not necessary. For questions regarding this report please contact [facility] Customer Service Department at . Blood specimen (specimen) BLOOD SPECIMEN / Unknown 06/18/2014 12:54 PM CDT 06/18/2014 2:07 PM CDT Narrative [facility] ([place]) - 06/22/2014 5:14 PM CDT Performed at: [address] [place] [address] [address] [facility], [place], [place] [id number] Parking Patroller: Bryon Koehler MD, Phone: [phone] Performed at: 02 - [facility] [address] [id number] Parking Patroller: Nguyen Walden MD, Phone: [phone] Darshan Wolf MD LAB - CHEMISTRY ALEXANDRA CLFITON [facility] ([place]) * (ABNORMAL) HEPATITIS C RNA QUANTITATIVE PCR (06/18/2014 12:54 PM CDT) Only the most recent of2 resultswithin the time period is included. [facility] Hepatitis C Virus RNA PCR Specimen: 1 ml Serum Reference: [id number] Test: Hepatitis C RT-PCR (Quantitative) RESULT 615,200 IU/ml Reference Range Not Detected INTERPRETATION The quantitative Hepatitis C viral RNA RT-PCR determination was performed on a serum sample and is reported in IU/ml. Detection and quantification was successful. COMMENT The Hepatitis C (HCV) viral RNA analysis utilized a serum sample, real-time reverse management lecturer PCR, and is reported as Not Detected/Detected (<50)/Quantity (IU/ml) or >35,000,000 IU/ml. The analytical sensitivity of the assay is 7 IU/ml (95% of samples with this HCV RNA level were detected). Values less than 7 IU/ml are reported as Not Detected (<7 IU/ml); values greater than 7 IU/ml and less than 50 IU/ml are reported as Detected (<50). The linear range is from 50 IU/ml to 35,000,000 IU/ml. Values greater than 35,000,000 IU/ml are reported as >35,000,000 IU/ml. The detection/quantita tion of HCV RNA in serum or plasma is based on the isolation of HCV RNA with reverse management lecturer of genomic HCV RNA followed by real-time PCR in the presence of a reference standard RNA. The standard ensures that RNA was isolated, that no general significant inhibitors of the RT-PCR process were present. This test was developed and its performance characteristics determined by the [facility] at [facility]. It has not been cleared or approved by the U.S. Food and Drug Administration. The FDA has determined that such clearance or approval is not necessary. This test is used for clinical purposes. It should not be regarded as investigational or for research. This laboratory is certified under the Clinical Laboratory Improvement Amendments of 1988 (CLIA-88) as qualified to perform high complexity clinical laboratory testing. Test performed at [facility], [address] [place] [address] This case has been personally reviewed and interpreted by the attending (teaching) pathologist. Final Diagnosis performed by Gurinder Saenz PHD. Electronically signed 06/22/2014(A) [facility] ([facility]) Blood specimen (specimen) BLOOD SPECIMEN / Unknown 06/18/2014 12:54 PM CDT 06/18/2014 2:06 PM CDT Darshan Wolf MD LAB - CHEMISTRY ALEXANDRA CLIFTON [facility] ([facility]) * SHELDON BLOOD SCREEN (11/16/2013 4:23 PM MOLDING TECHNICIAN) SHELDON NONE DETECTED NONE DETECT [facility] 11/16/2013 4:23 PM MOLDING TECHNICIAN 11/16/2013 4:58 PM MOLDING TECHNICIAN Narrative [facility] - 11/18/2013 1:51 PM MOLDING TECHNICIAN LEFT MESSAGE WITH DR WOLF'S NURSE. CALLED TO VERIFY TEST POLYMORPHISM. DID THEY WANT JUST THE INTERLEUKIN 28 OR ANOTHER POLYMORPHISM TEST. PHONED FOR CLARIFICATION 11-17. Darshan Wolf MD LAB - CHEMISTRY ALEXANDRA CLIFTON Performing Organization Address City/[facility]/ZIP Co de Phone Number [address] [phone] * (ABNORMAL) INTERLEUKIN-28B POLYMORPHISM GENOTYPE (11/16/2013 4:23 PM MOLDING TECHNICIAN) IL28B Polymorphism (A) () [facility] Comment: Specimen: 5 ml Peripheral Blood Reference: [id number] Test: IL28B Polymorphism Testing RESULT IL28B SITE: GENOTYPE: [id number] TC [id number] TT [id number] GA INTERPRETATION Specific IL28B polymorphisms have been associated with increased likelihood of spontaneous clearing of Hepatitis C as well as better clinical response to antiviral therapy. In particular better prognosis has been correlated with [id number] CC, [id number] AA and [id number] TT genotypes. COMMENT DNA was isolated from the specimen and analyzed in a real-time Taqman based allele specific PCR assay to characterize three polymorphisms of IL28B ([id number], [id number] and [id number]; reviewed in Kirsty Herrera and Ramsey Garland 2010). Specific polymorphisms have been associated with increased likelihood of spontaneous clearing of Hepatitis C virus as well as improved response to interferon based therapeutic regimens of Hepatitis C. This test was developed and its performance characteristics determined by the [facility] at [facility]. It has not been cleared or approved by the U.S. Food and Drug Administration. The FDA has determined that such clearance or approval is not necessary. This test is used for clinical purposes. It should not be regarded as investigational or for research. This laboratory is certified under the Clinical Laboratory Improvement Amendments of 1988 (CLIA-88) as qualified to perform high complexity clinical laboratory testing. Test performed at [facility], [address] [place] [address] This case has been personally reviewed and interpreted by the attending (teaching) pathologist. Final Diagnosis performed by Sultan Warner Burris MD, PhD. Electronically signed 11/20/2013 11/16/2013 4:23 PM MOLDING TECHNICIAN 11/16/2013 4:58 PM MOLDING TECHNICIAN Narrative [facility] - 11/20/2013 4:41 PM MOLDING TECHNICIAN LEFT MESSAGE WITH DR WOLF'S NURSE. CALLED TO VERIFY TEST POLYMORPHISM. DID THEY WANT JUST THE INTERLEUKIN 28 OR ANOTHER POLYMORPHISM TEST. PHONED FOR CLARIFICATION 11-17. Darshan Wolf MD LAB - CHEMISTRY ALEXANDRA LCIFTON [facility] [address] [place] [address], [facility] [phone] * HEPATITIS C GENOTYPE (11/16/2013 4:23 PM MOLDING TECHNICIAN) Hepatitis C Genotype LiPA 1a See Note [facility] Comment: This assay can detect the six (6) major HCV Genotypes and their most common subtypes. Several clinical studies have demonstrated that Genotype 1 HCV may be more refractory to interferon monotherapy as well as to interferon plus ribavirin combination therapy. Sustained response rates are increased for Genotype 1 infected patients when therapy is given for 48 weeks instead of 24 weeks. This test was developed and its performance characteristics determined by [facility]. It has not been cleared or approved by the U.S. Food and Drug Administration. The FDA has determined that such clearance or approval is not necessary. This test is used for clinical purposes. It should not be regarded as investigational or for research. Performed at: [address] [id number] Parking Patroller: Nguyen Walden MD, Phone: [phone] 11/16/2013 4:23 PM MOLDING TECHNICIAN 11/16/2013 4:59 PM MOLDING TECHNICIAN Darshan Wolf MD LAB - CHEMISTRY ORDE ELODIA Performing Organization Address [facility]/ZIP Co de Phone Number [address] [phone] * SMOOTH MUSCLE ANTIBODY (11/16/2013 4:23 PM MOLDING TECHNICIAN) Actin Antibody IgG 6.8 0.0 - 19.9 UNITS [facility] Comment: Interpretation/Reference Range Negative: < 20.0 Units Weak Positive: 20.0 - 30.0 Units Moderate to Strong Positive: > 30.0 Units 11/16/2013 4:23 PM MOLDING TECHNICIAN 11/16/2013 4:58 PM MOLDING TECHNICIAN Narrative [facility] - 11/18/2013 1:51 PM MOLDING TECHNICIAN LEFT MESSAGE WITH DR WOLF'S NURSE. CALLED TO VERIFY TEST POLYMORPHISM. DID THEY WANT JUST THE INTERLEUKIN 28 OR ANOTHER POLYMORPHISM TEST. PHONED FOR CLARIFICATION 11-17. Darshan Wolf MD LAB - SEROLOGY ORDER PEPE Performing Organization Address [facility] Co de Phone Number [address] [phone] * T4 FREE (11/16/2013 4:23 PM MOLDING TECHNICIAN) T4 Free 1.0 0.7 - 1.5 ng/dL [facility] 11/16/2013 4:23 PM MOLDING TECHNICIAN 11/16/2013 4:58 PM MOLDING TECHNICIAN Narrative [facility] - 11/16/2013 5:54 PM MOLDING TECHNICIAN LEFT MESSAGE WITH DR WOLF'S NURSE. CALLED TO VERIFY TEST POLYMORPHISM. DID THEY WANT JUST THE INTERLEUKIN 28 OR ANOTHER POLYMORPHISM TEST. PHONED FOR CLARIFICATION 11-17. Darshan Wolf MD LAB - CHEMISTRY ALEXANDRA CLIFTON [facility] Organization Address City/State/ZIP Co de Phone Number [facility] [address] [place] [address] * GROSS + MICRO EXAM (01/29/2008 9:51 AM CDT) Result CASE NUMBER [id number] Comment: ORDERING PHYSICIAN BRONSON FANG SPECIMEN TYPE Tissue-deep soft rt mass Surgeon DR. Junior FANG Gross Exam XAVIER NELSON Gross Report COPY TO INDICATION FOR PROCEDURE DEEP SOFT TISSUE MASS RIGHT ARM, MASS BACK AND ARM, SKIN TAGS NECK OPERATION EXCISION DEEP SOFT TISSUE MASS RIGHT ARM, MASS BACK AND CHEST, CAUTERIZATION SKIN TAGS GROSS THE SPECIMEN IS RECEIVED IN FOUR CONTAINERS LABELED WITH THE PATIENT'S NAME. 1. THE FIRST CONTAINER IS LABELED DEEP SOFT TISSUE MASS RIGHT ARM . THE SPECIMEN IS RECEIVED IN FORMALIN AND CONSISTS OF AN IRREGULAR 6 X 5 X 3 CM. DISRUPTED PIECE OF YELLOW, STARK LOBULAR FATTY SOFT TISSUE. IT IS PARTIALLY COVERED BY A THIN DELICATE TRANSPARENT MEMBRANOUS TISSUE. THE CUT SURFACES ARE HOMOGENOUS AND FATTY. A BUILDING INSPECTION ENGINEER SECTION OF THE SPECIMEN IS SUBMITTED IN CASSETTE A . 2. THE SECOND CONTAINER IS LABELED MASS BACK . THE SPECIMEN IS RECEIVED IN FORMALIN AND CONSISTS OF AN UNORIENTED 1.5 X 0.7 X 0.6 CM. ELLIPSE OF STARK SKIN. ON THE EPIDERMAL SURFACE IS A CENTRAL 5 MM. WRINKLED RAISED STARK BROWN NODULE. THE MARGINS ARE INKED. THE SPECIMEN IS SERIALLY SECTIONED AND THEN SUBMITTED ENTIRELY IN B WITH THE TIPS IN THE CLASSICAL FASHION AND ADDITIONALLY INKED BLACK. 3. THE THIRD CONTAINER IS LABELED MASS CHEST . THE SPECIMEN IS RECEIVED IN FORMALIN AND CONSISTS OF AN UNORIENTED 1.5 X 0.5 X 0.5 CM. ELLIPSE OF STARK SKIN. ON THE EPIDERMAL SURFACE IS A 7 X 6 MM. RAISED WRINKLED STARK NODULE. THE MARGINS ARE INKED. THE SPECIMEN IS SERIALLY SECTIONED AND THEN SUBMITTED ENTIRELY IN C WITH THE TIPS ADDITIONALLY INKED BLACK. 4. THE FOURTH CONTAINER IS LABELED SKIN TAGS NECK . THE SPECIMEN IS RECEIVED IN FORMALIN AND CONSISTS OF THREE 0.2 TO 0.5 CM. WRINKLED STARK SKIN NODULES. ALL SUBMITTED IN D . LW/CS MICROSCOPIC EXAM MICROSCOPIC THE SOFT TISSUE MASS OF THE RIGHT ARM CONSISTS OF LOBULATED MATURE ADIPOSE TISSUE CONSISTENT WITH A LIPOMA. THE MASS OF THE BACK IS A SLIGHTLY PEDUNCULATED COMPOUND MELANOCYTIC NEVUS. THE LESION IS EXCISED. THE CHEST MASS IS ALSO A NEVUS THAT APPEARS TO BE INTRADERMAL. IT TOO IS EXCISED. THE NECK LESIONS ARE AN INTRADERMAL NEVUS AND THREE ACROCHORDONS. AB/BK DIAGNOSIS DIAGNOSIS I. LESION OF THE RIGHT ARM, EXCISION -- MATURE ADIPOSE TISSUE CONSISTENT WITH LIPOMA. II. LESION OF THE BACK, EXCISION -- COMPOUND MELANOCYTIC NEVUS, EXCISED. III. LESION OF THE CHEST, EXCISION -- INTRADERMAL NEVUS, EXCISED. IV. LESIONS OF THE NECK, EXCISION -- ACROCHORDONS (3). -- INTRADERMAL NEVUS, EXCISED (1). AB/BK Released By DANGELO KIM CPT Code [id number] MISCELLANEOUS SAMPLES / Unknown 01/29/2008 9:51 AM CDT 01/29/2008 9:52 AM CDT Historical Provider LAB - PATHOLOGY/C YTOLOGY ORDERABLES Care Teams Senior Analytical Chemist Relationship Specialty Start Date End Date Brody Gonzalez MD [address] [phone] PCP - General 05/20/18
--- OUTSIDE RECORDS SUMMARY | 2024-11-30 15:42 | XMS_ITS | Encounter Summary ---
Author Organization [facility] SRIDHARCortexa Mitchel [facility] Address [address] [place] [address] Care Team Providers Care Tester Wafer Substrate Name Role Phone Unavailable Primary Care Provider Unavailabl e Encounter Details Date Type Department Care Team (Late st Contact Info) Description 11/25/2024 Orders Only [facility] Oncology and Hematology - Juno Elke [address] [place] [address] Jesse Augustin MD [facility] [address] [place] [phone] Social History Tobacco Use Types Packs/Day Years Used Date Smoking Tobacco: Every Day Cigarettes 0.5 49.2 Started: 09/23/1975 Smokeless Tobacco: Never Alcohol Use Standard Drinks/Week Comments Never 0 (1 standard drink = 0.6 oz pur e alcohol) Sex and Gender Information Value Date Recorded Sex Assigned at Not on file Legal Sex Male 6:44 PM BOX SEALING INSPECTOR Gender Identity Not on file Sexual Orientation Not on file documented as of this encounter Plan of Treatment Upcoming Encounters Date Type Department Care Team (Late st Contact Info) Description 12/16/2024 2:15 PM CDT Office Visit [facility] Oncology and Hematology - Juno Loan Maddox [address] [place] [address] Jesse Augustin MD [facility] [address] [place] [phone] documented as of this encounter Procedures Procedure Name Priority Date/Time Associated Diagnosis Comments MRA PELVIS W WO CONTRAST Routine 11/03/2024 10:42 AM BOX SEALING INSPECTOR CBC WITH DIFFERENTIAL Routine 11/02/2024 10:46 AM BOX SEALING INSPECTOR documented in this encounter Results * MRA PELVIS W WO CONTRAST (11/03/2024 10:42 AM BOX SEALING INSPECTOR) Anatomical Region Laterality Modality Pelvis Other us Jesse Augustin MD MR ORDERABLES Final Result * CBC WITH DIFFERENTIAL (11/02/2024 10:46 AM BOX SEALING INSPECTOR) Blood us Jesse Augustin MD HEMATOLOGY ORDERABLES Final Res ult documented in this encounter Visit Diagnoses Not on filedocumented in this encounter
--- OUTSIDE RECORDS SUMMARY | 2024-11-30 15:42 | XMS_ITS | Referral Summary ---
Author Organization [facility] Address [address] [place] [address] [address] Care Team Providers Care Machine Applicator Cementer Name Role Phone Brody Gonzalez MD Primary Care Provider Source Comments [facility] [employer],non-owned Affiliates and Associated Physician Practices is amultiple site organization consisting of ambulatory clinics and hospital sitesin [place], [place], [place] and [place]. This disclosure is being madepursuant to the Care Everywhere program and may not contain all information available regarding this patient. Last updated 18.[facility] [employer] Allergies No known active allergies Medications * Be aware that medications may not be up to date on this document. Alwaysverify current medications with the patient. Medication Sig Dispensed Refills Start Date End Date Status sertraline (ZOLOFT) 12.5 MG tablet Take 4 (four) Half Tablet by mouth once daily Active gabapentin (NEURONTIN) 600 MG tablet Take 1 (one) tablet by mouth 3 times daily Active albuterol HFA (PROVENTIL;VENTOLI N;PROAIR) 108 (90 BASE) MCG/ACT inhalerIndications :COPD exacerbation (HCC) Inhale 2 puffs by mouth every 4 hours as needed 1 Inhaler 02/27/2018 Active lisinopril (PRINIVIL; ZESTRIL) 40 MG tablet Take 1 (one) tablet by mouth once daily 02/18/2018 Active spironolactone (ALDACTONE) 50 MG tablet Take 1 tablet by mouth once daily 90 tablet 3 01/19/2021 Active Additional Information Patient not taking.Reported on 06/22/2024 furosemide (LASIX) 20 MG tablet Take 1 tablet by mouth once daily 90 tablet 3 01/19/2021 Active metFORMIN (GLUCOPHAGE) 500 MG tablet Take 1 (one) tablet by mouth 2 times daily with morning and evening meal Active tadalafil (CIALIS) 5 MG tablet Take 1 (one) tablet by mouth once as needed Active Fluticasone-Umecli din-Vilant (TRELEGY ELLIPTA) 100-62.5-25 MCG/INH Inhale 1 (one) puff by mouth once daily Active tamsulosin (Flomax) 0.4 MG capsule Take 1 (one) capsule by mouth once daily Active Mounjaro 5 MG/0.5ML injection Inject 5 (five) mg subcutaneously every 7 days 12/02/2023 Active vitamin D, ergocalciferol, (Drisdol) 1.25 MG (81236 UT) capsule Take 1 (one) capsule by mouth every 7 days Active sodium chloride 1 GM tablet Take 1 (one) tablet by mouth once daily Active Active Problems Problem Noted Date Diagnosed Date Osteoarthritis of knee 02/06/2020 Obesity 02/06/2020 Cirrhosis (prior HCV + [facility] risks) 06/30/2018 Overview (06/22/2024): HCV cured with treatment in 201308/18/18 CT: nodular liver, cyst otherwise no focal lesions, no ascites 08/25/[address]: nodular liver, simple cyst but otherwise no focal lesions, patent vessels, varices, no ascites 07/26/20 EGD: no varices or PHG 09/20/20 US: nodular liver, no focal lesions, patent vessels, no ascites mcm 09/14/21 US: fatty liver, no focal lesions, no nodularity, patent vessels, no ascites mcm 12/28/21 US: fatty liver, no focal lesions, no nodularity, patent vessels, no ascites mcm 01/18/23 US: fatty liver, no nodularity, no focal lesions, patent vessels, no ascites 01/21/23 Fibroscan CAP 377, LSM 19.8 kPa 06/22/24: Fibroscan: CAP 230 , LSM 14.9 kPa Right upper quadrant abdominal pain 05/20/2018 Chronic pain COPD (chronic obstructive pulmonary disease) Depression Hypertension Neuropathy Sleep apnea Overview (02/08/2020): CPAP since about 2013 Spinal stenosis Resolved Problems Problem Noted Date [...] Mass Index 35.58 06/22/2024 10:24 AM CDT Functional Status Functional Status Response Date of Assess ment Is person deaf or have serious hearing difficult y? No 07/26/2020 Is person blind or have serious difficulty seein g? No 07/26/2020 Does person have serious dif ficulty walking/climbing stairs? No 07/26/2020 Does person have difficulty dressing/bathing? No 07/26/2020 Does person have difficulty doing errands alone? No 07/26/2020 Cognitive Status Response Date of Assessm ent Does person have difficulty concentrating/remembering/making decisions? No 07/26/2020 Plan of Treatment Upcoming Encounters Date Type Department Care Team (Late st Contact Info) Description 06/21/2025 9:30 AM CDT Procedure visit [facility] - [facility] [address] [place] [address] 06/21/2025 10:00 AM CDT Office Visit [facility] - [facility] [address] [place] [address] Luís Grider MD [address] [address] Goals Goal Patient Goal Type Associated Problems Recent Progress Patient-Stated? Author Medication Management General On track( 024 10:31 AM CDT) Nicky Nayak RN Note: Expected end date: Ongoing Interventions: Take all medications as prescribed Let your doctor know right away about any changes in your medications Make sure to request a refill of your medication at least one week prior to your last dose Procedures Procedure Name Priority Date/Time Associated Diagnosis Comments COMPREHENSIVE METABOLIC PANEL Routine 06/22/2024 12:06 PM CDT Other cirrhosis of liver (HCC) HEPATITIS C REAL-TIME PCR QUANTASURE Routine 09/20/2015 2:00 PM DEMAND PLANNING ANALYST from Last 3 Months or Most Recently Relevant to Health Maintenance Results * (ABNORMAL) COMPREHENSIVE METABOLIC PANEL (06/22/2024 12:06 PM CDT) BUN 17 7 - 26 mg/dL 06/22/2024 1:[address] [facility] Creatinine 0.97 0.71 - 1.16 mg/dL 06/22/2024 1:[address] [facility] Sodium 139 136 - 145 mmol/L 06/22/2024 1:[address] [facility] Potassium 4.2 3.5 - 4.5 mmol/L 06/22/2024 1:[address] [facility] Chloride 105 98 - 107 mmol/L 06/22/2024 1:[address] [facility] CO2 26 22 - 29 mmol/L 06/22/2024 1:[address] [facility] Glucose 103 70 - 115 mg/dL 06/22/2024 1:[address] [facility] Calcium 9.0 8.4 - 10.2 mg/dL 06/22/2024 1:[address] [facility] Protein Total 7.2 6.0 - 8.3 g/dL 06/22/2024 1:22 PM [facility] Albumin 3.9 3.4 - 5.0 g/dL 06/22/2024 1:22 PM [facility] Bilirubin Total 0.4 0.2 - 1.2 mg/dL 06/22/2024 1:22 PM [facility] Alkaline Phosphatase 94 40 - 150 U/L 06/22/2024 1:22 PM [facility] ALT 15 5 - 55 U/L 06/22/2024 1:22 PM [facility] AST 19 5 - 34 U/L 06/22/2024 1:22 PM [facility] Anion Gap 8 6 - 16 06/22/2024 1:22 PM [facility] BUN/Creatinine Ratio 18 7 - 23 06/22/2024 1:22 PM [facility] Osmolality Calculated 290 275 - 295 mOsm/kg 06/22/2024 1:22 PM [facility] Albumin/Globulin Ratio 1.2 1.1 - 2.3 06/22/2024 1:22 PM [facility] eGFR by CKD-EPI 88(L) >=90 mL/min/1.7 3 m2 06/22/2024 1:22 PM [facility] Blood BLOOD SPECIMEN / Unknown Lab Venipuncture / Unknown 06/22/2024 12:06 PM CDT 06/22/2024 12:51 PM T Luís Grider MD LAB - CHEM ISTRY ORDERABLES Performing Organization Address City/State/[facility] Co de Phone Number [address] [phone], [facility] [phone] * HEPATITIS C REAL-TIME PCR QUANTASURE (09/20/2015 2:00 PM DEMAND PLANNING ANALYST) Hepatitis C Virus RNA PCR Quantitative <15 NOT DETECTED <15 IU/mL [facility] Hepatitis C Virus RNA Log IU/mL <1.18 NOT DETECTED <1.18 Log IU/mL [facility] See Note [facility] Comment: This test was performed using the NATI(R)AmpliPrep/ NATI(R)TaqMan(R)HCV Test, v2.0. The performance characteristics of this assay have been determined by [employer] Performance characteristics refer to the analytical performance of the test. For more information on this test, go to: http://education.PetroDE/faq/WJM74y9 (This link is being provided for informational/ educational purposes only.) Test Performed at: [facility] [address] [place] [address] NGUYEN GARCIA DO,MPH 09/20/2015 2:00 PM DEMAND PLANNING ANALYST 09/20/2015 2:00 PM DEMAND PLANNING ANALYST Darshan Bingham MD LAB - SEROLOGY ORDER PEPE [facility]) from Last 3 Months or Most Recently Relevant to Health Maintenance Care Teams Machine Applicator Cementer Relationship Specialty Start Date End Date Brody Gonzalez MD [address] [phone] PCP - General 05/20/18
--- OUTSIDE RECORDS SUMMARY | 2024-11-30 15:42 | XMS_ITS | Encounter Summary ---
Author Organization [facility] [employer] Information Development [facility] Address [address] [place] [address] Care Team Providers Care Rhit Name Role Phone Unavailable Primary Care Provider Unavailabl e Encounter Details Date Type Department Care Team (Late Contact Info) Description 11/27/2024 Orders Only [facility] Oncology and Hematology - Juno Elke [address]ox [address] [place] [address] Jesse Augustin MD [facility] [address] [place] [phone] Social History Tobacco Use Types Packs/Day Years Used Date Smoking Tobacco: Every Day Cigarettes 0.5 49.2 Started: 09/23/1975 Smokeless Tobacco: Never Alcohol Use Standard Drinks/Week Comments Never 0 (1 standard drink = 0.6 oz pur e alcohol) Sex and Gender Information Value Date Recorded Sex Assigned at Not on file Legal Sex Male 6:44 PM [employer] Gender Identity Not on file Sexual Orientation Not on file documented as of this encounter Plan of Treatment Upcoming Encounters Date Type Department Care Team (Late st Contact Info) Description 12/16/2024 2:15 PM CDT Office Visit [facility] Oncology and Hematology - Juno Loan Maddox [address] [place] [address] Jesse Augustin MD [facility] [address] [place] [phone] documented as of this encounter Procedures Procedure Name Priority Date/Time Associated Diagnosis Comments TESTOSTERONE, TOTAL Routine 11/20/2024 8:39 AM [employer] [facility] documented in this encounter Results * TESTOSTERONE, TOTAL (11/20/2024 8:39 AM [employer] [facility]) Blood us Jesse Augustin MD CHEMISTRY ORDERABLES Final Resu lt documented in this encounter Visit Diagnoses Not on filedocumented in this encounter
--- OUTSIDE RECORDS SUMMARY | 2024-11-30 15:42 | XMS_ITS | Referral Summary ---
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 Radiation Oncology [address] [facility] [place] [address] Loc Nava MD 11/11/[address] [facility] Radiation Oncology [address] [facility] [place] [address] No, Physician 11/06/[address] [facility] Radiation Oncology [address] [facility] [place] [address] No, Physician 11/04/[address] [facility] Radiation Oncology [address] [facility] [place] [address] No, Physician 10/30/[address] [facility] Radiation Oncology [address] [facility] [place] [address] No, Physician 10/26/2024 Orders Only [facility] Radiation Oncology [address] [facility] [place] [address] Loc Nava MD Prostate cancer (HCC) (Primary Dx) from Last 3 Months Allergies No known active allergies Medications gabapentin (NEURONTIN) 600 mg tablet Take 1 tablet (600 mg total) by mouth 3 (three) times a day 8 Active lisinopril (PRINIVIL,ZESTR IL) 40 mg tablet Take 1 tablet (40 mg total) by mouth 2 (two) times a day 8 Active sertraline (ZOLOFT) 50 mg tablet Take 1 tablet (50 mg total) by mouth daily Active tamsulosin (FLOMAX) 0.4 mg extended release capsule Take 1 capsule (0.4 mg total) by mouth daily 8 Active furosemide (LASIX) 20 mg tablet 3 Active metFORMIN (GLUCOPHAGE) 500 mg tablet 3 Active spironolactone (ALDACTONE) 50 mg tablet Take 1 tablet (50 mg total) by mouth daily 1 Active fluticasone-ume clidin-vilanter (TRELEGY ELLIPTA) 100-62.5-25 mcg inhaler Inhale 1 puff daily Active albuterol 2.5 mg /3 mL (0.083 %) nebulizer solution Take 3 mL (2.5 mg total) by nebulization every 4 (four) hours as needed for shortness of breath Active albuterol HFA (PROVENTIL HFA,VENTOLIN HFA,PROAIR HFA) 90 mcg/actuation inhalerIndicati ons:Chronic Obstructive Pulmonary Disease Inhale 2 puffs every 6 (six) hours as needed for wheezing Active Mounjaro 5 mg/0.5 mL pen injector Inject 5 mg/mL into the affected area once a week 4 Active Active Problems Problem Noted Date Diagnosed Date Cigarette nicotine dependence without complicati on 06/03/2024 Assessment & Plan (06/03/2024 11:36 AM CDT): - Smoking cessation counseling and techniques reviewed at length - Avoid triggers and use distraction techniques - Participate in support groups - Information given regarding [place] [employer] Quit line: 0-146-POME-YES for free services - 4 minutes spent discussing cessation He is due for annual lung cancer screening in July of 2024 Chest pain, unspecified type 03/09/2023 Disease of liver 03/09/2023 03/09/2023 Depression 03/09/2023 03/09/2023 Lumbar radiculopathy 03/09/2023 03/09/2023 Chest pain 03/09/2023 Chronic kidney disease 12/31/2022 Hypertension 12/31/2022 03/09/2023 Diabetes mellitus, type 2 12/25/20222022 Edema of lower extremity 12/25/2022 023 Sleep apnea 01/27/2019 03/09/2023 Overview (03/09/2023): CPAP since about 2013 Assessment & Plan (06/03/2024 11:37 AM CDT): Continue PAP therapy with all sleep He is aware of the risks of uncorrected sleep apnea He should establish with sleep medicine Knee pain 08/18/2014 Lumbago 04/19/2014 Chronic obstructive pulmonary disease 04/15/2014 03/09/2023 Assessment & Plan (06/03/2024 11:35 AM CDT): Continue Trelegy Ellipta 100 daily We have discussed the side effects of increased inhaled steroids including higher risk of pneumonia Albuterol as needed only, we have discussed indications for use Social History Tobacco Use Types Packs/Day Years Used Date Smoking Tobacco: Every Day Cigarettes 0.5 49.2 Started: 1975 Smokeless Tobacco: Never Tobacco Cessation:Ready to Q uit: Not Asked; Counseling Given: Not Answered Alcohol Use Standard Drinks/Week Comments No 0 (1 standard drink = 0.6 oz pur e alcohol) PHQ-2 Answer Date Recorded PHQ-2 Total Score (If total score is 3 or more points, staff should administer the PHQ-9) 0 03/09/2023 Personal Safety Answer Date Recorded Have you ever been in or are you currently in a harmful physical or emotional relationship or is someone making you feel afraid or unsafe? 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 Gender Identity Not on file Sexual Orientation Not on file Last Filed Vital Signs Vital Sign Reading Time Taken Comments Blood Pressure 130/70 06/03/2024 9:33 AM CDT Pulse 86 06/03/2024 9:33 AM CDT Temperature 36.7 C (98 F) 06/03/2024 9:33 AM CDT Respiratory Rate 18 06/03/2024 9:33 AM CDT Oxygen Saturation 97% 06/03/2024 9:33 AM CDT Inhaled Oxygen Concentration - - Weight 114.4 kg (252 lb 1.6 oz) 06/03/2024 9:33 AM CDT Height 177.8 cm (5' 10 ) 06/03/2024 9:33 AM CDT Body Mass Index 36.17 06/03/2024 9:33 AM CDT Plan of Treatment Not on file Medical Devices Implanted Type Area Heel Wheeler Device Identifier Shelf Expiration Date Model / Serial / Lot [employer] 192-124 Farelogixis Ultra Nautilus 5fr 2.1fr 28cm 2 Durometer Taper Tip Low - [id number] Implanted:Qty: 1 on 03/14/2018 by Peter Reyes MD at [facility] Right: Ure[employer] [id number] 05/14/2020 192-124 / / [id number] Procedures Procedure Name Priority Date/Time Associated Diagnosis Comments MR BODY OUTSIDE REFERENCE Routine 11/24/2024 11:42 AM TINSMITH APPRENTICE LIPID PANEL Routine 03/09/2023 11:38 AM CDT EGFR Routine 03/09/2023 4:56 AM CDT from Last 3 Months or Most Recently Relevant to Health Maintenance Results * MR Body Outside Reference (11/24/2024 11:42 AM TINSMITH APPRENTICE) Impressions RAD_PACS[facility] - 11/24/2024 11:42 AM TINSMITH APPRENTICE These images are for Reference purposes only and have not been reviewed by [facility] Radiology. There will be no report generated by a [facility] Radiologist. Narrative RAD_PACS_[facility] - 11/24/2024 11:42 AM TINSMITH APPRENTICE EXAMINATION: Images For Reference Purposes Only us Loc Nava MD IMG MRI PROCEDURES Fin al Result RAD_PACS_[facility] * (ABNORMAL) Lipid panel (03/09/2023 11:38 AM CDT) Cholesterol 120 30 - 199 mg/dL KATHIE Comment: Interpretive Data Ages < or = 19 years Acceptable: <170 mg/dL Borderline high: 170-199 mg/dL High: >or= 200 mg/dL Ages > or = 20 years Desirable: <200 mg/dL Borderline high: 200-239 mg/dL High: >or= 240 mg/dL Literature References: 1. Expert Panel on Integrated Guidelines for Cardiovascular Health and Risk Reduction in Children and Adolescents. Pediatrics 2011;128:S213 2. NCEP Expert Panel. Circulation 2004;110:227 Current Interpretive Data was last revised on 2018. Triglycerides 136 <=149 mg/dL KATHIE Comment: Interpretive Data Ages < or = 9 years Acceptable: <75 mg/dL Borderline high: 75-99 mg/dL High: >or= 100 mg/dL Ages 10 to 20 years Acceptable: <90 mg/dL Borderline high: 90-129 mg/dL High: >or= 130 mg/dL Ages > or = 20 years Desirable: <150 mg/dL Borderline high: 150-199 mg/dL High: 200-499 mg/dL Very high: >or= 499 mg/dL Literature References: 1. Expert Panel on Integrated Guidelines for Cardiovascular Health and Risk Reduction in Children and Adolescents. Pediatrics 2011;128:S213 2. NCEP Expert Panel. Circulation 2004;110:227 Current Interpretive Data was last revised on 2018. HDL 32(L) >=40 mg/dL KATHIE Comment: Interpretive Data Ages < or = 19 years Acceptable: >45 mg/dL Borderline low: 40-45 mg/dL Low: <40 mg/dL Ages > or = 20 years Desirable: >or= 60 mg/dL Low: <40 mg/dL Literature References: 1. Expert Panel on Integrated Guidelines for Cardiovascular Health and Risk Reduction in Children and Adolescents. Pediatrics 2011;128:S213 2. NCEP Expert Panel. Circulation 2004;110:227 Current Interpretive Data was last revised on 2018. LDL, calculated 61 <=129 mg/dL KATHIE DIAMOND Comment: Interpretive Data Ages < or = 19 years Acceptable: <110 mg/dL Borderline high: 110-129 mg/dL High: >or= 130 mg/dL Ages > or = 20 years Optimal: <100 mg/dL Near optimal: 100-129 mg/dL Borderline high: 130-159 mg/dL High: >160 mg/dL Literature References: 1. Expert Panel on Integrated Guidelines for Cardiovascular Health and Risk Reduction in Children and Adolescents. Pediatrics 2011;128:S213 2. NCEP Expert Panel. Circulation 2004;110:227 Current Interpretive Data was last revised on 2018. Non-HDL Cholesterol 88 mg/dL KATHIE DIAMOND Comment: Interpretive Data Ages < or = 19 years Acceptable: <120 mg/dL Borderline high: 120-144 mg/dL High: >145 mg/dL Ages > or = 20 years When triglycerides are >200 mg/dL, Non-HDL cholesterol is a secondary target of therapy with treatment goals that are 30 mg/dL greater than the LDL cholesterol target. Literature References: 1. Expert Panel on Integrated Guidelines for Cardiovascular Health and Risk Reduction in Children and Adolescents. Pediatrics 2011;128:S213 2. NCEP Expert Panel. Circulation 2004;110:227 Current Interpretive Data was last revised on 2018. Chol/HDL ratio 4 KATHIE DIAMOND Blood 03/09/2023 11:3 8 AM CDT 03/09/2023 12:00 PM CDT us Ramsey Jimnees MD LAB BLOOD ORDERABLES Final Result KATHIE DIAMOND [address] Department [place] [address] * eGFR (03/09/2023 4:56 AM CDT) eGFR 54 mL/min/1. 73 m2 KATHIE DIAMOND Comment: Interpretive Data Reference Interval Normal >/= 90 mL/min/1.73m2 Mildly decreased* 60 - 89 mL/min/1.73m2 Mildly to moderately decreased 45 - 59 mL/min/1.73m2 Moderately to severely decreased 30 - 44 mL/min/1.73m2 Severely decreased 15 - 29 mL/min/1.73m2 Kidney Failure < 15 mL/min/1.73m2 *Relative to young adult level Estimated glomerular filtration rate is determined by the 2020 CKD-EPI equation recommended by the National Kidney Foundation (A Unifying Approach to GFR Estimation: Recommendations of the NKF-ASK Task Force on Reassessing the Inclusion of Race in Diagnosing Kidney Disease, JASN 2020). The CKD-EPI equation should not be used for patients with unstable renal function and has not been validated in children and those over 70. Current interpretive data was last reviewed 2021. Blood 03/09/2023 4:56 AM CDT 03/09/2023 5:55 AM CDT us Rimma Singleton NP LAB BLOOD ORDERABLES Final R esult [facility] [address] Department [place] [address] from Last 3 Months or Most Recently Relevant to Health Maintenance Insurance [facility] MEDICARE MEDICARE SOLUTIONS Advance Directives For more information, please contact: [phone] * Full Code (Latest Code Status on File) Date Activated Date Inactivated Comments 03/09/2023 5:09 AM 03/09/2023 10:39 PM Care Teams Nurse Reviewer Relationship Specialty Start Date End Date Dee Gonzalez MD [address] [facility] [address] [place] [address] PCP - General 06/27/18
--- OUTSIDE RECORDS SUMMARY | 2024-11-30 15:42 | XMS_ITS ---
Author Organization [facility] Address [address] [place] [address] Care Team Providers Care Retail Sales Associate Bilingual Name Role Phone Headley Manolo Unavailable [phone] MEDICATIONS Medication SIG (Take, Route, Frequency, Duration) Notes Start Date End Date Status Albuterol Sulfate 108 (90 Base) MCG/ACT 1 puff as needed Inhalation every 4 hrs 11/04/2024 Active Encounters Encounter Location Date Provider Diagnosis [place] [facility] [address] [facility] [address] [place] [address] 11/04/2024 Manolo Headley PLAN OF TREATMENT Medication Medication Name Sig Start Date Stop Date Notes Albuterol Sulfate 108 (90 Base) MCG/ACT 1 puff as needed Inhalation every 4 hrs 11/04/2024 Next Appt Details Provider Name:Manolo Headley , 12/02/2024 04:15:00 PM, [address] [address], [place], [address], Progress Notes * Celio FOOTE RDOB:1960 (64 yo M)Acc No.[id number]:11/04/2024 Patient: Celio FOOTE :1960 Age:64 Y Sex:Male Address:[address] [place] [address] * Refills Start Albuterol Sulfate Aerosol Powder Breath Activated, 108 (90 Base) MCG/ACT, Inhalation, 1, 1 puff as needed, every 4 hrs, Refills=3 * * Date:
--- OUTSIDE RECORDS SUMMARY | 2024-11-30 15:42 | XMS_ITS ---
Author Organization [facility] Address [address] [facility] [address] [facility] [address] [place] [address] Care Team Providers Care Treasury Agent Name Role Phone Kayode Manolo Unavailable [phone] Encounters Encounter Location Date Provider Diagnosis [place] [facility] [address] [facility] [address] [place] [address] 11/18/2024 Manolo Headley PLAN OF TREATMENT Next Appt Details Provider Name:Manolo Headley , 12/02/2024 04:15:00 PM, [address] [facility], [address], [place], [address], Progress Notes * Celio FOOTE RDOB:1960 (64 yo M)Acc No.[id number]:11/18/2024 Progress Notes Patient: Celio FOOTE Provider: MD DAVIAN, Kimberly.Kade.C.P, F.A.S.N. :1960 Age:64 Y Sex:Male Date:11/18/2024 Address:[address] [place] [address] Subjective: * Chief Complaints: * * Medical History: Objective: Assessment: Plan: * Treatment: * Billing Information: * Visit Code: * Procedure Codes: * Sign off status: Pending * Provider: MD DAVIAN, Arley.C.P, F.A.S.N. Date: 11/18/2024
--- OUTSIDE RECORDS SUMMARY | 2024-11-30 15:42 | XMS_ITS | CONTINUITY OF CARE DOCUMENT ---
Author Name karen jones Address Unknown Organization [facility] Address [address] [place] [address] Phone [phone] Care Team Providers Care Finance Insurance Manager Name Role Phone Mervin GARIBAY, Gamaliel Unavailable [phone] EMERSON GARIBAY, WALTER Unavailable [phone] WALTER NORMAN MD Unavailable [phone] PROBLEMS Condition Status Date Provider Notes Thoracic radiculitis active SKY WOOD MD Personal history of tobacco use active JAME WOOD MD COPD active SKY WOOD MD Cardiovascular screening active Gamaliel silvestre MD Hyperlipidemia active ? Gamaliel Jeffries MD Hypertension active ? Gamaliel Jeffries MD Edema active Gamaliel Jeffries MD Sleep apnea active Gamaliel Jeffries MD Lower extremity edema, bilateral active Black nda Ventimiglia ORACLE TECHNICAL DEVELOPER Shortness of breath active Gillian Ventimigl ia ORACLE TECHNICAL DEVELOPER Diabetes mellitus, type 2 active Gillian Ellis timiglia ORACLE TECHNICAL DEVELOPER Venous insufficiency active Gamaliel Charlton Diabetes, Type 2 active Gamaliel Jeffries MD Tobacco use active Gamaliel Jeffries MD Muscle weakness (generalized) active SKY WOOD MD Chronic hepatitis C without mention of hepatic coma active SKY WOOD MD Lumbar radiculitis active SKY WOOD MD ENCOUNTERS Date Type Provider Location Encounter Diag nosis - In-person encounter Office Visit Gamaliel Jeffries MD [facility] - In-person encounter Office Visit Gamaliel Jeffries MD [facility] - In-person encounter Office Visit Gamaliel Jeffries MD [facility] Diabetes, Type 2 - In-person encounter Office Visit Gamaliel Jeffries MD [facility] Venous insufficiencyTobacco use - In-person encounter Office Visit Gamaliel Jeffries MD [facility] Lower extremity edema, bilateralShortnes s of breathDiabetes mellitus, type 2 - In-person encounter Office Visit Gamaliel Jeffries MD [facility] - In-person encounter Office Visit Gamaliel Jeffries MD [facility] - In-person encounter Office Visit Gamaliel Jeffries MD [facility] - In-person encounter Office Visit Gamaliel Jeffries MD [facility] Sleep apnea - In-person encounter Office Visit Gamaliel Jeffries MD [facility] Cardiovascular screeningHyperlipidemiaHypertensionEdema - In-person encounter Office Visit SKY WOOD MD [facility] - In-person encounter Office Visit SKY WOOD MD [facility] - In-person encounter Office Visit SKY WOOD MD [facility] - In-person encounter Office Visit SKY WOOD MD [facility] - In-person encounter Office Visit SKY WOOD MD [facility] - In-person encounter Office Visit SKY WOOD MD [facility] - In-person encounter Office Visit SKY WOOD MD [facility] - In-person encounter Office Visit SKY WOOD MD [facility] - In-person encounter Office Visit SKY WOOD MD [facility] - In-person encounter Office Visit SKY WOOD MD [facility] - In-person encounter Office Visit SKY WOOD MD [facility] - In-person encounter Office Visit SKY WOOD MD [facility] - In-person encounter Office Visit SKY WOOD MD [facility] - In-person encounter Office Visit SKY WOOD MD [facility] - In-person encounter Office Visit SKY WOOD MD [facility] - In-person encounter Office Visit SKY WOOD MD [facility] - In-person encounter Office Visit SKY WOOD MD [facility] - In-person encounter Office Visit SKY WOOD MD [facility] - In-person encounter Office Visit SKY WOOD MD [facility] - In-person encounter Office Visit SKY WOOD MD [facility] - In-person encounter Office Visit SKY WOOD MD [facility] - In-person encounter Office Visit SKY WOOD MD [facility] - In-person encounter Office Visit SKY WOOD MD [facility] - In-person encounter Office Visit SKY WOOD MD [facility] - In-person encounter Office Visit SKY WOOD MD [facility] - In-person encounter Office Visit SKY WOOD MD [facility] - In-person encounter Office Visit SKY WOOD MD [facility] - In-person encounter Office Visit SKY WOOD MD [facility] - In-person encounter Office Visit SKY WOOD MD [facility] - In-person encounter Office Visit SKY WOOD MD [facility] - In-person encounter Office Visit SKY WOOD MD [facility] - In-person encounter Office Visit SKY WOOD MD [facility] - In-person encounter Office Visit SKY WOOD MD [facility] - In-person encounter Office Visit SKY WOOD MD [facility] - In-person encounter Office Visit SKY WOOD MD [facility] - In-person encounter Office Visit SKY WOOD MD [facility] - In-person encounter Office Visit Rhianna Reyes [facility] - In-person encounter Office Visit SKY WOOD MD [facility] - In-person encounter Office Visit SKY WOOD MD [facility] - In-person encounter Office Visit SKY WOOD MD [facility] Personal history of tobacco useCOPDLumba r radiculitisChronic hepatitis C without mention of hepatic comaMuscle weakness (generalized) - In-person encounter Office Visit SKY WOOD MD [facility] - In-person encounter Office Visit Rhianna Reyes [facility] - In-person encounter Office Visit Rhianna Reyes [facility] - In-person encounter Office Visit Rhianna eRyes [facility] - In-person encounter Office Visit Rhianna Reyes [facility] - In-person encounter Office Visit Rhianna Reyes [facility] - In-person encounter Office Visit Rhianna Reyes [facility] - In-person encounter Office Visit Rhianna Reyes [facility] - In-person encounter Office Visit Rhianna Reyes [facility] - In-person encounter Office Visit Rhianna Reyes [facility] - In-person encounter Office Visit Rhianna Reyes [facility] - In-person encounter Office Visit Rhianna Reyes [facility] - In-person encounter Office Visit Rhianna Reyes [facility] - In-person encounter Office Visit Stephanie Cunningham [facility] - In-person encounter Office Visit Rhianna Reyes [facility] - In-person encounter Office Visit Rhianna Reyes [facility] - In-person encounter Office Visit Rhianna Reyes [facility] VITAL SIGNS Date Observation Value Provider Body Mass Index (Ratio) 41.03 kg/m2 John Jeffries MD blood pressure, diastolic 90 mm[Hg] Meg werner [facility] blood pressure, systolic 157 mm[Hg] Amara segal [facility] oxygen saturation, oximetry 96 % Karlee [facility] pulse rate 79 /min Karlee goldy weight E&M 286 [lb_av] Karlee Ruple blood pressure, cuff size regular Meg werner Ruple height E&M 70 [in_i] Karlee Ruple Body Mass Index (Ratio) 38.74 kg/m2 John Jeffries MD blood pressure, diastolic 70 mm[Hg] Li [facility] blood pressure, systolic 141 mm[Hg] Shameka [facility] oxygen saturation, oximetry 97 % Waylonlia Bc blood pressure, diastolic 70 mm[Hg] Ky louis Bc blood pressure, systolic 141 mm[Hg] Kyl ia Bc pulse rate 95 /min Kylia Bc respiratory rate E&M 14 /min Wu anderson weight E&M 270 [lb_av] Waylonlia Bc blood pressure, cuff size regular Ky louis Bc height E&M 70 [in_i] Kylia Bc Body Mass Index (Ratio) 41.46 kg/m2 John Jeffries MD blood pressure, cuff size regular Segun [facility] blood pressure, diastolic 77 mm[Hg] Segun rret blood pressure, systolic 142 mm[Hg] Franklyn fernandez pulse rate 95 /min Milton y oxygen saturation, oximetry 96 % Milton respiratory rate E&M 16 /min Milton weight E&M 289 [lb_av] Milton y height E&M 70 [in_i] Milton y Body Mass Index (Ratio) 41.03 kg/m2 John Jeffries MD pulse rate 91 /min Bhavya Adler respiratory rate E&M 20 /min Bhavya Adler blood pressure, cuff size regular Marley Adler blood pressure, diastolic 66 mm[Hg] Marley Adler blood pressure, systolic 112 mm[Hg] She tad Adler oxygen saturation, oximetry 96 % Bhavya Adler weight E&M 286 [lb_av] Bhavya Adler height E&M 70 [in_i] Bhavya Adler Body Mass Index (Ratio) 40.31 kg/m2 John Jeffries MD blood pressure, diastolic 74 mm[Hg] An lisa Basestt blood pressure, systolic 133 mm[Hg] Any maren Bassett oxygen saturation, oximetry 95 % Tiny Bassett pulse rate 89 /min Tiny Bassett weight E&M 281 [lb_av] Tiny Bassett blood pressure, cuff size large An lisa Bassett height E&M 70 [in_i] Tiny Serjio Body Mass Index (Ratio) 40.03 kg/m2 John Jeffries MD blood pressure, systolic 131 mm[Hg] Leora a Andino blood pressure, diastolic 74 mm[Hg] Sa ra Andino blood pressure, cuff size large Sa ra Andino oxygen saturation, oximetry 97 % Mary Andino respiratory rate E&M 19 /min Mary Si ms pulse rate 82 /min Mary Andino weight E&M 279 [lb_av] Mary Andino height E&M 70 [in_i] Mary Andino Body Mass Index (Ratio) 40.75 kg/m2 John Jeffries MD blood pressure, cuff size large Ke rri Edvinuealec blood pressure, diastolic 70 mm[Hg] Ke rri Edvinuealec blood pressure, systolic 122 mm[Hg] Ker ri Beverly oxygen saturation, oximetry 95 % Sharon Gannkennyer respiratory rate E&M 18 /min Sharon Lowe herotovaelder pulse rate 63 /min Sharon Jackson [facility] weight E&M 284 [lb_av] Sharon Jackson [facility] height E&M 70 [in_i] Sharon Jackson [facility] Body Mass Index (Ratio) 40.89 kg/m2 John Jeffries MD blood pressure, diastolic 88 mm[Hg] Ma ha O'[facility] blood pressure, systolic 148 mm[Hg] Devi [facility] oxygen saturation, oximetry 96 % [facility] OR[facility]olph respiratory rate E&M 16 /min [facility] OR[facility]olph pulse rate 96 /min [facility] blood pressure, resting Yes [facility] weight E&M 285 [lb_av] Patsy O'[place] height E&M 70 [in_i] Patsy O'[place]udolph Body Mass Index (Ratio) 41.32 kg/m2 John Jeffries MD blood pressure, diastolic 76 mm[Hg] Heriberto [facility] blood pressure, systolic 120 mm[Hg] Jean vignesh [place] oxygen saturation, oximetry 97 % [facility] respiratory rate E&M 16 /min Verito Matthew pulse rate 86 /min [place] Matthew weight E&M 288 [lb_av] [place] Matthew height E&M 70 [in_i] [place] Matthew Body Mass Index (Ratio) 41.32 kg/m2 John Jeffries MD blood pressure, diastolic 80 mm[Hg] [facility], [facility] 120 mm[Hg] Kil vignesh [place] oxygen saturation, oximetry 98 % Verito Mirandaam respiratory rate E&M 16 /min Verito [place] pulse rate 85 /min Verito Matthew weight E&M 288 [lb_av] Verito [place] height E&M 70 [in_i] Verito Matthew ALLERGIES No Known Drug Allergies RESULTS Date Observation Value Provider Reference Range Interpretation Location 1 thyroid stimulating hormone, serum 0.948 ??IU/ML [facility] 0.270 - 4.200 1 very low density lipoproteins 18.0 mg/dL [facility] 5.0 - 40.0 1 LDL/HDL (low-density lipoprotein/high-den sity lipoprotein) ratio 2.1 RATIO [facility] - 1 lipoprotein, beta, serum, point, quantitative, calculated 87.0 (?) [facility] 0.0 - 100.0 1 HDL cholesterol, serum 42.0 mg/dL [facility] 35.0 - 55.0 1 cholesterol, serum 147.0 mg/dL [facility] 0.0 - 200.0 1 triglyceride, serum, fasting 90.0 mg/dL [facility] 0.0 - 150.0 1 anion gap, serum 14.1 [facility] - 1 albumin/globulin ratio, serum 1.9 g/dL [facility] 1.1 - 2.5 1 globulin, serum 2.4 [facility] 2.3 - 3.8 1 urea nitrogen/creatinine ratio, serum 16.0 [facility] - 1 Estimated Glomerular Filtration Rate (calc) 82.5 (?) [facility] 59.0 - 1 chloride, serum 98.9 mmol/L [facility] 98.0 - 107.0 1 potassium, serum 4.5 mmol/L [facility] 3.5 - 5.1 1 sodium, serum 138.0 mmol/L [facility] 136.0 - 145.0 1 creatinine, serum 1.0 mg/dL [facility] 0.7 - 1.2 1 carbon dioxide, venous blood 25.0 mmol/L [facility] 22.0 - 29.0 1 albumin, serum 4.6 g/dL [facility] 3.5 - 5.2 1 calcium, serum 9.5 mg/dL [facility] 8.6 - 10.2 1 aspartate aminotransferase (SGOT), serum 26.0 1/L [facility] 0.0 - 40.0 1 alkaline phosphatase, serum 90.0 1/L [facility] 40.0 - 130.0 1 alanine aminotransferase (SGPT), serum 21.0 1/L [facility] 0.0 - 41.0 1 protein, total, serum 7.0 g/dL [facility] 6.6 - 8.7 1 bilirubin, serum, total 0.8 mg/dL [facility] 0.0 - 1.2 1 urea nitrogen, blood 16.0 mg/dL [facility] 6.0 - 20.0 1 blood glucose, random 118.0 mg/dL [facility] 74.0 - 99.0 High 1 red blood cell distribution width, size density 44.7 fL [facility] - 1 immature granulocytes, percentage of total cells, blood 0.2 % [facility] - 1 nucleated red blood cells as percent of blood leukocytes 0.0 % [facility] - 1 red blood cell (erythrocyte) count, per high power field 0.0 10*3/UL [facility] - 1 eosinophils as percent of blood leukocytes 1.4 % [facility] - 1 neutrophils as percent of blood leukocytes 58.2 % [facility] - 1 Absolute Neutrophils 6.0 CELLS/UL [facility] 1.5 - 7.8 1 basophils as percent of blood leukocytes 0.6 % [facility] - 1 Absolute Basophils 0.1 CELLS/UL [facility] 0.0 - 0.2 1 monocytes as percent of blood leukocytes 5.8 % [facility] - 1 Absolute Monocytes 0.6 CELLS/UL [facility] 0.2 - 1.0 1 lymphocytes as percent of blood leukocytes 33.8 % [facility] - 1 Absolute Lymphocytes 3.5 CELLS/UL [facility] 0.9 - 3.9 1 mean platelet volume 9.7 (?) [facility] - 1 platelet count 258.0 THOUSAND/ UL [facility] 100.0 - 400.0 1 mean corpuscular hemoglobin concentration, RBC 33.1 G/DL [facility] 31.0 - 38.0 1 mean corpuscular hemoglobin, RBC 30.6 pg [facility] 25.0 - 35.0 1 mean corpuscular volume, RBC 92.4 fL [facility] 75.0 - 100.0 1 hematocrit, blood 46.5 % [facility] 35.0 - 55.0 1 hemoglobin, blood 15.4 g/dL [facility] 11.5 - 16.5 1 erythrocyte count, whole blood 5.0 MILLION/U L [facility] 3.5 - 5.5 1 hemoglobin A1C, blood, as % of total hemoglobin 5.9 % [facility] 4.0 - 5.6 High HISTORY OF MEDICATION USE Medication Status Instructions Dates Provider Indications Com ese Morales 2.5 mg/0.5 mL pen injector active Inject 1 pen injector subcutaneously once a week Gamaliel Jeffries MD tadalafil 5 mg tablet active TAKE 1 TABLET BY MOUTH ONCE DAILY Letty Cuenca NP albuterol sulfate 2.5 mg/3 mL (0.083 %) solution for nebulization active USE 1 VIAL IN NEBULIZER THREE TIMES DAILY DIRECTED Letty Cuenca NP ergocalciferol (vitamin D2) 1,250 mcg (50,000 unit) capsule active TAKE 1 CAPSULE BY MOUTH ONCE A WEEK Letty Cuenca NP Trelegy Ellipta 100-62.5-25 mcg blister with device active Gillian Ventimiglia ORACLE TECHNICAL DEVELOPER tamsulosin 0.4 mg capsule active Gillian Ventimiglia ORACLE TECHNICAL DEVELOPER calcitriol 0.25 mcg capsule active Gillian GARCES metformin 500 mg tablet active Take 1 tablet by mouth twice a day Mary Andino furosemide 40 mg tablet active 1 by mouth once a day Gillian GARCES DIOVAN 160 MG ORAL TABLET completed ONE TABLET DAILY - Verito Matthew NUVIGIL 150 MG ORAL TABLET completed ONE TABLET DAILY PRESCRIBED BY DR JAQUEZ - SKY WOOD MD lisinopril 20 mg tablet active 1 tablet by mouth once a day Letty Cuenca NP POTASSIUM CHLORIDE MARCIA ER 10 MEQ ORAL TABLET EXTENDED RELEASE completed ONE TABLET DAILY - SKY WOOD MD FUROSEMIDE 40 MG ORAL TABLET completed ONE TABLET DAILY - SKY WOOD MD Zoloft 50 mg tablet active 1 tablet once a day Gillian GARCES HYDROCODONE-ACETA MINOPHEN 5-325 MG ORAL TABLET completed ONE TABLET TWICE DAILY NEEDED - Verito Matthew Neurontin 600 mg tablet active 1 tablet by mouth three times a day Gillian GARCES SOCIAL HISTORY Date Observation Value Provider drug use no Gamaliel Charlton alcohol use no Gamaliel Charlton passive cigarette sm jennifer exposure no Gamaliel Jeffries MD smoking/tobacco cess ation, patient education and counseling yes Gamaliel Jeffries MD smoking history, tot al pack/day 15 cigs a day Gamaliel Jeffries MD cigarette use yes Gamaliel Jeffries MD smoking status Current every da y smoker Gamaliel Jeffries MD drug use no Gamaliel Charlton alcohol use no Gamaliel Charlton passive cigarette sm jennifer exposure no Gamaliel Jeffries MD smoking/tobacco cess ation, patient education and counseling yes Gamaliel Jeffries MD smoking history, tot al pack/day 15 cigs a day Gamaliel Jeffries MD cigarette use yes Gamaliel Jeffries MD smoking status Current every da y smoker Gamaliel Jeffries MD drug use no Gamaliel Hylton D alcohol use no Gamaliel Hylton D passive cigarette sm jennifer exposure no Gamaliel Jeffries MD smoking/tobacco cess ation, patient education and counseling yes Gamaliel Jeffries MD smoking history, tot al pack/day 15 cigs a day Gamaliel Jeffries MD cigarette use yes Gamaliel Jeffries MD smoking status Current every da y smoker Gamaliel Jeffries MD social history E&M Marital Statu s: Single C hildren: 1 O ccupation: Disability Smoking History: P atient currently smokes every day. 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 TENDER smoking history, tot al pack/day 15 cigs a day Bhavya Nayely cigarette use yes Bhavya Nayely smoking status Current every da y smoker Bhavya Nayely drug use no Gillian Ventimig louis [facility] alcohol use no Gillian Ventimig louis [facility] passive cigarette sm jennifer exposure no Tiny Bassett smoking/tobacco cess ation, patient education and counseling yes Tiny Bassett smoking history, tot al pack/day 1< Tiny Serjio cigarette use yes Tinymaren Bassett smoking status Current every da y smoker Tiny Bassett social history reviewed E&M revi ewed - no changes required Gamaliel Jeffries MD social history E&M Marital Statu s: Single C arielen: 1 O ccupation: Disability Smoking History: P atient currently smokes every day. P atient has been counseled to quit. Gamaliel Jeffries MD social history reviewed E&M revi ewed - no changes required Gamaliel Jeffries MD passive cigarette sm jennifer exposure no Sharon Gannjohn smoking/tobacco cess ation, patient education and counseling yes Sharon Paul smoking history, tot al pack/day 1< Sharon Paul cigarette use yes Sharon lopez smoking status Current every da y smoker Sharon Paul social history E&M Marital Statu s: Single Dorothea mckenzie: 1 O ccupation: Disability Smoking History: P atient currently smokes every day. P atient has been counseled to quit. Gamaliel Jeffries MD social history reviewed E&M revi ewed - no changes required Gamaliel Jeffries MD passive cigarette sm jennifer exposure no Patsy O'Rudolph smoking/tobacco cess ation, patient education and counseling yes Patsy O'Rudolph smoking history, tot al pack/day 1< Patsy O'Rudolph cigarette use yes Ptasy O'Rudolph smoking status Current every da y smoker Patsy O'Rudolph social history E&M Marital Statu s: Single Dorothea mckenzie: 1 O ccupation: Disability Smoking History: P atient currently smokes every day. P atient has been counseled to quit. Gamaliel Jeffries MD social history reviewed E&M revi ewed - no changes required Gamaliel Jeffries MD number of grandchildren Gamaliel Jeffries MD Verito Matthew alcohol use no Cleveland Matthew smoking/tobacco cess ation, patient education and counseling yes Verito Matthew passive cigarette sm jennifer exposure no [place] Matthew smoking history, tot al pack/day 1< [place] Matthew cigarette use yes Verito Matthew smoking status Current every da y smoker Verito Matthew smoking/tobacco cess ation, patient education and counseling yes Gamaliel Jeffries MD alcohol use no Gamaliel Charlton passive cigarette sm jennifer exposure no Gamaliel Jeffries MD smoking history, tot al pack/day 1< Gamaliel Jeffries MD social history reviewed E&M revi ewed - no changes required Gamaliel Jeffries MD social history E&M Marital Statu s: Single C hildren: 1 O ccupation: Disability Smoking History: Liang moreno currently smokes every day. Gamaliel Jeffries MD cigarette use yes Verito Mirandaam smoking status Current every da y smoker Verito Matthew FAMILY HISTORY Family Member Condition Mother Family History of Melissa ng Cancer: Father Family History of Co ngestive Heart Failure: INSURANCE PROVIDERS Payer name Policy type / Coverage type [place] [employer] party ID [facility] ADVANTAGE PLAN 2 (HMO-POS) Medicare [id number] ADVANCE DIRECTIVES Name Date DISCUSSED - NO DECISION MADE TREATMENT PLAN Date Name Performer [id number],C,P josh is a current daily smoker. Encouraged complete smoking cessation. Letty Cuenca NP [id number],C,D iscussed use of compression stockings. Patient agreeable. C ONCLUSIONS: Venous Dopplers 03/15/23 1 . No evidence of a deep vein thrombosis of the lower extremities bilaterally. 2 . Significant venous insufficiency of the great saphenous vein bilaterally. 3 . Significant venous insufficiency of the left small saphenous vein. 4 . Significant venous insufficiency of the right popliteal vein. Letty Cuenca NP [id number],CM anaged per PCP H is updated medication list for this problem includes: Lisinopril 40 Mg Tablet (Lisinopril) ..... 1 tablet by mouth once a day Metformin 500 Mg Tablet (Metformin) ..... Take 1 tablet by mouth twice a day Letty Cuenca NP [id number],C,T he patient is using CPAP on a regular basis. The patient has been benefiting from therapy and should continue use. Letty Estradateagan HARDWICK [id number],Dorothea,P er patient symptoms have improved C ONCLUSIONS: Echo 03/15/23 1 . Technically difficult study, limited parasternal views secondary to poor acoustic windows. Interpretation is based on a vailable limited views. Normal left ventricular systolic function. Normal left ventricular size. Mild concentric left ventricular h ypertrophy. There is E to A wave reversal consistent with impaired LV relaxation. E/E': 9.1 Left ventricular ejection fraction is m easured at 60 %. 2 . Normal appearing mitral valve leaflets. Mild mitral valve regurgitation. 3 . No significant valvular abnormalities. Letty Garciacleveland HARDWICK [id number],C,L ipid profile not completed as preeviously requested. Letty Estradateagan HARDWICK [id number],C,P josh has had soft BPs in the past few weeks and was hospitalized for the same. W ill reduce Lisinopril from 40 mg to 20 mg once rivera. B P today: 112/66 P rior BP: 133/74 (12/25/2022) Labs Reviewed: C reat: 1.0 (2016) C hol: 147.0 (2016) HDL: 42.0 (2016) T.0 (2016) Letty Estradateagan HARDWICK [id number],C,L ast A1C was 6.5% H is updated medication list for this problem includes: Lisinopril 40 Mg Tablet (Lisinopril) ..... 1 tablet by mouth once a day Metformin 500 Mg Tablet (Metformin) ..... Take 1 tablet by mouth twice a day Gillian Sprague [facility] [id number],C,T he patient is using CPAP on a regular basis. The patient has been benefiting from therapy and should continue use. Gillian Darcie [facility] [id number],C,P atient has SOB with mild to moderate activity. This is most likely multifactorial in setting of obesity, VERO and COPD. Will however, update labs to r/o underlying source. Will also do echo to r/o any LV dysfunction or WMA H is updated medication list for this problem includes: Lisinopril 40 Mg Tablet (Lisinopril) ..... 1 tablet by mouth once a day Furosemide 40 Mg Tablet (Furosemide) ..... 1 by mouth once a day [facility] [id number],C,W ill update lipids O rders: 9213 MOD 30-39min (CPT-48169) C omplete Echo (CPT-66226) V enous Doppler Bilateral LE (CPT-22293) B TYPE NATRIURETIC PEPTIDE (BNP) (71737) M icroalb/Creatinine Urine, Random (6517) L IPID PANEL (7600) [facility] [id number],C,c ontrolled. BP 133/74 today. Will continue present medication regimen O rders: 9213 MOD 30-39min (CPT-85705) C omplete Echo (CPT-79668) V enous Doppler Bilateral LE (CPT-36658) B TYPE NATRIURETIC PEPTIDE (BNP) (86292) M icroalb/Creatinine Urine, Random (6517) [facility] [id number],C,H as bilateral LE edema, with mild improvement with increase in diuretic therapy. Will update labs. Will also do standing venous doppler. Will return post testing or sooner if needed. Encouragd compression and elevation as well. O rders: 9213 MOD 30-39min (CPT-47214) C omplete Echo (CPT-57445) V enous Doppler Bilateral LE (CPT-79262) B TYPE NATRIURETIC PEPTIDE (BNP) (67259) M icroalb/Creatinine Urine, Random (6517) [facility] [id number],S, Gamaliel ornelas MD [id number],S, Gamaliel ornelas MD [id number],S, Gamaliel ornelas MD [id number],S, Gamaliel ornelas MD Cardiology Gamaliel Jeffries MD Cardiology Gamaliel Jeffries MD Cardiology: P er patient symptoms have improved C ONCLUSIONS: Echo 03/15/23 1 . Technically difficult study, limited parasternal views secondary to poor acoustic windows. Interpretation is based on a vailable limited views. Normal left ventricular systolic function. Normal left ventricular size. Mild concentric left ventricular h ypertrophy. There is E to A wave reversal consistent with impaired LV relaxation. E/E': 9.1 Left ventricular ejection fraction is m easured at 60 %. 2 . Normal appearing mitral valve leaflets. Mild mitral valve regurgitation. 3 . No significant valvular abnormalities. Gamaliel Jeffries MD Cardiology:Will revi ew duplex with tech to see if there is another vein causing this continued edema. W ill schedule for venaseal D iscussed use of compression stockings. Patient agreeable. C ONCLUSIONS: Venous Dopplers 03/15/23 1 . No evidence of a deep vein thrombosis of the lower extremities bilaterally. 2 . Significant venous insufficiency of the great saphenous vein bilaterally. 3 . Significant venous insufficiency of the left small saphenous vein. 4 . Significant venous insufficiency of the right popliteal vein. Gamaliel Jeffries MD Cardiology: T he patient is using CPAP on a regular basis. The patient has been benefiting from therapy and should continue use. Gamaliel Jeffries MD Cardiology Gamaliel Jeffries MD Cardiology Gamaliel Jeffries MD Cardiology Gamaliel Jeffries MD Cardiology:Will sche dule for venaseal D iscussed use of compression stockings. Patient agreeable. C ONCLUSIONS: Venous Dopplers 03/15/23 1 . No evidence of a deep vein thrombosis of the lower extremities bilaterally. 2 . Significant venous insufficiency of the great saphenous vein bilaterally. 3 . Significant venous insufficiency of the left small saphenous vein. 4 . Significant venous insufficiency of the right popliteal vein. Gamaliel Jeffries MD Cardiology Gamaliel Jeffries MD Cardiology Gamaliel Jeffries MD Cardiology:The patie nt is using CPAP on a regular basis. The patient has been benefiting from therapy and should continue use. Gamaliel Jeffries MD Cardiology Gamaliel Jeffries MD Cardiology Gamaliel Jeffries MD Cardiology:Patient i s a current daily smoker. Encouraged complete smoking cessation. Letty Cuenca NP Cardiology:Discussed use of compression stockings. Patient agreeable. C ONCLUSIONS: Venous Dopplers 03/15/23 1 . No evidence of a deep vein thrombosis of the lower extremities bilaterally. 2 . Significant venous insufficiency of the great saphenous vein bilaterally. 3 . Significant venous insufficiency of the left small saphenous vein. 4 . Significant venous insufficiency of the right popliteal vein. Letty Cuenca NP Cardiology:Managed p er PCP H is updated medication list for this problem includes: Lisinopril 40 Mg Tablet (Lisinopril) ..... 1 tablet by mouth once a day Metformin 500 Mg Tablet (Metformin) ..... Take 1 tablet by mouth twice a day Letty Cuenca NP Cardiology:The patie nt is using CPAP on a regular basis. The patient has been benefiting from therapy and should continue use. Letty Cuenca NP Cardiology:Per patie nt symptoms have improved C ONCLUSIONS: Echo 03/15/23 1 . Technically difficult study, limited parasternal views secondary to poor acoustic windows. Interpretation is based on a vailable limited views. Normal left ventricular systolic function. Normal left ventricular size. Mild concentric left ventricular h ypertrophy. There is E to A wave reversal consistent with impaired LV relaxation. E/E': 9.1 Left ventricular ejection fraction is m easured at 60 %. 2 . Normal appearing mitral valve leaflets. Mild mitral valve regurgitation. 3 . No significant valvular abnormalities. Letty Cuenca NP Cardiology:Lipid pro file not completed as preeviously requested. Letty Cuenca NP Cardiology:Patient h as had soft BPs in the past few weeks and was hospitalized for the same. W ill reduce Lisinopril from 40 mg to 20 mg once rivera. B P today: 112/66 P rior BP: 133/74 (12/25/2022) Labs Reviewed: C reat: 1.0 (2016) C hol: 147.0 (2016) HDL: 42.0 (2016) T.0 (2016) Letty Cuenca CHIP APPLYING MACHINE TENDER Cardiology:Last A1C was 6.5% H is updated medication list for this problem includes: Lisinopril 40 Mg Tablet (Lisinopril) ..... 1 tablet by mouth once a day Metformin 500 Mg Tablet (Metformin) ..... Take 1 tablet by mouth twice a day [facility] Cardiology:The patie nt is using CPAP on a regular basis. The patient has been benefiting from therapy and should continue use. [facility] Cardiology:Patient h as SOB with mild to moderate activity. This is most likely multifactorial in setting of obesity, VERO and COPD. Will however, update labs to r/o underlying source. Will also do echo to r/o any LV dysfunction or WMA H is updated medication list for this problem includes: Lisinopril 40 Mg Tablet (Lisinopril) ..... 1 tablet by mouth once a day Furosemide 40 Mg Tablet (Furosemide) ..... 1 by mouth once a day [facility] Cardiology:Will upda te lipids O rders: 9213 MOD 30-39min (CPT-68521) C omplete Echo (CPT-19810) V enous Doppler Bilateral LE (CPT-66718) B TYPE NATRIURETIC PEPTIDE (BNP) (20157) M icroalb/Creatinine Urine, Random (7717) L IPID PANEL (2020) [facility] Cardiology:controlle d. BP 133/74 today. Will continue present medication regimen O rders: 9213 MOD 30-39min (CPT-35315) C omplete Echo (CPT-33038) V enous Doppler Bilateral LE (CPT-13393) B TYPE NATRIURETIC PEPTIDE (BNP) (13971) M icroalb/Creatinine Urine, Random (6517) Gillian Ramirezia ORACLE TECHNICAL DEVELOPER Cardiology:Has bilat eral LE edema, with mild improvement with increase in diuretic therapy. Will update labs. Will also do standing venous doppler. Will return post testing or sooner if needed. Encouragd compression and elevation as well. O rders: 9 9214 MOD 30-39min (CPT-97963) C omplete Echo (CPT-87296) V enous Doppler Bilateral LE (CPT-34407) B TYPE NATRIURETIC PEPTIDE (BNP) (52201) M icroalb/Creatinine Urine, Random (6517) Gillian Sprague [facility] Cardiology Gamaliel Jeffries MD Cardiology Gamaliel Jeffries MD Cardiology Gamaliel Jeffries MD Cardiology Gamaliel Jeffries MD Cardiology Follow up Gamaliel silvestre MD Cardiology Follow up Gamaliel silvestre MD Cardiology Follow up Gamaliel silvestre MD Cardiology Follow up Gamaliel silvestre MD Cardiology Gamaliel Jeffries MD Cardiology Gamaliel Jeffries MD Cardiology Gamaliel Jeffries MD Cardiology Gamaliel Jeffries MD Cardiology Gamaliel Jeffries MD Cardiology Gamaliel Jeffries MD Cardiology Gamaliel Jeffries MD Cardiology Gamaliel Jeffries MD Cardiology Gamaliel Jeffries MD Cardiology Gamaliel Jeffries MD Cardiology Gamaliel Jeffries MD Cardiology Gamaliel Jeffries MD Cardiology Gamaliel Jeffries MD Cardiology Gamaliel Jeffries MD Cardiology Gamaliel Jeffries MD Date Name Venous Doppler Bilat eral LE VenaSeal Venous Doppler Bilat eral LE - Reflux LIPID PANEL Microalb/Creatinine Urine, Random B TYPE NATRIURETIC P EPTIDE (BNP) Venous Doppler Bilat eral LE Complete Echo Complete Echo Stress Regadenoson TSH, 3RD GENERATION W/REFLEX TO FT4 HEMOGLOBIN A1c LIPID PANEL COMPREHENSIVE METABO LIC PANEL W/EGFR CBC (INCLUDES DIFF/P LT) HISTORY OF PROCEDURES Procedure Date Procedure Name Provider Procedure Notes S tatus Complex e/m visit add on Gamaliel Jeffries MD completed EKG Gamaliel Jeffries MD complete d EKG Gamaliel Jeffries MD complete d EKG Gamaliel Jeffries MD complete d Regadenoson, 4 units Gamaliel Jeffries MD completed Cardiolite, 2 units Gamaliel Jeffries MD completed SPECT Images Geovany Sánchez MD compl eted Stress EKG Gamaliel Jeffries MD complete d EKG Gamaliel Jeffries MD complete d
--- OUTSIDE RECORDS SUMMARY | 2024-11-30 15:42 | XMS_ITS | Clinical Summary ---
Author Organization [facility] Address [address] [place] [address] Care Team Providers Care Nuclear Medicine Technologist Name Role Phone Brody Gonzalez MD Primary Care Provider Source Comments [facility],non-owned Affiliates and Associated Physician Practices is amultiple site organization consisting of ambulatory clinics and hospital sitesin [place], [place], [place] and [place]. This disclosure is being madepursuant to the Care Everywhere program and may not contain all information available regarding this patient. Last updated 18.[facility] Allergies No known active allergies Medications * [...] Active vitamin D, ergocalciferol, (Drisdol) 1.25 MG (88896 UT) capsule Take 1 (one) capsule by mouth every 7 days Active sodium chloride 1 GM tablet Take 1 (one) tablet by mouth once daily Active Active Problems Problem Noted Date Diagnosed Date Osteoarthritis of knee 02/06/2020 Obesity 02/06/2020 Cirrhosis (prior HCV + [facility] risks) 06/30/2018 Overview (06/22/2024): HCV cured with [...] Mass Index 35.58 06/22/2024 10:24 AM CDT Plan of Treatment Upcoming Encounters Date Type Department Care Team (Late st Contact Info) Description 06/21/2025 9:30 AM CDT Procedure visit [facility] [address] [place] [phone] 06/21/2025 10:00 AM CDT Office Visit [facility] [address] [place] [phone] Luís Grider MD [address] [place] [address] [place] [address] Health Maintenance Due Date Last Done Comments COLOGUARD (AGES 45-75) - COLON CA SCREENING 1960 COLON MONITORING 1960 COLONOSCOPY - COLON CA SCREENING 1960 CT COLONOGRAPHY - COLON CA SCREENING 1960 Colorectal Cancer Screening 1960 FIT - COLON CA SCREENING 1960 FLEX SIG - COLON CA SCREENING 1960 LIPID TESTING 1960 HIV SCREENING 1975 DTAP/TDAP/TD VACCINES (1 - Tdap) 1979 PNEUMOCOCCAL VACCINE 50+ (1 of 2 - PCV) 1979 LUNG CANCER SCREENING 2010 ZOSTER VACCINE (1 of 2) 2010 HEPATITIS B VACCINE (1 of 3 - Risk 3-dose series) 2020 Respiratory Syncytial Virus (RSV) Vaccine Pt: or over 60 yrs (1 - Risk 60-74 years 1-dose series) 2020 COVID-19 VACCINE ( - season) 2024 01/03/2022, 02/16/2021, 01/26/2021 DEPRESSION SCREENING 09/23/2024 MEDICARE AWV CALENDAR YEAR 2024 SCREENING FOR DIABETES 06/22/2027 , 01/15/2023, 01/17/2022, Additional history exists HEPATITIS C SCREENING Completed 02/06/2020 , 08/25/2019, 02/23/2019, Additional history exists INFLUENZA VACCINE Completed 08/06/2024, , 08/30/2022, Additional history exists HIB VACCINE Aged Out No longer eligi ble based on patient's age to complete this topic HPV VACCINE Aged Out No longer eligi ble based on patient's age to complete this topic MENINGOCOCCAL (Group B) VACCINE Aged Out No longer eligible based on patient's age to complete this topic MENINGOCOCCAL VACCINE Aged Out No josue cristina eligible based on patient's age to complete this topic Goals Goal Patient Goal Type Associated Problems Recent Progress Patient-Stated? Author Medication Management General On track( 024 10:31 AM CDT) No Nicky Del Castillo, RN Note: Expected end date: Ongoing Interventions: [...] REAL-TIME PCR QUANTASURE Routine 09/20/2015 2:00 PM SULFUR CHLORIDE OPERATOR from Last 3 Months or Most Recently Relevant to Health Maintenance Results * (ABNORMAL) COMPREHENSIVE METABOLIC PANEL (06/22/2024 12:06 PM [facility]) BUN 17 7 - 26 mg/dL 06/22/2024 1:22 PM [facility] Creatinine 0.97 0.71 - 1.16 mg/dL 06/22/2024 1:22 PM [facility] Sodium 139 136 - 145 mmol/L 06/22/2024 1:22 PM [facility] Potassium 4.2 3.5 - 4.5 mmol/L 06/22/2024 1:22 PM [facility] Chloride 105 98 - 107 mmol/L 06/22/2024 1:22 PM [facility] CO2 26 22 - 29 mmol/L 06/22/2024 1:22 PM [facility] Glucose 103 70 - 115 mg/dL 06/22/2024 1:22 PM [facility] Calcium 9.0 8.4 - 10.2 mg/dL 06/22/2024 1:22 PM [facility] Protein Total 7.2 6.0 - 8.3 g/dL 06/22/2024 1:22 PM [facility] Albumin 3.9 3.4 - 5.0 g/dL 06/22/2024 1:22 PM [facility] Bilirubin Total 0.4 0.2 - 1.2 mg/dL 06/22/2024 1:22 PM [facility] Alkaline Phosphatase 94 40 - 150 U/L 06/22/2024 1:22 PM [facility] ALT 15 5 - 55 U/L 06/22/2024 1:22 PM [facility] AST 19 5 - 34 U/L 06/22/2024 1:22 PM [facility] Anion Gap 8 6 - 16 06/22/2024 1:22 PM [facility] BUN/Creatinine Ratio 18 7 - 23 06/22/2024 1:22 PM [facility] Osmolality Calculated 290 275 - 295 mOsm/kg 06/22/2024 1:22 PM [facility] Albumin/Globulin Ratio 1.2 1.1 - 2.3 06/22/2024 1:22 PM [facility] eGFR by CKD-EPI 88(L) >=90 mL/min/1.7 3 m2 06/22/2024 1:22 PM [facility] Blood BLOOD SPECIMEN / Unknown Lab Venipuncture / Unknown 06/22/2024 12:06 PM CDT 06/22/2024 12:51 PM CDT Luís Grider MD LAB - CHEM ISTRY ORDERABLES Performing Organization Address [facility]/ZIP Co de Phone Number [facility] [address] [place] [address], [facility] [phone] * HEPATITIS C REAL-TIME PCR QUANTASURE (09/20/2015 2:00 PM SULFUR CHLORIDE OPERATOR) Hepatitis C Virus RNA PCR Quantitative <15 NOT DETECTED <15 IU/mL [facility] ([facility]) Hepatitis C Virus RNA Log IU/mL <1.18 NOT DETECTED <1.18 Log IU/mL [facility] ([facility]) See Note [facility] ([facility]) Comment: This test was performed using the NATI(R)AmpliPrep/ NATI(R)TaqMan(R)HCV Test, v2.0. The performance characteristics of this assay have been determined by [employer]. Performance characteristics refer to the analytical performance of the test. For more information on this test, go to: http://education.[employer]/faq/PBA97p3 (This link is being provided for informational/ educational purposes only.) Test Performed at: [facility] [address] [place] [address] NGUYEN GARCIA DO,MPH 09/20/2015 2:00 PM SULFUR CHLORIDE OPERATOR 09/20/2015 2:00 PM SULFUR CHLORIDE OPERATOR Darshan Bingham MD LAB - SEROLOGY ORDER PEPE Performing Organization Address City/[facility]/ZIP Co de Phone Number [facility] ([facility]) from Last 3 Months or Most Recently Relevant to Health Maintenance Care Teams Nuclear Medicine Technologist Relationship Specialty Start Date End Date Brody Gonzalez MD [address] [phone] PCP - General 05/20/18
--- OUTSIDE RECORDS SUMMARY | 2024-11-30 15:42 | XMS_ITS | Clinical Summary ---
Author Organization [facility] Address [address] [place] [phone] Care Team Providers Care Insulation Worker Interior Surface Name Role Phone Dee Gonzalez MD Primary Care Provide r Allergies No known active allergies Medications gabapentin [...] in support groups - Information given regarding [place] Tobacco Quit line: [phone] for free services - 4 minutes spent [...] only, we have discussed indications for use Encounters Date Type Department Care Team Description 11/24/2024 11:42 AM ETL BI DEVELOPER - 11/24/2024 11:59 PM ETL BI DEVELOPER Hospital Encounter [facility] [address] [place] [address] Discharge Disposition: Discharge to home or self care 11/23/2024 Telephone [facility] [address] [facility] [place] [address] Loc Nava MD 11/11/2024 Telephone [facility] [place] [address] No, Physician 11/06/2024 Telephone [facility] Radiation Oncology [address] [facility] [place] [address] No, Physician 11/04/2024 Telephone [facility] Rad[facility] [place] [address] No, Physician 10/30/2024 Telephone [facility] Radiation Oncology [facility] [place] [address] No, Physician 10/26/2024 Orders Only [facility] Rad[facility] [place] [address] Loc Nava MD Prostate cancer (HCC) (Primary Dx) from Last 3 Months Surgical History Surgery Date Site/Laterality Comments OTHER SURGICAL HISTORY mass removed under rt arm and lymph node and rt arm KNEE SURGERY Bilateral Medical History Medical History Date Comments Personal history of other in fectious and parasitic diseases History of hepatitis C - (Ad ded by TW Conv) Personal history of other me ntal and behavioral disorders History of depression - (Add ed by TW Conv) Hypertension Kidney stone Depression Sleep apnea Diabetes mellitus (HCC) Kidney disease Cigarette nicotine dependenc e without complication 06/03/2024 Family History Medical History Relation Name Comments Hypertension Brother Michael Kidney disease Brother Michael COPD Mother Pulmonary arrest Mother Cancer Other Cancer - (Added by TW Conv) Heart disease Sister Kidney disease Sister Relation Name Status Comments Brother Michael Mother Other Sister Social History Tobacco Use Types Packs/Day [...] on file Legal Sex Male 2:58 PM ETL BI DEVELOPER Gender Identity Not on file Sexual Orientation Not on file Obstetrics History Last Filed Vital Signs Vital Sign Reading [...] 06/03/2024 9:33 AM CDT Plan of Treatment Health Maintenance Due Date Last Done Comments Albumin Creatinine Ratio, Urine 1960 Colon Cancer Screening-Colonoscopy 1960 Hemoglobin A1C 1960 Hepatitis C Screening 1960 Prostate Cancer Screening-PSA 1960 Dilated Eye Exam 1960 Foot Exam 1960 DTaP/Tdap/Td Vaccine (1 - Tdap) 1971 Hepatitis B Screening 1978 Regular Well Visit/Exam 18-64 1978 Pneumococcal vaccine <65 (1 of 2 - PCV) 1979 Lung Cancer Screening 2010 Zoster Vaccine (1 of 2) 2010 Depression Screening 03/08/2024 03/08/2023, 03/08/20 23 Lipid Panel 03/09/2024 03/09/2023, 07/13/2014 eGFR 03/09/2024 03/09/2023, 03/08/2023 Covid-19 Vaccine (8 - 2023-2 5 season) 2024 01/09/2023, 01/03/2022, 11/04/2021, Additional history exists Influenza Vaccine Completed 08/06/2024, , 08/30/2022, Additional history exists Medical Devices Implanted Type Area Campus Administrator Device Identifier Shelf Expiration Date Model / Serial / Lot [employer] 192-124 Polaris Ultra Nautilus 5fr 2.1fr 28cm 2 Durometer Taper Tip Low - [id number] Implanted:Qty: 1 on 03/14/2018 by Peter Reyes MD at [facility] Right: Ureter [employer] [id number] 05/14/2020 [id number] / / [id number] Procedures Procedure Name Priority Date/Time Associated Diagnosis Comments MR BODY OUTSIDE REFERENCE Routine 11/24/2024 11:42 AM ETL BI DEVELOPER LIPID PANEL Routine 03/09/2023 11:38 AM CDT EGFR Routine 03/09/2023 4:56 AM CDT from Last 3 Months or Most Recently Relevant to Health Maintenance Results * MR Body Outside Reference (11/24/2024 11:42 AM ETL BI DEVELOPER) Impressions RAD[facility]PACS_[facility] - 11/24/2024 11:42 AM ETL BI DEVELOPER These images are for Reference purposes only and have not been reviewed by [facility] Radiology. There will be no report generated by a [facility] Radiologist. Narrative RAD_PACS_[facility] - 11/24/2024 11:42 AM ETL BI DEVELOPER EXAMINATION: Images For Reference Purposes Only us Loc Nava MD IMG MRI PROCEDURES Fin al Result RAD_PACS_[facility] * (ABNORMAL) Lipid panel (03/09/2023 11:38 AM CDT) Cholesterol 120 30 - 199 mg/dL K[facility]IE DIAMOND Comment: Interpretive Data Ages [...] on 2018. Triglycerides 136 <=149 mg/dL KATHIE DIAMOND Comment: Interpretive Data Ages [...] 8 AM CDT 03/09/2023 12:00 PM CDT Ramsey Jimenes MD LAB BLOOD ORDERABLES Final Result KATHIE DIAMOND [id number] [place] [address] * eGFR (03/09/2023 4:56 AM CDT) eGFR [...] 4:56 AM CDT 03/09/2023 5:55 AM CDT Rimma Singleton NP LAB BLOOD ORDERABLES Final R esult KATHIE [address] [place] [address] from Last 3 Months or Most Recently Relevant to Health Maintenance Insurance [facility] MEDICARE MEDICARE SOL[employer]IONS [facility] MEDICARE Address: [address] [address] Advance Directives For more information, please contact: [phone] * Full Code (Latest Code Status on File) Date Activated Date Inactivated Comments 03/09/2023 5:09 AM 03/09/2023 10:39 PM Care Teams Insulation Worker Interior Surface Relationship Specialty Start Date End Date Dee Gonzalez MD [address] [facility] [address] [place] [address] PCP - General 06/27/18
--- OUTSIDE RECORDS SUMMARY | 2024-11-30 15:43 | XMS_ITS ---
Author Organization [facility] Address [id number] [place] [address] Care Team Providers Care Miller Kiln Dried Salt Name Role Phone Manolo Headley Unavailable [phone] MEDICATIONS Medication SIG (Take, Route, Frequency, Duration) Notes Start Date End Date Status Albuterol Sulfate 108 (90 Base) MCG/ACT 1 puff as needed Inhalation every 4 hrs 10/28/2024 Active Calcitriol 0.25 MCG TAKE 1 CAPSULE BY MO UTH EVERY OTHER DAY for 90 Active Furosemide 20 MG 1 tablet Orally Once a day for 30 day(s) 10/28/2024 11/27/2024 Active Lisinopril 20 MG 1 tablet Orally twic e a day for 90 days 05/31/2023 Active Sodium Chloride 1 GM as directed Orally once a day for 90 days 06/03/2024 10/23/2025 Active Vitamin D (Ergocalciferol) 1.25 MG (33968 UT) Take 1 capsule by mouth once a week for 91 Active Encounters Encounter Location Date Provider Diagnosis [facility] [address] [facility] [address] [place] [address] 10/28/2024 Manolo Headley PLAN OF TREATMENT Medication Medication Name Sig Start Date Stop Date Notes Albuterol Sulfate 108 (90 Base) MCG/ACT 1 puff as needed Inhalation every 4 hrs 10/28/2024 Calcitriol 0.25 MCG TAKE 1 CAPSULE BY MO UTH EVERY OTHER DAY for 90 Furosemide 20 MG 1 tablet Orally Once a day for 30 day(s) 10/28/2024 11/27/2024 Lisinopril 20 MG 1 tablet Orally twic e a day for 90 days 05/31/2023 Sodium Chloride 1 GM as directed Orally once a day for 90 days 06/03/2024 10/23/2025 Vitamin D (Ergocalciferol) 1.25 MG (46123 UT) Take 1 capsule by mouth once a week for 91 Next Appt Details Provider Name:Manolo Headley , 12/02/2024 04:15:00 PM, [address] [facility], [facility] [address], [place], [address], Progress Notes * Celio FOOTE RDOB:1960 (64 yo M)Acc No.[id number]:10/28/2024 Patient: Celio FOOTE :1960 Age:64 Y Sex:Male Address:[address] [place] [address] * Refills Refill Calcitriol Capsule, 0.25 MCG, 45 Capsule, TAKE 1 CAPSULE BY MOUTH EVERY OTHER DAY, 90, Refills=0 Refill Sodium Chloride Tablet, 1 GM, Orally, 90 Tablet, as directed, once a day, 90 days, Refills=3 Refill Vitamin D (Ergocalciferol) Capsule, 1.25 MG (64292 UT), 13 Capsule, Take 1 capsule by mouth once a week, 91, Refills=0 Refill Lisinopril Tablet, 20 MG, Orally, 180 Tablet, 1 tablet, twice a day, 90 days, Refills=2 Start Furosemide Tablet, 20 MG, Orally, 30, 1 tablet, Once a day, 30 day(s) Start Albuterol Sulfate Aerosol Powder Breath Activated, 108 (90 Base) MCG/ACT, Inhalation, 1 puff as needed, every 4 hrs * * Date:
== END 2024-11-30 13:38 | disposition home or self-care (01) ==
PROVIDERS: PCP Internal Medicine; Visit Provider Internal Medicine Hematology & Oncology
DX: C61 Malignant neoplasm of prostate (principal)
CPT/HCPCS: 78815; A9596